=== PATIENT | female | born 1945 | race Caucasian/White ===

== ENCOUNTER 2016-09-10 13:33 | Inpatient (IN) ==
--- NOTE | 2016-09-10 15:18 | Diag Imaging Result Doc PS360 ---
EXAM: CHEST-PORTABLE HISTORY: pleural effusion, right TECHNIQUE: AP portable at 1504 COMMENT: There is complete opacification of the right hemithorax. The heart size and pulmonary vascularity are within normal limits in the left lung is apparently clear. IMPRESSION: Massive right pleural effusion and atelectasis. Possibility of pneumonia on the right cannot be excluded. Electronically signed by Master Carrion 09/10/2016 3:15 PM
--- NOTE | 2016-09-10 17:01 | HISTORY AND PHYSICAL ---
PRIMARY CARE PHYSICIAN: Dr. Elías Oh. GI DOCTOR: Dr. Gutiérrez. CHIEF COMPLAINT: "I wasn't breathing right and my feet were swelling for two days". HISTORY OF PRESENT ILLNESS: Ms. Hernández is a 71-year-old, female, who carries a past medical history of arthritis, COPD, hypertension, thyroid disease, on top of hereditary cramps. The patient stated that she began to get short of breath two days ago. She said she had some swelling THAT started in her feet that moved up to her knees, and then the shortness of breath began, but her reported that she has been short of breath with exertion for a month or longer, as well as ongoing swelling for several months since her last discharge back in November. He actually states that all this goes back further than that. It all stemmed from when she had a cholecystectomy and it was supposed to be done laparoscopic and had to be done open, and he stated that since then she has been ill and has not been her normal self. The patient went to [facility]. She was found to have a large right pleural effusion. Due to their lack of subspecialty with pulmonary, she was transferred to [facility]. She has undergone a chest x- ray that does show a massive right pleural effusion. The patient does not complain of any shortness of breath at this time in the bed; however, she states she is more short of breath with exertion. She does have bilateral lower extremity pitting edema that does go up to her knees; the right is greater than the left. She does complain of intermittent nausea that has been going on for several years. No vomiting. No chest pain. No fever, but she does get chills. She states she has IBS so she alternates between constipation and diarrhea. However, she denies any bloody or dark tarry stools. No dysuria. EKG at [facility] did show normal sinus rhythm. Laboratory data from [facility] showed a sodium of 139, potassium of 3.6. Blood glucose of 120. A BUN of 20 and a creatinine of 1.1. White count of 5, hemoglobin of 11, hematocrit of 37 and a platelet count of 66. I did speak with the patient will about having an ultrasound-guided thoracentesis today; however, she states that she is too tired and hungry, and she would just rather have it in the morning. Again she is resting comfortably in the bed on 3 L nasal cannula, not show any signs of any respiratory distress. PAST MEDICAL HISTORY: 1. Arthritis. 2. COPD on home O2 and nebulizers. 3. Hypertension. 4. Hypothyroidism. 5. Hereditary cramps. 6. Cirrhosis of the liver likely secondary to hepatic steatosis. However, per the this was ruled out by gastroenterologists. 7. Morbid obesity. 8. Thrombocytopenia secondary to liver disease. PAST SURGICAL HISTORY: 1. x2. 2. Right shoulder rotator cuff. 3. Cholecystectomy. 4. Gastric bypass. 5. Thyroidectomy. SOCIAL HISTORY: The patient lives with her . She quit smoking more than 3 years ago. Denies alcohol or illicit drug use. FAMILY HISTORY: Arthritis, asthma, breast cancer, diabetes, hypertension, respiratory conditions, body cramps in the mother and brother and son that they have not been able to diagnose in any other family members, including herself. HOME MEDICATIONS: Have not been reconciled. ALLERGIES: 1. Allergy to iodine causes rash, red face and itching. 2. Oral iodine contrast media. 3. Per the any type of anti anxiety medication causes respiratory distress; however, this is not listed as an allergy. MEDICATION LIST: I do have a medication list, however these have not been confirmed from her PCP office of: 1. Promethazine. 2. Tizanidine. 3. Spironolactone. 4. Levoxyl. 5. Lasix; however per the this has been stopped and the patient has been started on Bumetanide 1 mg two times daily. 6. Ipratropium bromide. 7. Albuterol sulfate. 8. Symbicort. 9. Simethicone. 10. Nucynta. 11. Lomotil. 12. Butrans 20 microgram patch weekly as prescribed by Dr. Murphy per patient report. 13. Nebulizers. REVIEW OF SYSTEMS: Ten point review of systems completely negative, except for those mentioned in HPI. PHYSICAL EXAMINATION: VITAL SIGNS: Temperature is 98.5 degrees, heart rate 97, respirations 18, blood pressure 135/75, O2 is 100% on 3 L nasal cannula. GENERAL: Ms. Hernández is a 71-year-old, morbidly obese, female, who is sitting up in bed in no acute distress. HEENT: Atraumatic, normocephalic. PERRL. NECK: Supple. Trachea midline. CV: No murmurs, gallops, rubs noted. RESPIRATORY: Lung sounds decreased in all lung rutledge. However, it is decreased in all the right lung field and bilaterally decreased in the bases. GI: Obese, soft, nontender, nondistended. Positive bowel sounds 4 quadrants. EXTREMITIES: Have 3+ to 4+ pitting edema. Unable to palpate pedal pulses due to the extremity of her edema. She does have some redness and tenderness to the touch. There is no oozing. She does have upper extremity bilateral bruising. NEURO: Patient is awake, alert, oriented x3. She follows commands. She moves all extremities. SKIN: Frail, dry and intact. Bruising noted to the upper extremities. DIAGNOSTIC DATA: Shows a massive right pleural effusion. LABORATORY DATA: As in HPI from [facility], we are awaiting our own laboratory data. ASSESSMENT AND PLAN: 1. Massive right pleural effusion. We will consult pulmonology. We will schedule an ultrasound- guided paracentesis in the morning. Will continue on her supplemental oxygen , elevate the head of the bed and place her on a healthy heart diet and make her on nothing by mouth after midnight. Continue with her home medications once they have been verified. 2. Chronic obstructive pulmonary disease without exacerbation. Continue home oxygen, as well as her breathing treatments. 3. Arthritis with chronic pain. Continue home medications once they are verified. The patient does have a pain patch on which they state is due to be changed. 4. Asthma. Continue breathing treatments. 5. Hypertension. Continue to monitor. 6. Hypothyroidism status post thyroidectomy. Continue with home Synthroid. 7. Question of cirrhosis of the liver likely due to hepatic steatosis. At one point in time, the patient was on lactulose as well as Xifaxan; however, per her primary care provider she is no longer on these medications. 8. We will go ahead and check an echocardiogram as well as a proBNP. 9. Further recommendation is to follow physician evaluation, laboratory and diagnostic data, as well as pulmonology consult. Dictated by MJ Ruth for Fahad Dickey MD cc: MD Elías Aguilar MD MTDD
[2016-09-10 17:16] LABS: MANUAL DIFF NEEDED? NO
[2016-09-10 17:23] LABS: BASO% 0.5 % (0.0-0.8); EOS# 0.19 X1000 (0.0-0.7); EOS% 3.2 % (0.0-10.0); HEMATOCRIT 39.6 % (37.0-47.0); HEMOGLOBIN 12.6 g/dL (12.0-16.0); LYMPH# 1.05 X1000 (1.2-3.4); LYMPH% 17.7 % (20.5-51.1); MCH 31.1 PG (27-31); MCHC 31.8 g/dL (33-37); MCV 97.8 FL (81-99); MONO# 0.63 X1000 (0.11-0.59); MONO% 10.6 % (1.7-9.3); PLT 73 X1000 (130-400); RBC 4.05 XMIL (4.2-5.4)
[2016-09-10 17:33] LABS: INR 1.13
[2016-09-10 17:40] LABS: ALBUMIN 3.5 g/dL (3.5-5.0); CALCIUM 8.9 mg/dL (8.8-10.2); MAGNESIUM 1.7 mg/dL (1.5-2.7); POTASSIUM 3.5 mmol/L (3.5-5.1); TOTAL BILIRUBIN 2.27 mg/dL (0.20-1.00); TOTAL PROTEIN 6.8 g/dL (6.3-8.3)
[2016-09-10 19:09] LABS: URINE MICRO REVIEW NEEDED? NO; URINE SOURCE CLEAN CATCH
[2016-09-10 19:18] LABS: BILIRUBIN URINE NEGATIVE (NEGATIVE); BLOOD URINE MODERATE (NEGATIVE); COLOR YELLOW; GLUCOSE URINE NEGATIVE (NEGATIVE); LEUKOCYTES URINE SMALL (NEGATIVE); NITRITE URINE NEGATIVE (NEGATIVE); PROTEIN URINE TRACE mg/dL (NEGATIVE); SP GRAVITY URINE 1.014; TURBIDITY URINE CLEAR (CLEAR); UR EPITHELIAL CELLS <10 /HPF (<10); URINE BACTERIA NEGATIVE /HPF; URINE CULTURE NEEDED? YES; URINE RBC TNTC /HPF (<10); UROBILINOGEN URINE 8 mg/dL (NORMAL)
[2016-09-10] MEDS ORDERED: BUPRENORPHINE 20 MCG TD SCH (22:30)
[2016-09-10] MEDS ORDERED: DUONEB (A & A) ONE (22:34)
[2016-09-10] MEDS: ZANAFLEX PO PRN (22:52)
[2016-09-10] MEDS: PHENERGAN PO SCH (22:52)
[2016-09-11 05:05] LABS: MANUAL DIFF NEEDED? NO
[2016-09-11] MEDS: PHENERGAN PO SCH ×2 (05:05→10:36)
[2016-09-11 05:35] LABS: AGAP 7; ALBUMIN 3.1 g/dL (3.5-5.0); ALKALINE PHOSPHATASE 97 U/L (32-104); BUN 16 mg/dL (8-22); CALCIUM 8.3 mg/dL (8.8-10.2); CHLORIDE 97 mmol/L (98-107); COSMO 283; GOT 28 U/L (10-30); GPT 19 U/L (10-36); POTASSIUM 3.7 mmol/L (3.5-5.1); SODIUM 140 mmol/L (136-145); TCO2 36 mmol/L (25-35); TOTAL BILIRUBIN 1.67 mg/dL (0.20-1.00); TOTAL PROTEIN 5.9 g/dL (6.3-8.3)
--- NOTE | 2016-09-11 05:35 | EKG Report ---
Test Performed on : 09/10/2016 4:09:46 PM Test Reason : eval Blood Pressure : / mmHG Vent. Rate : 098 BPM Atrial Rate : 098 BPM P-R Int : 154 ms QRS Dur : 080 ms QT Int : 372 ms P-R-T Axes : 062 029 038 degrees QTc Int : 474 ms Normal sinus rhythm. Normal ECG When compared with ECG of 11-DEC-2015 10:31, T wave inversion no longer evident in Lateral leads Confirmed by Jose D AJ, Elieser West ([id number]) on 09/13/2016 9:10:17 AM
[2016-09-11 05:51] LABS: BASO% 0.5 % (0.0-0.8); EOS# 0.21 X1000 (0.0-0.7); EOS% 3.7 % (0.0-10.0); HEMATOCRIT 36.4 % (37.0-47.0); HEMOGLOBIN 11.4 g/dL (12.0-16.0); LYMPH# 1.12 X1000 (1.2-3.4); LYMPH% 19.5 % (20.5-51.1); MCH 31.1 PG (27-31); MCHC 31.3 g/dL (33-37); MCV 99.2 FL (81-99); MONO# 0.61 X1000 (0.11-0.59); MONO% 10.6 % (1.7-9.3); MPV 12.4 FL (7.4-10.4); NEUT% 65.7 % (42.2-75.2); PLT 66 X1000 (130-400); RBC 3.67 XMIL (4.2-5.4)
[2016-09-11] MEDS: SYNTHROID PO SCH (06:34)
[2016-09-11] MEDS ORDERED: BUPRENORPHINE 20 MCG TD SCH (07:30)
[2016-09-11] MEDS: BUMEX PO SCH ×2 (08:03→21:14)
[2016-09-11] MEDS: NUCYNTA PO SCH ×2 (08:12→21:14)
[2016-09-11] MEDS ORDERED: ALDACTONE PO SCH (09:00)
--- NOTE | 2016-09-11 11:47 | Diag Imaging Result Doc PS360 ---
EXAM: CT THORAX W/O CONTRAST HISTORY: SOB TECHNIQUE: Dose reduction protocol COMPARISON: 12/12/2015 FINDINGS: There is a large right-sided pleural effusion with collapse of the right lung. No left-sided effusion. No cardiomegaly. No thoracic aortic aneurysm. There are small mediastinal lymph nodes. No infiltrates in the left lung. 2 mm nodule anteriorly in the left upper lobe is unchanged. IMPRESSION: Large right pleural effusion with collapse of the right lung. Electronically signed by Coleman Gonzalez 09/11/2016 11:45 AM
--- NOTE | 2016-09-11 14:18 | Diag Imaging Result Doc PS360 ---
EXAM: THORACENTESIS W/IMAGE GUIDANCE INDICATION: right massive pl effusion COMPARISON: 12/12/2015 FINDINGS: Risks, benefits, and alternatives were discussed with the patient and informed consent was obtained. The patient was prepped and draped in sterile fashion and local anesthesia was achieved with 1% lidocaine solution. A large bore catheter was then inserted into the right pleural space and 1.5 L of glory-colored serous fluid was aspirated. There were no known complications. A chest radiograph is to follow. IMPRESSION: Technically successful ultrasound-guided right thoracentesis. Electronically signed by Efrain Yousif 09/11/2016 2:15 PM
--- NOTE | 2016-09-11 14:21 | Diag Imaging Result Doc PS360 ---
EXAM: CHEST-2 VIEWS INDICATION: POST RIGHT THORACENTESIS TECHNIQUE: 2 views-inspiration/expiration COMPARISON: 09/10/2016 FINDINGS: There is no evidence of pneumothorax status post right thoracentesis. There is still at least a small to moderate amount of pleural fluid at the right lung base that remains despite aspirating 1.5 L during the thoracentesis. However, there has been marked improvement of the aeration of the right lung, which was totally opacified previous study. There is still atelectasis at the right lung base. There are no new consolidations. The left lung remains clear. Cardiac silhouette is stable. IMPRESSION: No evidence of pneumothorax status post right thoracentesis with marked improvement of aeration of the right lung since the procedure. Electronically signed by Efrain Yousif 09/11/2016 2:18 PM
--- NOTE | 2016-09-11 14:30 | ECHO REPORT ---
ORDER DATE: 09/10/2016 MEASUREMENTS: 1. Left ventricular end-diastolic diameter 4.7. 2. Systolic diameter 2.7. 3. Septal thickness 0.9. 4. Posterior wall thickness 0.8. 5. Left atrium 3.5. 6. Aortic root 3.3. SUMMARY: 1. Technically difficult study due to limited acoustic window quality. 2. Aortic valve is trileaflet and opens well on 2-dimensional images. Mild mitral annular calcification is demonstrated. There is mild mitral regurgitation. Tricuspid and pulmonic valves are without structural abnormality with mild tricuspid regurgitation. There is trace pulmonic insufficiency. The estimated systolic PA pressure by Doppler is 50 mmHg. Aortic root is normal size. 3. Normal left ventricular dimensions suggested on 2-dimensional images. Estimated left ejection fraction appears to be greater than 70%. No regional wall motion procedure evident. Doppler suggests Grade 1 left ventricular diastolic dysfunction. Left atrium, right atrium, and right ventricle are normal in size with normal right ventricular systolic function. 4. No pericardial effusion. 5. Appearance of inferior vena cava suggests normal central venous pressure. CONCLUSIONS: 1. Technically difficult study. 2. Mild mitral regurgitation. 3. Mild tricuspid regurgitation with moderate pulmonary hypertension by Doppler. 4. Estimated left ejection fraction greater than 70%. 5. Grade 1 left ventricular diastolic dysfunction. cc: MD Fahad Thomas MD
--- NOTE | 2016-09-11 14:48 | Diag Imaging Result Doc PS360 ---
EXAM: US ABDOMEN-COMPLETE INDICATION: R/O Cirrhosis COMPARISON: 12/12/2015 FINDINGS: There has been a previous cholecystectomy. The common bile duct is normal in diameter. The liver is diffusely heterogeneous and it exhibits a vaguely nodular contour suggesting cirrhosis. No well-defined hepatic mass is appreciated. There is a small amount of ascites tracking around the liver. Portal venous flow is hepatopedal. The pancreas is obscured by bowel gas. The mid and distal aorta are obscured by gas. The proximal aorta and IVC are grossly unremarkable. The spleen is unremarkable. The kidneys are grossly unremarkable. IMPRESSION: 1.Heterogeneous and nodular liver suggesting cirrhosis. 2.Small amount of ascites tracking around the liver. Electronically signed by Efrain Yousif 09/11/2016 2:46 PM
--- NOTE | 2016-09-11 15:22 | CONSULTATION ---
DATE OF CONSULTATION: 09/11/2016 REFERRING PHYSICIAN: Fahad Dickey MD PRIMARY CARE PHYSICIAN: Elías Oh MD CHIEF COMPLAINT: Evaluation for pleural effusion. HISTORY OF PRESENTING ILLNESS: A 71-year-old female with a history of COPD, hypertension, sleep apnea, and treated hypoxia home oxygen, cirrhosis who visit to the hospital with shortness of breath. She had thoracentesis in November 2015 that was transudative and at that time, sleep apnea treatment is declined in the past by patient, and we explained the importance again. Had thoracentesis today of 1-1/2 L. Results are pending. PAST MEDICAL HISTORY: Thrombocytopenia. Morbid obesity. Sleep apnea likely. Cirrhosis secondary to hepatic steatosis. Hypothyroidism. Hypertension. COPD. Hypoxia on home oxygen. Arthritis. PAST SURGICAL HISTORY: Thyroidectomy. Gastric bypass. Cholecystectomy. Right shoulder rotator cuff. SOCIAL HISTORY: , living with . Her was present during the evaluation. She is an ex-smoker. FAMILY HISTORY: Hypertension, COPD, diabetes and breast cancer, asthma. MEDICATIONS: Home medications reviewed. REVIEW OF SYSTEMS: Review of systems as detailed in history of presenting illness, otherwise noncontributory. ALLERGIES: Iodine contrast. MEDICATIONS: Medications in the hospital and at home were reviewed and they include in the hospital nebulized treatment, Symbicort, Bumex, Atrovent, lactulose, Synthroid, Zofran, Phenergan, Aldactone, and Nucynta. PHYSICAL EXAMINATION: General: She is in bed on nasal cannula oxygen. She is obese. at bedside. Vital Signs: Noted. Head and neck: Trachea midline. Oxygen saturation 99% on 2 L nasal cannula. Trachea midline. Chest: Reduced entry at the bases. Cardiac: S1, S2. Abdomen: Nontender, obese, postsurgical scars in the past. Lower limb examination: +1 pedal edema. Neurological: Awake and communicative. Slightly lethargic. DIAGNOSTICS: Chest x-ray: Right effusion. Chest CT scan reviewed, right effusion. Labs and investigations as above and ABGs ordered. CBC CMP reviewed. WBC 5.75, platelets 66,000, potassium 3.7, creatinine 0.9, hemoglobin 11.4. In the past she had pleural effusion sensitive. ASSESSMENT AND PLAN: She is a 71-year-old female with past medical history as above. Cirrhosis is an important noteworthy. Chronic obstructive pulmonary disease, hypoxia, home oxygen and sleep apnea, now untreated. Patient declined in the past and we raised this discussion again. 1. Pleural effusion is multifactorial secondary to #2. 2. Cirrhosis. 3. Transudative effusion in the past. Sleep apnea likely contributing to this. 4. Shortness of breath. 5. Sleep apnea. Needs treatment as outpatient and the discussion was held again. Thank you for the courtesy of this consultation. Discussed with Dr. Peterson and the patient and her . cc: MD Fahad Soriano MD
--- NOTE | 2016-09-11 15:32 | CONSULTATION ---
DATE OF CONSULTATION: 09/11/2016 REASON FOR CONSULTATION: For evaluation of this patient with mild cirrhosis of the liver. HISTORY OF PRESENT ILLNESS: This is a 71-year-old lady, known to me from previous admission and office visits. The patient was brought to the hospital having been transferred from [facility] after having been there for severe shortness of breath. The patient was found to have a large right-sided pleural effusion. In 11/2015, she was admitted with the same situation. At that time, I have seen her. The patient is being seen by a recordak operator and CT scan of the thorax is being done to assess the pleural effusion so that it can be aspirated and removed. This consultation is to evaluate the role of cirrhosis of the liver and this patient' s recurrent pleural effusion. During 11/2015, the patient was admitted to the hospital with similar problem. At that time, GI evaluation was done. The patient had a Child-Garcia Class cirrhosis of the liver based on the parameters. At that time, my assessment was that the patient had only mild cirrhosis of the liver with steatohepatitis and that might have contributed to some fluid collection but not entirely from cirrhosis of the liver. The patient had advanced to chronic obstructive pulmonary disease with possible cor pulmonale, pulmonary hypertension and right-sided what heart failure. Right- sided heart failure can contribute to liver congestion and that might result actually in ascites. On management of the right-sided congestion, the symptoms should improve. The patient had advanced chronic obstructive pulmonary disease, and it is unlikely that there will be significant improvement in her COPD. This time also, the same question arose, and a consultation was obtained. The patient was seen by me in the office after the last hospitalization in 01/2016. At that time, her pedal edema was much better. The pleural effusion had actually resolved and her breathing was much better. I just simply placed her on small dose of Aldactone which was 25 mg daily. She had a significant electrolyte imbalance when she took Lasix, so her primary care doctor had discontinued Lasix. I recommended that she be placed back on small dose of Lasix also to control her mild pedal edema and prevent her from getting significant ascites which might help prevent that pleural effusion reaccumulating. The patient became short of breath about 2 weeks ago, and she is in the hospital; admitted yesterday. PAST MEDICAL HISTORY: 1. Morbid obesity. 2. Chronic arthritis involving most of the joints. 3. Chronic obstructive pulmonary disease on home oxygen and nebulizers. 4. Hypertension. 5. Hypothyroidism. 6. Some hereditary cramps in the legs in a few family members. 7. Morbid obesity from the history and earlier bypass surgery. According to the patient, this happened more than 35-40 years ago. Apparently it was a jejunoileal bypass surgery and not gastric bypass surgery. The patient said that her brother also had the same surgery and he did quite well. 8 Obstructive sleep apnea PAST SURGICAL HISTORY: 1. sections x2. 2. Right shoulder rotator cuff surgery. 3. Recent cholecystectomy. 4. Remote jejunoileal bypass for weight loss. 5. Tubal ligation. 6. Thyroidectomy. SOCIAL HISTORY: The patient lives with her and quit smoking about 4 years ago. Denies any alcohol or illicit drug use. FAMILY HISTORY: There is history of arthritis, asthma, breast cancer, diabetes mellitus, hypertension, COPD in the family. Her mother had these leg cramps and her brother had these cramps and son also have the cramps. REVIEW OF SYSTEMS: Patient is lying down with no significant discomfort. She is slightly short of breath. There is some cough. No significant chest pain at this moment. There is no fever or chills. No significant abdominal pain. Abdomen seems to be slightly tense. She has chronic constipation but no diarrhea, blood in stool, or black stools. Extremities have significant pedal edema with some mild discoloration of the skin secondary to chronic venous stasis. No difficulty in swallowing. No loss of appetite. PHYSICAL EXAMINATION: General: The patient is alert, oriented x3. Vital Signs : The temperature is 98.6 degrees, pulse rate is 98 per minute, respiratory is 22. Blood pressure is 176 x 51. Skin: Warm and dry. Mucous membranes are moist. Neck: Supple. There is no thyromegaly. Cardiac: Both heart sounds are heard. Rhythm is slightly tachycardic. I could not hear any murmur. Lungs: Reveal some hyperresonance on percussion with bilateral basilar crackles, more on the left than on the right. I could not get any percussion done on the right side. Abdomen: Protuberant. Scars from previous surgery present. Some abnormal veins are present in the anterior abdominal wall. Irregularity of the anterior abdominal wall secondary to weakness in the muscle wall. The lower abdomen seems to be having no pain. Extremities: Pedal edema present but it is rhabdoid pain. Compression stockings at this point. LABORATORY DATA: Today's WBC count is 5.76, hemoglobin is 7.4, hematocrit 36.4 , the platelet count is a 66,000; it was 73,000 before; last year, the platelet count was 93, 000. This year the ProTime is 12.0/ INR is 1.13; last year, the ProTime was 12.5. INR is 1.18. Sodium 140, potassium 3.7, chloride 97, CO2 is 36. Last year also the CO2 was similar. Glucose is 133. Calcium is 8.3. Bilirubin was 1.67; last year, it was 1.62. ASTs were remaining normal this year; last year, slightly elevated to 39. Alkaline phosphatase 112. Ammonia level was 106 last year; currently it is 65. Total protein was 6.5, albumin was 3.6. At the time of entry, the total protein was 6.8, albumin was 3.5; today, the total protein is 5.9, albumin is 3.1. It dropped a little. Urine shows RBCs too numerous to count, WBC 10-20. CT scan of the thorax showed a large right-sided pleural effusion with collapse of the right lung. No left-sided effusion. No cardiomegaly. There are small mediastinal lymph nodes. No infiltrates in the left lung. 2 mm nodule anteriorly in the left lobe which was unchanged. IMPRESSION: 1. Large pleural effusion. 2. Mild cirrhosis of the liver. Child-Garcia Class A which is unchanged from the previous year. 3. Severe chronic obstructive pulmonary disease. 4. Cor pulmonale secondary to #3. DISCUSSION: This patient has recurrent episodes of pleural effusion, and it is quite possible that her cirrhosis might have contributed slightly to the pleural effusion. However, if she only had cirrhosis of the liver, Class A, I am sure there would not have been any pleural effusion. In the absence of significant ascites, the pleural effusion has to have another etiology also. Due to diminishing albumin level fron acute sickness and poor P.O. intake she may slip into Class B cirrhosis any time which will eventually show up with ascites I am not disputing the fact that the possibility of some venous congestion must help contribute to the pleural effusion on the right side which is common along with ascites in patients with cirrhosis of the liver. It is much more common to see patients with right-sided pleural effusion in cirrhosis of the liver than on the left side; however, based on the patient's clinical stage of cirrhosis of the liver, that is not the only cause of the pleural effusion. One has to look for other contributing factors such as a pulmonary etiology which has to be sought for. This patient's left lung has significant COPD. The right lung, itself, is already collapsed so , at any rate, management should be addressed to try to make the right lung expand as soon as possible. Otherwise, the pulmonary function will be very much compromised and the patient will have significant worsening of her cor pulmonale. Her morbid obesity also could contribute to her pulmonary hypertension. and also obstructive sleep apnea I have discussed this case at length with Dr. Peterson and encouraged the patient's and the patient regarding her problems. I believe she is getting a thoracentesis done as soon as possible. cc: MD Eílas Aguilar MD Ronnie Najjar MTDD
[2016-09-11] MEDS ORDERED: APRESOLINE IV PRN (16:12)
--- NOTE | 2016-09-11 16:37 | PROGRESS NOTE ---
DATE: 09/11/2016 SUBJECTIVE: This patient just came back from getting a thoracentesis done. 1.5 L of glory fluid has been removed. Gastroenterology Department and Pulmonary Department are following this patient. OBJECTIVE: Vital Signs: Temperature 98.6 degrees, pulse 99, respiratory rate 16, blood pressure 176/51. Oxygen saturation 96% on 2 L of nasal cannula. HEENT: Head normocephalic. No trauma. PERRLA. Neck supple. No JVD. No masses. Central trachea. Chest: Left side is clear to auscultation. No wheezing. No rales. The right side has decreased breath sounds at the bases with crackles at the level of the mid and upper lobe. Abdomen soft, distended. It looks like she has an anterior wall hernia and previous scars from surgery. Extremities: 3 to 4+ pitting edema. No clubbing. No cyanosis. Neurologic: The patient is alert and oriented x3. She follows commands. She moves all 4 extremities. LABORATORY: WBC 5.7, hemoglobin 11.4, hematocrit 36.4, platelets 66,000. Sodium 140, potassium 3.7, chloride 97, bicarbonate 36. BUN 16, creatinine 0.9. Glucose 133. Calcium 8.3. Albumin 3.1. ASSESSMENT AND PLAN: 1. Massive right pleural effusion. Pulmonary Department is following this patient. A thoracentesis has been done today, and they removed 1.5 L of glory fluid. Lab work has been ordered and pending. I will continue with her home medications. She is on Aldactone 25 mg p.o. daily. 2. Chronic obstructive pulmonary disease without exacerbation. Continue with oxygen as well as breathing treatment, pulmonary toilet. 3. Arthritis with chronic pain. Continue with home medication. 4. Asthma. Continue with breathing treatment. 5. Hypertension. I am going to start this patient on blood pressure medication today. 6. Hypothyroidism, status post thyroidectomy. Continue with home Synthroid. 7. 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 We will continue with lactulose p.r.n. Overall, this patient is feeling about the same. She just had a thoracentesis done today. I had a large conversation with the and with the patient about her situation. It looks like the reason of the massive right pleural effusion is secondary to liver injury and also probably right side heart failure secondary to liver injury, probably a component of cor pulmonale and obstructive sleep apnea. They seem to understand this. For now, we will continue managing this patient with the same management. CRITICAL CARE TIME: 40 minutes. cc: Fahad Dickey MD
[2016-09-11 16:58] LABS: SPECIMEN PLEURAL FLUID
[2016-09-11 17:22] LABS: DIFF NEEDED? YES; WBC BF 130 /cumm
[2016-09-11 17:27] LABS: MONOS 88 %; POLYS 12 %
[2016-09-11] MEDS: ATROVENT NEB INH PRN (17:49)
[2016-09-11] MEDS: ALBUTEROL NEB INH PRN ×2 (17:49→23:10)
[2016-09-11] MEDS: SYMBICORT 160/4.5 MICROGM INHALER INH SCH ×2 (17:51→19:15)
--- NOTE | 2016-09-11 17:59 | Diag Imaging Result Doc PS360 ---
EXAM: CHEST-PORTABLE HISTORY: Dyspnea TECHNIQUE: Portable upright COMPARISON: Films taken several hours earlier. FINDINGS: Interval development of infiltrates in the right lung. Small effusion and atelectasis remain. Left lung is clear. The heart is not enlarged. No pneumothorax identified. IMPRESSION: Interval worsening with development of infiltrates in the right lung. Electronically signed by Coleman Gonzalez 09/11/2016 5:57 PM
[2016-09-11] MEDS: ZANAFLEX PO PRN (21:13)
[2016-09-11] MEDS: PHENERGAN PO PRN (21:15)
[2016-09-11] MEDS: ZOSYN 3.375 GM/NS 3.375 GM/50 ML IVPB IV SCH (23:27)
[2016-09-12] MEDS: ZOSYN 3.375 GM/NS 3.375 GM/50 ML IVPB IV SCH ×4 (03:17→20:27)
[2016-09-12 05:05] LABS: ALLEN TEST YES; BLOOD TYPE ARTERIAL; DRAW SITE R RADIAL; METHB 1.3 % (0.0-1.5); MODALITY CANNULA; O2(CT) 15.7 mL/dL (15.0-23.0); PCO2(98.6) 69 mmHg (35-45); PO2(98.6) 88 mmHg (60-100); SAMPLE BLOOD; SAO2 97.6 % (95.0-100.0); THB 11.7 g/dL (11.5-17.4); pH(98.6) 7.38 (7.35-7.45)
[2016-09-12 05:14] LABS: MANUAL DIFF NEEDED? NO
[2016-09-12 05:23] LABS: BASO% 0.4 % (0.0-0.8); EOS# 0.21 X1000 (0.0-0.7); EOS% 2.6 % (0.0-10.0); HEMATOCRIT 36.5 % (37.0-47.0); HEMOGLOBIN 11.3 g/dL (12.0-16.0); IMM GRAN# 0.02 X1000 (0.0-0.04); IMM GRAN% 0.3 % (0.0-0.5); LYMPH# 1.24 X1000 (1.2-3.4); LYMPH% 15.6 % (20.5-51.1); MCV 100.3 FL (81-99); MONO# 0.72 X1000 (0.11-0.59); MONO% 9.1 % (1.7-9.3); MPV 12.6 FL (7.4-10.4); PLT 71 X1000 (130-400); RBC 3.64 XMIL (4.2-5.4)
[2016-09-12 05:42] LABS: AGAP 9; ALBUMIN 2.8 g/dL (3.5-5.0); ALKALINE PHOSPHATASE 96 U/L (32-104); BUN 17 mg/dL (8-22); CALCIUM 8.4 mg/dL (8.8-10.2); CHLORIDE 97 mmol/L (98-107); COSMO 289; GOT 31 U/L (10-30); GPT 21 U/L (10-36); SODIUM 144 mmol/L (136-145); TCO2 38 mmol/L (25-35); TOTAL BILIRUBIN 1.73 mg/dL (0.20-1.00); TOTAL PROTEIN 5.7 g/dL (6.3-8.3)
[2016-09-12] MEDS: SYNTHROID PO SCH (06:02)
--- NOTE | 2016-09-12 07:23 | Diag Imaging Result Doc PS360 ---
EXAM: CHEST-PORTABLE HISTORY: dyspnea TECHNIQUE: AP portable at 0500 COMMENT: There is a fairly large right pleural effusion which may be loculated. There is alveolar and interstitial density throughout the entire right lung. Some of this may be due to atelectasis. The left lung is stable in appearance compared to 09/11/2016. IMPRESSION: Right pleural effusion with right lung atelectasis and pulmonary edema. Possibility of pneumonia cannot be excluded. Electronically signed by Master Carrion 09/12/2016 7:21 AM
[2016-09-12] MEDS: SYMBICORT 160/4.5 MICROGM INHALER INH SCH ×2 (07:39→19:18)
[2016-09-12] MEDS: ALBUTEROL NEB INH PRN ×3 (07:39→19:18)
[2016-09-12] MEDS: ATROVENT NEB INH PRN ×2 (07:39→15:45)
[2016-09-12] MEDS: ALDACTONE PO SCH (08:44)
[2016-09-12] MEDS: NUCYNTA PO SCH ×2 (08:44→20:26)
[2016-09-12] MEDS: BUMEX PO SCH ×2 (08:44→20:27)
[2016-09-12] MEDS ORDERED: NON-FORMULARY MED TOP SCH (09:00)
[2016-09-12] MEDS: ZOFRAN IV PRN ×2 (09:20→13:23)
[2016-09-12] MEDS: PHENERGAN PO PRN (10:00)
--- NOTE | 2016-09-12 14:26 | PROGRESS NOTE ---
DATE: 09/12/2016 SUBJECTIVE: This patient states that she is feeling nauseated, and she has been trying to vomit during the day. Also she has been complaining of constipation. She is complaining of mild shortness of breath. Family members at the bedside. All her questions were answered. OBJECTIVE: Vital Signs: Temperature 97.5 degrees, pulse 98, respiratory rate 18, blood pressure 152/74, oxygen saturation 94 on 5 L of nasal cannula. HEENT: Head normocephalic. No trauma. PERRLA. Neck: Supple. No JVD. No masses. Central trachea. Chest: Left side clear to auscultation. No wheezing. Mild rales at the bases. The right side has decreased breath sounds at the bases and crackles at the level of the mid and upper lobe. Abdomen: Soft, obese. It looks like she has an anterior wall hernia and previous scars from surgery. Extremities: Three to 4+ pitting edema. No clubbing. No cyanosis. Neurological: The patient is alert and oriented x3. No focal neurological deficits. She moves all 4 extremities. LABORATORY: WBC 7.9, hemoglobin 11.3, hematocrit 36.5, platelets 71,000. Sodium 144, potassium 4, chloride 97, bicarbonate 38, BUN 17, creatinine 0.9, glucose 114, calcium 8.4. Albumin 2.8. ASSESSMENT AND PLAN: 1. Massive right pleural effusion. This is likely multifactorial. I do believe that this patient has liver cirrhosis. and probably some right heart failure. The patient was evaluated by the Pulmonary Department and they also recommended a sleep study for this patient. Probably she will need a CPAP machine. She is status post thoracentesis and 1.5 L of glory fluid was removed. Pending cytology report. 2. COPD without exacerbation. Continue with oxygen and we put this patient on breathing treatments as well and pulmonary toilet. 3. Arthritis and chronic pain. Continue with home medication. 4. Asthma. Continue with breathing treatment. 5. Hypertension. Continue to monitor. The blood pressure has been stable. 6. Hypothyroidism. Continue with Synthroid. 7. Liver cirrhosis. Probably Child's class A. We will continue with lactulose p.r.n. and Aldactone. CRITICAL CARE TIME: 35 minutes. cc: Fahad Dickey MD
--- NOTE | 2016-09-12 14:30 | PROGRESS NOTE ---
DATE: 09/12/2016 SUBJECTIVE: This patient was seen by me yesterday and I discussed the situation with Dr. Fahad Dickey and also with the patient's and the patient. 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 The patient does not seem to be in hepatic failure because hers cirrhosis of the liver is mildly in Class A. Her albumin when she came in was 3.5 although it dropped to 3.1 yesterday. She has current conditions such as large right-sided pleural effusion. When patients are sick with acute problems, there albumin level is known to come down, not just from underlying cirrhosis of the liver but from a of poor nutritional status and to the fact that the patient has an acute process going on. Lowering of the albumin is known to happen in such situations. The ultrasound of the abdomen has show Heterogeneous and nodular liver suggesting cirrhosis. The common bile duct was in normal diameter. There was a small amount of fluid tracking around the liver. The portal flow was hepatopetal. The spleen size was unremarkable. The patient had been complaining of right upper quadrant pain since her cholecystectomy on 03/04/[address] Jenkins. The has been complaining to me about that pain and also the patient; therefore, I reviewed the records and found out that it was an open cholecystectomy. There was a lot of adhesions in the right upper quadrant because of the previous bypass surgery and they had to do a lot of dissection to separate the transverse colon from the gallbladder area and the duodenum. A large stone was present in the gallbladder and eventually it was removed and the cholecystectomy was done. The postoperative cholangiogram was negative without any stones. There was an uneventful recovery at that time; however, the patient continued to have the same right upper quadrant pain which she had from before. That has been in issue. PHYSICAL EXAMINATION: Vital Signs: Her temperature is 97.5 degrees, the pulse rate is not known, respiratory rate 17, blood pressure is 152/74. General Appearance: She has a lying flat on the bed with no significant difficulty in breathing. Abdominal Examination: Reveals that abdomen is distended like before. There is slight tenderness in the right upper quadrant with a nodular feeling there, with some weakness on the muscles. I did not actually feel any masses in that area. Bowel sounds are heard. LAB DATA: Revealed that the WBC count is 7.94, hemoglobin 11.3, hematocrit 36.5. The platelet count is 71,000. The blood gases revealed that the pH is 7.38, CO2 is 69, which is quite high, on an FiO2 of 40%. The sodium is 144, potassium 4, chloride is 97, CO2 is 38. The bilirubin is 1.73. SGOT is 31, SGPT 21. Albumin has dropped to 2.8. I reviewed the ultrasound done on 12/12/2015, which was not different from what it was done yesterday. IMPRESSION: 1. Right upper quadrant pain, probably to secondary to adhesions. 2. Right-sided pleural effusion. Already abdominal paracentesis is done. 3. Cirrhosis of the liver Class A to B. 4. Possible underlying pneumonia of the right lung. 5. Severe chronic obstructive pulmonary disease. RECOMMENDATIONS: This patient cannot undergo any kind of deep sedation for any kind of procedure; therefore, I will refrain from doing any endoscopy procedures on her. Most likely the abdominal pain, which is chronic, is secondary to the adhesions in the right upper quadrant due to cholecystectomy and prior surgery. If laparoscopy is done, and additional lysis is done, it may perhaps improve the pain, but it can contribute to more adhesions and that is not encouraged. I am not sure whether she can undergo any kind of anesthesia at this point. I discussed the matter with the patient's at length and reassured him and also discussed the various other problems, which will put her life at risk. He seems to understand. cc: MD Elías Aguilar MD Mamoun I. Najjar, MD
[2016-09-12 14:47] LABS: TOTAL PROT BODY FLUID 2.8 g/dL
[2016-09-13] MEDS: LACTULOSE PO PRN (00:01)
[2016-09-13] MEDS: ZOSYN 3.375 GM/NS 3.375 GM/50 ML IVPB IV SCH ×4 (01:49→21:50)
[2016-09-13] MEDS ORDERED: LASIX IV ONE (02:31)
[2016-09-13] MEDS: ZOFRAN IV PRN ×2 (02:48→12:46)
[2016-09-13] MEDS: ALBUTEROL NEB INH PRN ×4 (03:05→19:44)
[2016-09-13 05:06] LABS: MANUAL DIFF NEEDED? NO
[2016-09-13 05:26] LABS: ALBUMIN 3.5 g/dL (3.5-5.0); POTASSIUM 3.8 mmol/L (3.5-5.1); TOTAL BILIRUBIN 1.68 mg/dL (0.20-1.00); TOTAL PROTEIN 6.9 g/dL (6.3-8.3)
[2016-09-13 05:52] LABS: BASO% 0.2 % (0.0-0.8); EOS# 0.01 X1000 (0.0-0.7); EOS% 0.1 % (0.0-10.0); HEMATOCRIT 38.5 % (37.0-47.0); HEMOGLOBIN 12.1 g/dL (12.0-16.0); IMM GRAN# 0.03 X1000 (0.0-0.04); IMM GRAN% 0.3 % (0.0-0.5); LYMPH# 0.88 X1000 (1.2-3.4); LYMPH% 8.2 % (20.5-51.1); MCH 31.2 PG (27-31); MCHC 31.4 g/dL (33-37); MCV 99.2 FL (81-99); MONO% 8.4 % (1.7-9.3); MPV 12.4 FL (7.4-10.4); NEUT% 82.8 % (42.2-75.2); PLT 86 X1000 (130-400); RBC 3.88 XMIL (4.2-5.4)
[2016-09-13] MEDS: SYNTHROID PO SCH (06:20)
--- NOTE | 2016-09-13 07:15 | Diag Imaging Result Doc PS360 ---
EXAM: CHEST-PORTABLE HISTORY: Plueral effusion TECHNIQUE: AP portable at 0500 COMMENT: There is a large right pleural effusion. This may be loculated. There is atelectasis throughout the right lung. The left lung is stable in appearance compared to 09/12/2016. The volume of fluid on the right may be slightly increased. IMPRESSION: Large right pleural effusion with generalized atelectasis of the right lung. The possibility of underlying pneumonia cannot be excluded. Electronically signed by Master Carrion 09/13/2016 7:12 AM
[2016-09-13] MEDS: BUMEX PO SCH ×2 (08:41→23:21)
[2016-09-13] MEDS: NUCYNTA PO SCH ×2 (08:42→23:21)
[2016-09-13] MEDS: ALDACTONE PO SCH (08:42)
[2016-09-13] MEDS: DULCOLAX PR SCH (08:43)
[2016-09-13] MEDS: SYMBICORT 160/4.5 MICROGM INHALER INH SCH ×2 (11:44→19:40)
[2016-09-13] MEDS: ATROVENT NEB INH PRN ×3 (11:45→19:44)
--- NOTE | 2016-09-13 17:20 | PROGRESS NOTE ---
DATE: 09/13/2016 SUBJECTIVE: This patient is still nauseated but apparently she is breathing better. Gastroenterology Department and Pulmonary Department is following this patient. When I evaluated this patient she was lying on the bed comfortably. OBJECTIVE: Vital Signs: Temperature 98 degrees, pulse 109, respiratory rate 16, blood pressure 143/77, oxygen saturation 94% on 3.5 L on nasal cannula. HEENT: Head normocephalic. No trauma. PERRLA. Neck: Supple. No JVD. No masses. Central trachea. Chest: Left side with mild rhonchi. Right side decreased breath sounds with rales. Abdomen: Soft, obese, and it looks like she has an anterior wall hernia and previous scars from surgery. Extremities: Three to 4+ pitting edema. No clubbing. No cyanosis. Neurological: The patient was sleepy but arousable. Oriented x3. LABORATORY: WBC 10.7, hemoglobin 12.1, hematocrit 38.5, platelets 86,000. Sodium 142, potassium 3.8, chloride 95, bicarbonate 36. BUN 17, creatinine 1.1, glucose 135, calcium 9. AST 31. Total bilirubin 1.6. ALT 23, alkaline phosphatase 103. ASSESSMENT AND PLAN: 1. Massive right pleural effusion. This is likely multifactorial. This patient has liver cirrhosis but also she can have right heart failure. Patient was evaluated by Pulmonary Department and they have recommended also a sleep study for this patient. I agree probably this patient needs a CPAP machine as well. She had a thoracentesis done and 1.5 L of glory fluid was removed. 2. COPD without exacerbation. Continue with oxygen and breathing treatment as well as pulmonary toilet. 3. Arthritis and chronic pain. Continue with home medication. 4. Asthma. Continue with breathing treatment. 5. Hypertension. Continue to monitor. The blood pressure has been stable. 6. Hypothyroidism. Continue with Synthroid. 7. Liver cirrhosis. Probably Child's class A, probably B. Continue wound with lactulose p.r.n. and Aldactone. Also I provided this patient with suppository rectally for constipation. cc: Fahad Dickey MD
[2016-09-13] MEDS: ZANAFLEX PO PRN (17:47)
[2016-09-14] MEDS: LACTULOSE PO PRN (00:08)
[2016-09-14] MEDS: ZOSYN 3.375 GM/NS 3.375 GM/50 ML IVPB IV SCH ×4 (03:15→20:45)
[2016-09-14] MEDS: ALBUTEROL NEB INH PRN ×4 (03:21→19:33)
[2016-09-14] MEDS: ATROVENT NEB INH PRN ×4 (03:21→19:33)
[2016-09-14] MEDS: ZANAFLEX PO PRN ×2 (03:32→20:52)
[2016-09-14 05:40] LABS: MANUAL DIFF NEEDED? NO
[2016-09-14 06:00] LABS: BASO% 0.3 % (0.0-0.8); EOS# 0.22 X1000 (0.0-0.7); EOS% 3.7 % (0.0-10.0); HEMATOCRIT 32.6 % (37.0-47.0); HEMOGLOBIN 9.7 g/dL (12.0-16.0); LYMPH# 0.98 X1000 (1.2-3.4); LYMPH% 16.5 % (20.5-51.1); MCH 30.5 PG (27-31); MCHC 29.8 g/dL (33-37); MCV 102.5 FL (81-99); MONO# 0.66 X1000 (0.11-0.59); MONO% 11.1 % (1.7-9.3); MPV 12.4 FL (7.4-10.4); NEUT% 68.4 % (42.2-75.2); PLT 71 X1000 (130-400); RBC 3.18 XMIL (4.2-5.4)
[2016-09-14 06:14] LABS: CALCIUM 8.1 mg/dL (8.8-10.2); POTASSIUM 3.5 mmol/L (3.5-5.1)
[2016-09-14] MEDS: SYNTHROID PO SCH (06:36)
[2016-09-14] MEDS: BUMEX PO SCH ×2 (08:13→20:45)
[2016-09-14] MEDS: ALDACTONE PO SCH (08:13)
[2016-09-14] MEDS: NUCYNTA PO SCH ×2 (08:13→20:45)
[2016-09-14] MEDS: DULCOLAX PR SCH (08:14)
[2016-09-14] MEDS: SYMBICORT 160/4.5 MICROGM INHALER INH SCH ×2 (09:28→19:29)
--- NOTE | 2016-09-14 14:40 | PROGRESS NOTE ---
DATE: 09/14/2016 SUBJECTIVE: This patient feels much better today. When I evaluated this patient, she was sleepy but arousable, oriented x3. She is not complaining of chest pain. She is still having mild shortness of breath. Her urine has been fine. BUN and creatinine have been stable. We will continue with the same treatment for now. She had a thoracentesis done a few days ago and 1.5 L were removed from the right side. She had a bowel movement yesterday OBJECTIVE: Vital Signs: Temperature 98.7 degrees, pulse 95, respiratory rate 19, blood pressure 106/56, oxygen saturation 97% on 3 L of nasal cannula. HEENT: Head normocephalic. No trauma. PERRLA. Neck: Supple. No JVD. No masses. Central trachea. Chest: Left side with mild rhonchi scattered. Right side: Decreased breath sounds at the bases mostly with rales. Abdomen soft, obese. It looks like she has an intact anterior wall hernia and previous scars from surgery. Extremities 3+ lower extremity edema. No clubbing. No cyanosis. Neurological: The patient is sleepy but arousable, oriented x3. She moves all 4 extremities. LABORATORY: WBC 5.9, hemoglobin 9.7, hematocrit 32.6, platelets 71,000. Sodium 144, potassium 3.5, chloride 96, bicarbonate 39. BUN 17, creatinine 1.1, glucose 111. Calcium 8.1. ASSESSMENT AND PLAN: 1. Massive right pleural effusion. This is likely multifactorial. This patient has liver cirrhosis but also she can have right heart failure. Pulmonary Department also has recommended a sleep study for this patient. Likely, she has sleep apnea, and she will need a CPAP machine. Thoracentesis done and 1.5 L of glory fluid was removed. 2. Chronic obstructive pulmonary disease without exacerbation. Continue with oxygen and breathing treatment as well as pulmonary toilet. 3. Arthritis and chronic pain. Continue with home medications. 4. Asthma. Continue with breathing treatment. 5. Hypertension. Continue to monitor. The blood pressure has been stable. 6. Hypothyroidism. Continue with Synthroid. 7. Liver cirrhosis. Probably Dom-Garcia Class A. Continue with lactulose p.r.n. and Aldactone and also continue with suppository as needed for constipation. cc: Fahad Dickey MD
[2016-09-14] MEDS: ZOFRAN IV PRN (20:44)
[2016-09-14] MEDS: PHENERGAN PO PRN (22:28)
[2016-09-15] MEDS: ZOSYN 3.375 GM/NS 3.375 GM/50 ML IVPB IV SCH ×4 (01:51→19:29)
[2016-09-15] MEDS: ATROVENT NEB INH PRN ×4 (03:20→22:04)
[2016-09-15] MEDS: ALBUTEROL NEB INH PRN ×4 (03:20→22:04)
[2016-09-15 05:24] LABS: MANUAL DIFF NEEDED? NO
[2016-09-15 05:43] LABS: BASO% 0.3 % (0.0-0.8); EOS# 0.24 X1000 (0.0-0.7); HEMATOCRIT 33.8 % (37.0-47.0); HEMOGLOBIN 10.4 g/dL (12.0-16.0); LYMPH# 0.87 X1000 (1.2-3.4); LYMPH% 14.7 % (20.5-51.1); MCH 31.2 PG (27-31); MCHC 30.8 g/dL (33-37); MCV 101.5 FL (81-99); MONO# 0.66 X1000 (0.11-0.59); MONO% 11.1 % (1.7-9.3); MPV 11.9 FL (7.4-10.4); NEUT% 69.9 % (42.2-75.2); PLT 66 X1000 (130-400); RBC 3.33 XMIL (4.2-5.4)
[2016-09-15] MEDS: SYNTHROID PO SCH (06:19)
[2016-09-15 06:22] LABS: AGAP 6; ALBUMIN 3.1 g/dL (3.5-5.0); ALKALINE PHOSPHATASE 94 U/L (32-104); BUN 14 mg/dL (8-22); CALCIUM 8.2 mg/dL (8.8-10.2); CHLORIDE 96 mmol/L (98-107); COSMO 289; GOT 26 U/L (10-30); GPT 26 U/L (10-36); POTASSIUM 3.4 mmol/L (3.5-5.1); SODIUM 144 mmol/L (136-145); TCO2 42 mmol/L (25-35); TOTAL BILIRUBIN 0.88 mg/dL (0.20-1.00); TOTAL PROTEIN 5.8 g/dL (6.3-8.3)
--- NOTE | 2016-09-15 07:54 | Diag Imaging Result Doc PS360 ---
EXAM: CHEST-PORTABLE INDICATION: dyspnea TECHNIQUE: One view COMPARISON: 09/13/2016 FINDINGS: The large right pleural effusion seen previously appears to have continued to increase in size. There is associated increasing atelectasis on the right. As stated previously, underlying pneumonia is possible. The left lung is stable. Cardiac silhouette is stable. IMPRESSION: Increase in the already large right pleural effusion. Electronically signed by Efrain Yousif 09/15/2016 7:51 AM
[2016-09-15] MEDS: NUCYNTA PO SCH ×3 (07:59→22:49)
[2016-09-15] MEDS: ALDACTONE PO SCH (07:59)
[2016-09-15] MEDS: BUMEX PO SCH ×3 (08:00→22:49)
[2016-09-15] MEDS: DULCOLAX PR SCH (08:00)
[2016-09-15] MEDS: SYMBICORT 160/4.5 MICROGM INHALER INH SCH ×2 (09:35→19:47)
--- NOTE | 2016-09-15 11:23 | PROGRESS NOTE ---
DATE: 09/15/2016 SUBJECTIVE: This patient feels better. Her is at the bedside. She has been having daily bowel movements and some of them are diarrhea. Apparently, she has been taking a lot of apple juice. No lactulose. She has been having suppositories. BUN and creatinine have been stable. We will continue with the same treatment for now. She still has a large place the right pleural effusion. Probably, this patient will need a new thoracentesis again. OBJECTIVE: Vital Signs: Temperature 98.7 degrees, pulse 100, respiratory rate 18, blood pressure 113/69, oxygen saturation 96 on 3 L of nasal cannula. HEENT: Head normocephalic. No trauma. PERRLA. Neck: Supple. No JVD. No masses. Central trachea. Chest: Left side with decreased breath sounds at the bases. Right side with decreased breath sounds at the level of the mid and lower lungs with rales. Abdomen: Soft, obese. It looks like she has an anterior wall hernia and previous scars from surgery. Extremities: There is 3 to 4+ lower extremity edema. No clubbing. No cyanosis. Neurological Examination: The patient is alert and oriented x3. No focal deficits. Laboratory: WBC 5.9, hemoglobin 10.4, hematocrit 33.8, platelets 66,000. Sodium 144, potassium 3.4, chloride 96, bicarbonate 42, BUN 14, creatinine 0.9, glucose 126, calcium 8.2, albumin 3.1. ASSESSMENT AND PLAN: 1. Massive right pleural effusion, status post thoracentesis with 1.5 L of glory fluid removed. This patient still has pleural effusion. Probably tomorrow, she will have a new thoracentesis done. 2. Chronic obstructive pulmonary disease without exacerbation. Continue with oxygen and breathing treatment. 3. Arthritis and chronic pain. Continue with home medication. 4. Asthma. Continue with breathing treatments. 5. Hypertension. Monitor. The blood pressure has been stable. 6. Hypothyroidism. Continue with Synthroid. 7. Liver cirrhosis, probably Child-Garcia class A. 8. For now, we will continue with the same treatment. I will try to talk to the pulmonary department to see if we can offer other options or increase the amount of diuretics. Probably, also nephrology should be on board to adjust all her medications. cc: Fahad Dickey MD
[2016-09-15] MEDS: ZANAFLEX PO PRN (19:31)
[2016-09-15] MEDS ORDERED: CALMOSEPTINE OINTMENT TOP PRN (19:40)
[2016-09-15] MEDS ORDERED: MYLICON PO PRN (19:51)
[2016-09-15] MEDS: PHENERGAN PO PRN (20:28)
[2016-09-16] MEDS: ZOSYN 3.375 GM/NS 3.375 GM/50 ML IVPB IV SCH ×4 (01:58→21:01)
[2016-09-16] MEDS: ZANAFLEX PO PRN ×2 (03:46→21:01)
[2016-09-16 05:24] LABS: MANUAL DIFF NEEDED? NO
[2016-09-16] MEDS: SYNTHROID PO SCH ×2 (05:33→06:36)
[2016-09-16 05:46] LABS: BASO% 0.2 % (0.0-0.8); EOS# 0.36 X1000 (0.0-0.7); EOS% 5.5 % (0.0-10.0); HEMATOCRIT 34.5 % (37.0-47.0); HEMOGLOBIN 10.4 g/dL (12.0-16.0); LYMPH# 1.12 X1000 (1.2-3.4); LYMPH% 17.2 % (20.5-51.1); MCH 30.9 PG (27-31); MCHC 30.1 g/dL (33-37); MCV 102.4 FL (81-99); MONO% 9.2 % (1.7-9.3); MPV 11.9 FL (7.4-10.4); NEUT% 67.9 % (42.2-75.2); PLT 74 X1000 (130-400); RBC 3.37 XMIL (4.2-5.4)
[2016-09-16 07:13] LABS: AGAP 6; BUN 10 mg/dL (8-22); CHLORIDE 95 mmol/L (98-107); COSMO 284; POTASSIUM 3.3 mmol/L (3.5-5.1); SODIUM 143 mmol/L (136-145); TCO2 42 mmol/L (25-35)
[2016-09-16] MEDS ORDERED: KLOR-CON PO ONE (08:02)
[2016-09-16] MEDS: BUMEX PO SCH ×2 (08:25→21:00)
[2016-09-16] MEDS: NUCYNTA PO SCH ×2 (08:25→21:01)
[2016-09-16] MEDS: ALDACTONE PO SCH (08:25)
[2016-09-16] MEDS: DULCOLAX PR SCH (08:32)
[2016-09-16 09:16] LABS: INR 1.2; PROTIME 12.7 Seconds (9.2-11.7)
[2016-09-16] MEDS: SYMBICORT 160/4.5 MICROGM INHALER INH SCH ×2 (10:05→19:14)
[2016-09-16] MEDS: ALBUTEROL NEB INH PRN ×3 (10:05→22:10)
[2016-09-16] MEDS: ATROVENT NEB INH PRN ×3 (10:05→22:10)
[2016-09-16] MEDS ORDERED: ATIVAN IV ONE (10:38)
--- NOTE | 2016-09-16 10:51 | PROGRESS NOTE ---
DATE: 09/16/2016 SUBJECTIVE: This patient feels about the same compared with yesterday. Her is at the bedside, I have ordered a thoracentesis for today. She will receive a low dose of morphine before the procedure, I will increase also the dose of Aldactone, and I will start this patient on a low dose of furosemide. OBJECTIVE: Vital Signs: Temperature 98.2 degrees, pulse 95, respiratory rate 16, blood pressure 103/61, oxygen saturation 94% on 3 L of nasal cannula. HEENT: Normocephalic. No trauma. PERRLA. Neck: Supple. No JVD. No masses. Central trachea. Chest: Left side with decreased breath sounds at the bases. Mild rales at the base as well. At right side with decreased breath sounds globally. Abdomen: Soft, obese, she has an anterior wall hernia and previous scars from surgery. Extremities: 3 to 4+ lower extremity edema. No clubbing. No cyanosis. Neurological: The patient is alert and oriented x3. No focal deficits. LABORATORY: WBC 6.5, hemoglobin 10.4, hematocrit 34.5, platelets 74,000, sodium 143, potassium 3.3. Chloride 95, bicarbonate 42, BUN 10, creatinine 0.8, glucose 96, calcium 8. ASSESSMENT AND PLAN: 1. Massive right pleural effusion status post thoracentesis with 1.5 L of glory fluid removed; this patient still has pleural effusion. I will ask for a new thoracentesis for today. Also, I will increase the dose of Aldactone and I will put this patient on a low dose of furosemide, I will monitor the kidney function. 2. Chronic obstructive pulmonary disease without exacerbation. Continue with oxygen and breathing treatment. 3. Arthritis and chronic pain. Continue with home medication. 4. Asthma continue with breathing treatment. 5. Hypertension. Monitor. The blood pressure has been stable. 6. Liver cirrhosis. 7. Like I mentioned before, I will put this patient on a low dose of furosemide and I will increase the dose of spironolactone. cc: Fahad Dickey MD [facility]
--- NOTE | 2016-09-16 11:39 | Diag Imaging Result Doc PS360 ---
CHEST-2 VIEWS - 09/16/2016 INDICATION: POST RIGHT THORACENTESIS TECHNIQUE: COMPARISON: 09/15/2016 FINDINGS: There is significant reduction in the right pleural effusion. No pneumothorax. The left lung is well expanded and clear. Heart size is normal. IMPRESSION: No complication from the right thoracentesis. Electronically signed by Dale Guardado 09/16/2016 11:37 AM
--- NOTE | 2016-09-16 11:43 | Diag Imaging Result Doc PS360 ---
THORACENTESIS W/IMAGE GUIDANCE - 09/16/2016 INDICATION: Right pleural effusion TECHNIQUE: The risks and benefits of the procedure were discussed with the patient. All questions were answered. Written and verbal informed consent was obtained. Overlying skin was prepped and draped in sterile fashion. Anesthesia was achieved with injection of 10 cc of 1% lidocaine. COMPARISON: Chest x-ray from 09/15/2016 FINDINGS: Ultrasound scanning demonstrated a significant right pleural effusion. 2 L was drained with evacuated bottles. The catheter was withdrawn intact. The patient reported no symptoms from the procedure. IMPRESSION: Successful and uncomplicated right-sided thoracentesis. Electronically signed by Dale Guardado 09/16/2016 11:40 AM
[2016-09-16] MEDS: PHENERGAN PO PRN (21:01)
[2016-09-17] MEDS: ZOSYN 3.375 GM/NS 3.375 GM/50 ML IVPB IV SCH ×4 (01:10→21:38)
[2016-09-17] MEDS: ATROVENT NEB INH PRN (03:19)
[2016-09-17] MEDS: ALBUTEROL NEB INH PRN (03:19)
[2016-09-17] MEDS: SYNTHROID PO SCH (06:20)
[2016-09-17 06:42] LABS: AGAP 6; BUN 11 mg/dL (8-22); CALCIUM 7.8 mg/dL (8.8-10.2); CHLORIDE 93 mmol/L (98-107); COSMO 281; POTASSIUM 3.7 mmol/L (3.5-5.1); SODIUM 141 mmol/L (136-145); TCO2 42 mmol/L (25-35)
[2016-09-17] MEDS: SYMBICORT 160/4.5 MICROGM INHALER INH SCH ×2 (08:09→19:39)
[2016-09-17] MEDS ORDERED: LASIX IV SCH (09:00)
[2016-09-17] MEDS: ALDACTONE PO SCH (09:15)
[2016-09-17] MEDS: NUCYNTA PO SCH ×2 (09:15→21:38)
[2016-09-17] MEDS: BUMEX PO SCH ×2 (09:16→21:38)
[2016-09-17] MEDS: DULCOLAX PR SCH ×2 (09:16→09:19)
[2016-09-17] MEDS: ZANAFLEX PO PRN (21:38)
[2016-09-18] MEDS: ZOSYN 3.375 GM/NS 3.375 GM/50 ML IVPB IV SCH ×2 (01:25→10:39)
[2016-09-18 05:36] LABS: AGAP 7; BUN 13 mg/dL (8-22); CALCIUM 8.3 mg/dL (8.8-10.2); CHLORIDE 92 mmol/L (98-107); COSMO 285; POTASSIUM 3.3 mmol/L (3.5-5.1); SODIUM 142 mmol/L (136-145); TCO2 43 mmol/L (25-35)
[2016-09-18] MEDS: SYNTHROID PO SCH (06:17)
--- NOTE | 2016-09-18 07:09 | DISCHARGE SUMMARY ---
ADMISSION DATE: 09/10/2016 DISCHARGE DATE: 09/17/2016 CONSULTATIONS: 1. Dr. Gutiérrez with Gastroenterology. 2. Dr. Galvan with Pulmonology. PERTINENT PROCEDURES: 1. Chest x-ray showed a massive right pleural effusion and atelectasis, possibly pneumonia on the right cannot be excluded. 2. Echocardiogram showed mild mitral regurgitation, mild tricuspid regurgitation with moderate pulmonary hypertension with estimated EF greater than 70%. Grade 1 left intraventricular diastolic dysfunction. 3. Ultrasound-guided thoracentesis. I have pulled off 1.5 L of glory colored serous fluid. 4. Abdominal ultrasound showed heterogeneous and nodular liver suggesting cirrhosis. Small amount of ascites tracking around the liver. 5. Chest CT showed a large right pleural effusion with collapse of the right lung. 6. Ultrasound-guided thoracentesis 2 L was drained. 7. Final chest x-ray showed a significant reduction in the right pleural effusion. No pneumothorax. The left lung was well expanded and clear. Heart size was normal. DISCHARGE DIAGNOSES: 1. Massive right pleural effusion status post thoracentesis of 1.5 L of glory fluid removed. The patient still has pleural effusion. She underwent a 2nd pleural effusion where 2 L was removed. They did increase her Aldactone and Lasix and improved. 2. Chronic obstructive pulmonary disease without exacerbation. Continue home management. 3. Arthritis and chronic pain. Continue home medicines. 4. Asthma. Continue with current home regimen. 5. Hypertension, stable. 6. Liver cirrhosis Child-Garcia Class A. Continue with lactulose p.r.n. HOSPITAL COURSE: Briefly, Ms. Hernández is a 71-year-old female who carries a past medical history of arthritis, chronic pain, COPD on home O2 and nebulizers, hypertension , hypothyroidism, cirrhosis, morbid obesity, and thrombocytopenia secondary to liver disease. The patient reported to [facility] for increased swelling in her bilateral lower extremities that moved up to her knees into her abdomen and then the shortness of breath began. Per the report at the bedside, this has been ongoing for several months. He felt it had been going on since her last discharge back in November. She was noted to have a large right pleural effusion while at [facility] due to their lack of subspecialty with pulmonary. She was transferred to [facility]. She underwent a chest x-ray here that again showed a massive right pleural effusion. The patient was in no acute distress at the time of her admission. She deferred her thoracentesis to the morning. They were able to pull off 1.5 L of glory colored serous fluid. She had an abdominal ultrasound that showed a heterogeneous and nodular liver suggesting cirrhosis and a small amount of ascites tracking around the liver. Dr. Gutiérrez examined the patient with Gastroenterology. Dr. Davila stated she did have mild cirrhosis of the liver. Child-Garcia Class A that was unchanged from the previous year. He felt that the level of her liver cirrhosis was not the only thing causing her pleural effusions. We did bring Dr. Galvan on board who also felt that her pleural effusions are secondary to her cirrhosis as well as her sleep apnea. They discussed that she will need treatment for this as an outpatient. The patient underwent a second ultrasound-guided thoracentesis on 09/16/2016 where they were able to remove 2 L from her right side. The dosage of her Aldactone was increased along with adjustments to her Lasix. Dr. Peterson agreed that the patient is appropriate for discharge home today with these medication adjustments. VITAL SIGNS: Temperature 99 degrees, heart rate 99, respirations 20, blood pressure 127/64, and O2 98% on 3 L nasal cannula. DISCHARGE MEDICATIONS: 1. Albuterol nebulizer 2.5 mg q.6 hours p.r.n. 2. Dulcolax 10 mg p.o. p.r.n. daily. 3. Symbicort 160/4.5 mcg inhaler 1 puff inhaled b.i.d. 4. Bumetanide 1 mg p.o. b.i.d. 5. Butrans 20 mcg . 6. Lasix 20 mg p.o. daily. 7. Atrovent nebulizer 0.5 mg nebulizer q.6 hours p.r.n. 8. Lactulose 30 mL p.o. q.8 hours p.r.n. 9. Synthroid 150 mcg p.o. daily. 10. Phenergan 25 mg p.o. q.6 hours p.r.n. 11. Aldactone 50 mg p.o. daily. 12. Nucynta 50 mg p.o. b.i.d. 13. Tizanidine 4 mg p.o. q.8 hours p.r.n. DISCHARGE DIET: Regular. FOLLOW UP: The patient is being discharged home with home health and her . She will follow up with Dr. Galvan on 09/26/2016 at 10:30 in the morning and with Dr. Gutiérrez on 10/02/2016 at 9:30 in the morning. She will need to follow up with her primary care physician in 2 weeks. Patient will need to take home medications as prescribed. She can return to the ED for any worsening of symptoms. DISCHARGE TIME: 30 minutes. Dictated by MJ Ruth for Fahad Dickey MD cc: Fahad Dickey MD MTDD
[2016-09-18] MEDS: SYMBICORT 160/4.5 MICROGM INHALER INH SCH (07:28)
[2016-09-18] MEDS ORDERED: KLOR-CON PO ONE (08:18)
[2016-09-18] MEDS ORDERED: LASIX PO SCH (09:00)
[2016-09-18] MEDS: NUCYNTA PO SCH (10:38)
[2016-09-18] MEDS: BUMEX PO SCH (10:39)
[2016-09-18] MEDS: ALDACTONE PO SCH (10:39)
[2016-09-18] MEDS: DULCOLAX PR SCH (10:40)
[2016-09-18 11:54] VITALS: BP 149/71
--- NOTE | 2016-09-19 10:15 | DISCHARGE SUMMARY ---
ADMISSION DATE: 09/10/2016 DISCHARGE DATE: 09/17/2016 SUBJECTIVE: Ms. Traci Hernández a 71-year-old female with no new complaints for today. Please see Sherie Hurt's discharge dictation that was performed yesterday for full discharge summary. OBJECTIVE: Vital Signs: On discharge, temperature 98.1 degrees, heart rate 106, respiratory rate 20, blood pressure 149/71, O2 saturation 97% on 3 L nasal cannula. General: No new complaints. No acute distress. HEENT: Atraumatic, normocephalic. Pupils equal, round, reactive to light. Pulmonary: Decreased breath sounds in the bases. Mild rales at the base, decreased in the right. Cardiovascular: Regular rate and rhythm. No rubs, gallops, or murmurs. Abdomen: Soft, nontender. Anterior wall hernia with scars. No change from that. Extremities: There is 3 to 4+ lower extremity edema. Neurologic A and O x3. Laboratory Data: BMP: Sodium 142, potassium 3.3, BUN 13, creatinine 0.9, glucose 139, calcium 8.3. No new imaging. ASSESSMENT AND PLAN: 1. Massive right pleural effusion, status post thoracentesis. Had most recently 2 L drained on the . 2. Chronic obstructive pulmonary disease, no exacerbation. Continue nasal cannula respiratory treatments. 3. Arthritis and chronic pain. Continue home medications. 4. Asthma. Continue respiratory treatments. 5. Hypertension, stable. 6. Liver cirrhosis. 7. Discharge disposition. The patient has been discharged today with [facility]. No new changes from Sherie Hurt's dictation. Dictated by MJ Hdez for Fahad Dickey MD cc: MJ Hdez MD
== END 2016-09-18 15:20 ==
LOC: SUATTDRO 13:33 → DIRADM 13:33 → 3S 14:41
PROVIDERS: ADMIT Internal Medicine; ATTEND Internal Medicine

== ENCOUNTER 2016-09-26 14:49 | Inpatient (IN) ==
[2016-09-26] MEDS ORDERED: SOLU-MEDROL IV ONE (14:55)
[2016-09-26] MEDS ORDERED: DUONEB (A & A) INH ONE (14:55)
[2016-09-26 15:24] LABS: MANUAL DIFF NEEDED? NO
[2016-09-26 15:26] LABS: BASO% 0.2 % (0.0-0.8); EOS# 0.29 X1000 (0.0-0.7); EOS% 2.8 % (0.0-10.0); HEMATOCRIT 38.7 % (37.0-47.0); HEMOGLOBIN 12.1 g/dL (12.0-16.0); IMM GRAN# 0.02 X1000 (0.0-0.04); IMM GRAN% 0.2 % (0.0-0.5); LYMPH# 1.03 X1000 (1.2-3.4); LYMPH% 9.8 % (20.5-51.1); MCH 31.4 PG (27-31); MCHC 31.3 g/dL (33-37); MCV 100.5 FL (81-99); MONO% 8.6 % (1.7-9.3); MPV 11.6 FL (7.4-10.4); NEUT% 78.4 % (42.2-75.2); PLT 128 X1000 (130-400); RBC 3.85 XMIL (4.2-5.4)
[2016-09-26 15:42] LABS: INR 1.14 (0.86-1.15); PROTIME 14.9 Seconds (12.1-15.5)
[2016-09-26 15:43] LABS: PTT PL 25.8 Seconds (22.6-43.9)
[2016-09-26 15:44] LABS: AMYLASE 51 U/L (20-200); LIPASE 62 U/L (13-60)
[2016-09-26 15:47] LABS: AGAP 7; ALBUMIN 3.4 g/dL (3.5-5.0); ALKALINE PHOSPHATASE 144 U/L (32-104); BUN 22 mg/dL (8-22); CALCIUM 9.2 mg/dL (8.8-10.2); CHLORIDE 91 mmol/L (98-107); CK PROFILE 61 U/L (24-173); COSMO 281; GOT 36 U/L (10-30); GPT 32 U/L (10-36); MAGNESIUM 2.1 mg/dL (1.5-2.7); POTASSIUM 3.5 mmol/L (3.5-5.1); SODIUM 137 mmol/L (136-145); TCO2 40 mmol/L (25-35); TOTAL PROTEIN 7.1 g/dL (6.3-8.3)
[2016-09-26 15:50] LABS: BE 22.3 mmoll (-3.0-3.0); BLOOD TYPE ARTERIAL; DRAW SITE R RADIAL; METHB 0.7 % (0.0-1.5); O2(CT) 14.9 mL/dL (15.0-23.0); PO2(98.6) 93 mmHg (60-100); SAMPLE BLOOD; SAO2 98.8 % (95.0-100.0); pH(98.6) 7.47 (7.35-7.45)
[2016-09-26 15:53] LABS: ALLEN TEST YES; MODALITY CANNULA; PCO2(98.6) 68 mmHg (35-45)
--- NOTE | 2016-09-26 16:42 | PROVIDER DOCUMENTATION ---
This chart was entered by Robin Leo Scribe, acting as scribe for Wale Mayo MD. HPI-Respiratory General - General Chief Complaint: Shortness of Breath Stated Complaint: SOB Time Seen by Provider: 09/26/16 14:55 Source: patient, EMS, correction records Unable to obtain history due to:: altered Allergies/Adverse Reactions: Patient Allergies Allergy/AdvReac Type Severity Reaction Status Date / Time iodine Allergy Severe rash, red Verified 03/03/13 09:36 face,itching Iodinated Contrast Media - Allergy Unknown Verified 12/14/15 09:52 Oral and Home Medications: Home Medication List Medication Instructions Recorded Confirmed Last Taken Type Levothyroxine [Synthroid] 150 microgm PO DAILY 03/03/13 09/26/16 09/09/16 09:00 History Tizanidine HCl 4 mg PO Q8H PRN 03/03/13 09/26/16 09/09/16 19:00 History Budesonide/Formoterol Fumarate 1 puff INH BID 12/11/15 09/26/16 09/09/16 09:00 History [Symbicort 160-4.5 Mcg Inhaler] Ipratropium [place] Neb [Atrovent 0.5 mg NEB Q6H PRN PRN 12/11/15 09/26/1609/09 09:00 History Neb] Tapentadol HCl [Nucynta] 50 mg PO BID 12/11/15 09/26/16 09/09/16 21:00 History Albuterol [Albuterol Neb] 2.5 mg NEB Q6H PRN PRN 09/10/16 09/26/16 09/09/16 21: 00 History Bumetanide 1 mg PO BID 09/10/16 09/26/16 09/09/16 21:00 History Bisacodyl [Dulcolax] 10 mg VT DAILY #60 supp 09/17/16 09/26/16 Unknown Rx Buprenorphine [Butrans] 20 mcg TD WE #2 patch.tdwk 09/17/16 09/26/16 Unknown Rx Furosemide [Lasix] 20 mg PO DAILY #90 tablet 09/17/16 09/26/16 Unknown Rx Spironolactone [Aldactone] 50 mg PO DAILY #60 tablet 09/17/16 09/26/16 Unknown Rx Lactulose 30 ml PO Q12H #1 09/18/16 09/26/16 09/03/16 21:00 Rx Simethicone Chew [Mylicon] 80 mg PO 4XDAY PRN PRN #60 tablet 09/18/16 09/26/16 Unknown Rx - History of Present Illness-Resp Nature of Presenting Problem: patient is a 71 yo F that presents to the ER via EMS after having confusion and increased shortness of breath. She had an abnormal chest xray. patient is sent her for evaluation. No fever/chills or n/v/d. Severity in ED: reports: moderate, severe Onset/Duration: reports: unsure Timing: reports: still present, constant Context: denies: recent chemotherapy, out of meds, sports/exercise, aspiration/ choking Cough Quality/Degree: reports: moderate, dry cough Current Respiratory Medication Therapy: Initiated see nurses note Modifying Factors: worse with: exertion, coughing Associated Symptoms: reports: cough, shortness of breath, short of breath. denies: fever/chills, nasal congestion, nasal drainage Similar Symptoms Previously?: Yes Recently seen or treated by another doctor?: Yes Review of Systems - Adult - REVIEW OF SYSTEMS - ADULT ROS:: limited per condition Constitutional: denies: chills, fever Eyes: reports: no symptoms reported Ears, Nose, Mouth & Throat: reports: no symptoms reported Cardiovascular: denies: chest pain, orthopnea, palpitations, syncope Respiratory: reports: cough, shortness of breath. denies: wheezing Gastrointestinal: denies: abdominal pain, nausea, vomiting Genitourinary: reports: no symptoms reported Musculoskeletal: denies: back pain, joint pain, neck pain Integumentary: reports: no symptoms reported Neurological: reports: other (confusion). denies: dizziness/vertigo, headache/ migraines Psychiatric: reports: no symptoms reported Endocrine: reports: no symptoms reported Hematologic/Lymphatic: reports: no symptoms reported Allergic/Immunologic: reports: no symptoms reported All Other Systems: Reviewed and Negative Past History - Adult - PAST MEDICAL HISTORY-ADULT Review of Records: reports: Old Records Reviewed, Nursing Assessment Review, Medications Reviewed Cardiovascular: reports: HTN Respiratory: reports: asthma, COPD Gastrointestinal: reports: liver disease (cirrhosis) - PRIOR SURGERIES/PROCEDURES Surgical/Procedure History: reports: cholecystectomy - IMMUNIZATION STATUS Childhood Immunizations: See Nurse Assessment Flu Vaccine: See Nurse Assessment - FAMILY HISTORY Family History: reviewed, not pertinent - SOCIAL HISTORY Smoking: quit greater than 1 year, cigarettes Living Situation: care facility Physical Exam-General - PHYSICAL EXAM-ADULT Initial Vital Signs Reviewed: Yes - CONSTITUTIONAL General Appearance: alert, mild distress, moderate distress, obese - EYES Eyes: PERRL/EOMI, pink conjunctivae - HEAD, EARS, NOSE, MOUTH & THROAT HENMT: normocephalic/atraumatic, moist mucous membranes, normal ENT inspection - NECK Neck: full range of motion, normal inspection - RESPIRATORY Respiratory: no respiratory distress, no accessory muscle use, decreased breath sounds (on right side). negative: respiratory distress - CARDIOVASCULAR Cardiovascular: regular rate, rhythm, no edema - GASTROINTESTINAL (ABDOMEN) Abdominal Exam: normal bowel sounds, non tender, soft, hernia (noted) - MUSCULOSKELETAL Extremity: no calf tenderness, normal capillary refill, pedal edema (trace) - SKIN Integumentary: normal color, warm/dry Progress - PLAN OF CARE/RESULTS Progress/Plan/Lab Results: Vital Signs - 8 hr 09/26/16 14:54 Pulse Rate 108 H Respiratory Rate 22 Blood Pressure 151/100 O2 Sat by Pulse Oximetry 98 Laboratory Results - last 24 hr 09/26/16 09/26/16 09/26/16 15:10 15:10 15:10 WBC 10.48 RBC 3.85 L Hgb 12.1 Hct 38.7 MCV 100.5 H MCH 31.4 H MCHC 31.3 L RDW Std Deviation 16.1 H Plt Count 128 L MPV 11.6 H Immature Gran % (Auto) 0.2 Neut % (Auto) 78.4 H Lymph % (Auto) 9.8 L [place] % (Auto) 8.6 Eos % (Auto) 2.8 Baso % (Auto) 0.2 Immature Gran # (Auto) 0.02 Neut # (Auto) 8.22 H Lymph # (Auto) 1.03 L [place] # (Auto) 0.90 H Eos # (Auto) 0.29 Baso # (Auto) 0.02 PT INR APTT (Factor Assay) D-Dimer Specimen Type Sample Site pH pCO2 pO2 HCO3 Base Excess Oxyhemoglobin ABG O2 Sat (Calculated) ABG O2 Saturation ABG Carboxyhemoglobin ABG Methemoglobin Gaurav Test A-a O2 Difference Total Hemoglobin Lactate Liter Flow Blood Gas Modality FiO2 % Sodium 137 Potassium 3.5 Chloride 91 L Carbon Dioxide 40 H Anion Gap 7 BUN 22 Creatinine 0.9 Estimated GFR/1.73 m2 > 60 BUN/Creatinine Ratio 24 Glucose 174 H Calculated Osmolality 281 Calcium 9.2 Magnesium 2.1 Total Bilirubin 4.50 H AST 36 H ALT 32 Alkaline Phosphatase 144 H Creatine Kinase 61 Troponin T [id number]-K-Skxafxfihxy Pept Total Protein 7.1 Albumin 3.4 L Globulin 4.0 Albumin/Globulin Ratio 1.0 Amylase 51 Lipase 62 H 09/26/16 09/26/16 09/26/16 15:10 15:10 15:10 WBC RBC Hgb Hct MCV MCH MCHC RDW Std Deviation Plt Count MPV Immature Gran % (Auto) Neut % (Auto) Lymph % (Auto) [place] % (Auto) Eos % (Auto) Baso % (Auto) Immature Gran # (Auto) Neut # (Auto) Lymph # (Auto) [place] # (Auto) Eos # (Auto) Baso # (Auto) PT 14.9 INR 1.14 APTT (Factor Assay) 25.8 D-Dimer 7.41 H Specimen Type Sample Site pH pCO2 pO2 HCO3 Base Excess Oxyhemoglobin ABG O2 Sat (Calculated) ABG O2 Saturation ABG Carboxyhemoglobin ABG Methemoglobin Gaurav Test A-a O2 Difference Total Hemoglobin Lactate Liter Flow Blood Gas Modality FiO2 % Sodium Potassium Chloride Carbon Dioxide Anion Gap BUN Creatinine Estimated GFR/1.73 m2 BUN/Creatinine Ratio Glucose Calculated Osmolality Calcium Magnesium Total Bilirubin AST ALT Alkaline Phosphatase Creatine Kinase Troponin T < 0.010 Izg-J-Snehtiixlhy Pept 375 H Total Protein Albumin Globulin Albumin/Globulin Ratio Amylase Lipase 09/26/16 15:30 WBC RBC Hgb Hct MCV MCH MCHC RDW Std Deviation Plt Count MPV Immature Gran % (Auto) Neut % (Auto) Lymph % (Auto) [place] % (Auto) Eos % (Auto) Baso % (Auto) Immature Gran # (Auto) Neut # (Auto) Lymph # (Auto) [place] # (Auto) Eos # (Auto) Baso # (Auto) PT INR APTT (Factor Assay) D-Dimer Specimen Type ARTERIAL Sample Site R RADIAL pH 7.47 H pCO2 68 H* pO2 93 HCO3 42.3 H Base Excess 22.3 H Oxyhemoglobin 95.8 ABG O2 Sat (Calculated) 14.9 L ABG O2 Saturation 98.8 ABG Carboxyhemoglobin 2.30 ABG Methemoglobin 0.7 Gaurav Test YES A-a O2 Difference 107.0 Total Hemoglobin 11.0 L Lactate 1.60 Liter Flow 5.0 Blood Gas Modality CAN[place]ULA FiO2 % 40.0 Sodium Potassium Chloride Carbon Dioxide Anion Gap BUN Creatinine Estimated GFR/1.73 m2 BUN/Creatinine Ratio Glucose Calculated Osmolality Calcium Magnesium Total Bilirubin AST ALT Alkaline Phosphatase Creatine Kinase Troponin T Trg-R-Tbuifexdjmt Pept Total Protein Albumin Globulin Albumin/Globulin Ratio Amylase Lipase Orders Category Date Time Status Cardiac Monitoring DIRECTED Care 09/26/16 14:55 Active Oxygen Therapy- ED Nursing DIRECTED Care 09/26/16 14:55 Active Saline Loc NOW Care 09/26/16 14:55 Active FLAT/UPRIGHT ABD/1 VIEW CHEST [RAD] Stat Exams 09/26/16 14:55 Taken ABG [RESP] Routine Lab 09/26/16 15:30 Completed AMMONIA [CHEM] Stat Lab 09/26/16 16:30 Received AMYLASE [CHEM] Stat Lab 09/26/16 15:10 Completed BLOOD CULTURE [BLDCUL] Stat Lab 09/26/16 14:55 Ordered CBC WITH ELECTRONIC DIFF [HEME] Stat Lab 09/26/16 15:10 Completed CK PROFILE [SP CHEM] Stat Lab 09/26/16 15:10 Completed COMPREHENSIVE METABOLIC PANEL [CHEM] Stat Lab 09/26/16 15:10 Completed D-DIMER PL [COAG] Routine Lab 09/26/16 15:10 Completed LIPASE [CHEM] Stat Lab 09/26/16 15:10 Completed MAGNESIUM [CHEM] Stat Lab 09/26/16 15:10 Completed PRO B-NATRIURETIC PEPTIDE Stat Lab 09/26/16 15:10 Completed [address]IME WITH INR PL [COAG] Routine Lab 09/26/16 15:[address] [COAG] Routine Lab 09/26/16 15:10 Completed TROPONIN T Stat Lab 09/26/16 15:[address] W/POSS RFLX CULT [URINALYSIS] Stat Lab 09/26/16 16:20 Received Albuterol 2.5MG/Ipratrop 0.5MG [Duoneb (A & A)] Med 09/26/16 14:55 Discontinued 3 ml INH NOW ONE Methylprednisolone Sod Succ [Solu-Medrol] Med 09/26/16 14:55 Discontinued 125 mg IV NOW ONE Aerosol Treatments Routine Oth 09/26/16 14:57 Active Aerosol Treatments Stat Oth 09/26/16 14:57 Active EKG [EKG] Stat Ther 09/26/16 14:55 Ordered Result Diagrams: 09/26/16 15:10 09/26/16 15:10 - EKG 1 Time of EKG reading by physician:: 15:33 EKG Read and Signed by:: Wale Mayo EKG Interpretation (*Must complete 3 of following elements*): Abnormal Rate: 106 Rhythm: Sinus Tachycardia [place]: normal QRS: normal VT Interval: normal ST Wave: normal - CONSULTS/PCP/HOSPITALIST Notification #1 *Consult/PCP/Hospitalist*: Dr. Moreno Time Discussed: 16:23 Reason/Comments: Will possible arrange to admit to [facility] Consult Disposition: Admit Departure - Departure Date of Disposition Decision: 09/26/16 Time of Disposition Decision: 16:24 DIAGNOSIS: Pleural effusion, right, SOB (shortness of breath) Disposition: ADMITTED INPATIENT 09 Certified Medical Emergency: Emergent Condition: Stable Referrals and Follow-Ups: None,PCP [Primary Care Provider] - - Critical Care Note This patient required my direct & personal management of CC.: No This chart was documented by the indicated scribe, (Robin Leo, Scribe) and accurately reflects the services I performed and decisions made by me, Wale Mayo MD, as attested by the provider's signature.
[2016-09-26 16:48] LABS: BILIRUBIN URINE 1+ (NEGATIVE); BLOOD URINE 3+ (NEGATIVE); CLARITY VERY CLOUDY (CLEAR); COLOR AMBER; GLUCOSE URINE NEGATIVE (NEGATIVE); LEUKOCYTES URINE 2+ (NEGATIVE); NITRITE URINE POSITIVE (NEGATIVE); PH URINE 6.5; PROTEIN URINE 1+(30 mg/dL) mg/dL (NEGATIVE); SP GRAVITY URINE 1.015
[2016-09-26 17:15] LABS: URINE RBC 20-40 /HPF (<10); URINE WBC 20-40 /HPF (<10)
[2016-09-26 17:16] LABS: URINE CAST NONE SEEN /LPF; URINE CRYSTAL URIC ACID PRESENT /HPF; URINE CULTURE PL NEEDED? YES; URINE EPITHELIAL CELLS <10 /HPF (<10); URINE SOURCE CATH
[2016-09-26 17:22] LABS: UROBILINOGEN URINE 4+(12 mg/dL)
--- NOTE | 2016-09-26 17:22 | EKG Report ---
Test Performed on : 09/26/2016 3:33:49 PM Test Reason : Chest Pain Blood Pressure : / mmHG Vent. Rate : 106 BPM Atrial Rate : 106 BPM P-R Int : 136 ms QRS Dur : 074 ms QT Int : 360 ms P-R-T Axes : 072 040 056 degrees QTc Int : 478 ms Sinus tachycardia. Otherwise normal ECG When compared with ECG of 10-SEP-2016 16:09, No significant change was found Unconfirmed Result
--- NOTE | 2016-09-26 17:39 | Diag Imaging Result Doc PS360 ---
EXAM: FLAT/UPRIGHT ABD/1 VIEW CHEST HISTORY: SOB adb Abd pain TECHNIQUE: Flat and upright with chest, five views COMPARISON: 09/16/2016 FINDINGS: There is opacification of the right hemithorax. No free air beneath the diaphragm. There are multiple surgical clips in the abdomen. No bowel obstruction. Very little other information is obtained due to the patient's body habitus. IMPRESSION: Development of opacification of the right hemithorax which may be due to a combination of a pleural effusion, atelectasis, and infiltrates. Electronically signed by Coleman Gonzalez 09/26/2016 5:37 PM
--- NOTE | 2016-09-26 19:09 | HISTORY AND PHYSICAL ---
PRIMARY CARE PHYSICIAN: Elías Oh MD.; computer instructor is Evi Gutiérrez MD; medical lab specialist is Sarita Galvan MD. CHIEF COMPLAINT: Shortness of breath. HISTORY OF PRESENT ILLNESS: This is a 71-year-old, obese female with a history of morbid obesity, COPD on home O2, hypertension, remote jejunal ileal bypass for weight loss and Child-Garcia Class cirrhosis of the liver. She presented to the emergency room from a rehab facility with increasing shortness of breath. Lower extremity edema and confusion over the last 48 hours. She has chronic lower extremity edema, although over the last 4-6 weeks, the states that despite treatment, nothing has helped. In the emergency room, the patient underwent a chest x-ray that showed a massive right pleural effusion. Of note, she is status post thoracentesis on September 16, having greater than 2 L drained at that time. The patient does not complain of any shortness of breath although she is confused and she is in mild respiratory distress. The states that "she has been breathing this way for the last 4 days." She is noted to have O2 saturations of 96- 98% on 5 L nasal cannula. The patient is an established patient of Dr. Galvan, and in fact, plans were for her to have a sleep study for COPD, as well as sleep apnea. In fact, she was to have a sleep study after discharge from rehab in the future. At the time of the interview, the patient is lethargic, in mild respiratory distress and she does not answer any questions. At intervals, she will smile or laugh out. The states she has been this way. It has been increasing over the last 24 hours. Due to lack of pulmonary care, she will be admitted to [facility] ICU with Pulmonary and Gastroenterology consult. PAST MEDICAL HISTORY: Morbid obesity, COPD on home O2, sleep apnea, hypertension, hypothyroid. Child-Garcia Class cirrhosis of the liver. PAST SURGICAL HISTORY: x2. Right rotator cuff surgery, cholecystectomy. Remote jejunoileal bypass for weight loss. Thyroidectomy. SOCIAL HISTORY: She lives with her who is at the bedside. She quit smoking greater than 3 years ago. She denies alcohol or illicit drug use. HOME MEDICATIONS: A list will be obtained. REVIEW OF SYSTEMS: Unable to obtain from the patient at present. PHYSICAL EXAMINATION: GENERAL: This is a morbidly obese, ill-appearing, 71-year-old female who is lying in the bed in mild distress. VITAL SIGNS: Blood pressure is 151/100, with a heart rate of 101. Respirations are 22, O2 saturations are 97-98% on 5 L nasal cannula. CARDIOVASCULAR: Regular rate and rhythm. S1 and S2 are appreciated. No murmurs, gallops or rubs noted. PULMONARY: She has decreased breath sounds on the right throughout the entire right lung and to the left lower lung. She does have a slight increased work of breathing. Chest does rise and fall symmetrically. GASTROINTESTINAL: Abdomen is large. She does not seem to be tender to palpation. It is soft with bowel sounds noted. MUSCULOSKELETAL: Good range of motion of joints. EXTREMITIES: She has 4+ pitting edema noted on bilateral lower extremities from just above the mid thigh down, as well as pitting edema to her bilateral arms. NEUROLOGIC: She does withdraw from pain. She does smile to verbal conversation. DIAGNOSTICS: WBC is 10.4 with a hemoglobin of 12.1, hematocrit 38.7, and platelets of 128. D- dimer is 7.4. Sodium is 137, potassium 3.5, chloride 91, CO2 of 40, with a BUN of 22, creatinine 0.9, and glucose of 174. Her total bilirubin is 4.5 with AST of 36, ALT of 32, alkaline phosphatase of 144, ammonia of 145 with a lipase of 62. Chest x-ray reveals opacification of the right hemithorax per radiology read. ASSESSMENT AND PLAN: 1. Massive right pleural effusion, recurring. We will transfer the patient to [facility] ICU. Consult Dr. Galvan. Continue her home O2. We will keep the head of the bed elevated no lower than 30 degrees. 2. Chronic obstructive pulmonary disease. We will continue her home O2. Will continue DuoNeb q.4 to q.2 p.r.n. 3. Asthma. We will continue with her breathing treatments. 4. Hypertension. We will monitor blood pressure. 5. Hypothyroid. We will check her TSH and continue Synthroid. 6. Liver cirrhosis, Child's Class A. 7. Elevated ammonia. We will continue with lactulose. We will have the patient n.p.o. at present. Further treatments pending hospital course. Dictated by MJ Arias for Hansel Moreno MD cc: MJ Arias MD
[2016-09-26] MEDS ORDERED: DUONEB (A & A) INH PRN (19:52)
[2016-09-26] MEDS ORDERED: MISC. PHARMACY COMMUNICATION SCH (19:52)
[2016-09-26] MEDS: LACTULOSE MISC ONE ×2 (21:38→21:55)
[2016-09-26] MEDS: DUONEB (A & A) INH SCH ×2 (23:10→23:13)
[2016-09-27] MEDS: DUONEB (A & A) INH SCH ×6 (03:40→23:10)
[2016-09-27 07:46] LABS: HEMATOCRIT 37.4 % (37.0-47.0); HEMOGLOBIN 11.6 g/dL (12.0-16.0); MCH 31.2 PG (27-31); MCV 100.5 FL (81-99); MPV 11.5 FL (7.4-10.4); RBC 3.72 XMIL (4.2-5.4)
[2016-09-27 08:22] LABS: AGAP 10; ALBUMIN 3.5 g/dL (3.5-5.0); ALKALINE PHOSPHATASE 134 U/L (32-104); BUN 22 mg/dL (8-22); CALCIUM 9.2 mg/dL (8.8-10.2); CHLORIDE 89 mmol/L (98-107); COSMO 285; GOT 29 U/L (10-30); GPT 31 U/L (10-36); POTASSIUM 4.1 mmol/L (3.5-5.1); SODIUM 140 mmol/L (136-145); TCO2 41 mmol/L (25-35); TOTAL BILIRUBIN 3.63 mg/dL (0.20-1.00); TOTAL PROTEIN 7.2 g/dL (6.3-8.3)
--- NOTE | 2016-09-27 09:47 | Diag Imaging Result Doc PS360 ---
EXAM: CHEST-1 VIEW HISTORY: SOB TECHNIQUE: Portable upright AP COMPARISON: 09/26/2016 FINDINGS: There continues to be complete opacification of the right hemithorax. The left lung is well expanded. There are no infiltrates in the left lung. No left pleural effusion identified. IMPRESSION: Persistent opacification of the right hemithorax.. Electronically signed by Coleman Gonzalez 09/27/2016 9:44 AM
--- NOTE | 2016-09-27 12:14 | CONSULTATION ---
DATE OF CONSULTATION: 09/27/2016 REFERRING PHYSICIAN: Hansel Moreno MD CHIEF COMPLAINT: Shortness of breath. 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 Diagnostics reveal a large right pleural effusion that is recurring. She recently was in the hospital and had 2 L drained with thoracentesis. Family states that she has been regressing over the last couple of days. Patient is currently confused and unable to answer any questions. REVIEW OF SYSTEMS: Unable to obtain. PAST MEDICAL HISTORY: As mentioned in HPI, otherwise noncontributory. PAST SURGICAL HISTORY: x2, right rotator cuff surgery cholecystectomy , remotely jejunal bypass for weight loss and thyroidectomy. SOCIAL HISTORY: The patient lives with her . She stopped smoking 3 years ago. Denies use of alcohol or illicit drugs. FAMILY HISTORY: Noncontributory. ACTIVE MEDICATIONS: DuoNeb. PHYSICAL EXAMINATION: Vital Signs: Temperature 97.5 degrees, heart rate 109, respiratory rate 18, blood pressure 128/73, oxygen saturation 95%. General: Awake, confused. Mild respiratory distress noted. HEENT: Normocephalic and atraumatic. Cardiovascular: Regular rate and rhythm. S1-S2 present. Chest: Reduced entry. Diminished bilaterally. Abdomen: Obese. Bowel sounds present. Extremities: Plus 4 pedal edema in bilateral lower extremities. Neuro: Does makes eye contact and smile without answering questions and does withdraw from pain. LABS AND INVESTIGATIONS: WBC 10.48, RBC 3.85, hemoglobin 12.1, hematocrit 38.7 , platelet count 128,000. Sodium 137, potassium 3.5, chloride 91, CO2 40, anion gap 7, BUN 22, creatinine 0.9, glucose 174. Blood gas reveals a pH of 7.47, pCO2 of 68, PO2 of 93, HCO3 of 42.3, base excess 22.3, saturated oxygen 99. ASSESSMENT AND PLAN: This is a 71-year-old, obese female with a past medical history as mentioned in the History of Present Illness, who presented to the hospital with shortness of breath and confusion. She was admitted with a massive right pleural effusion that is recurring, also chronic obstructive pulmonary disease. On multiple thoracentesis, the fluid is transudative and multifactorial, according to Dr. Gutiérrez from GI, he doubts cirrhosis as an etiology given it is an early stage per him. Give the recurrence and inconvenience, will consider surgical options/pleurodesis. Will consult surgery. She is receiving inhaled bronchodilators, home medications for asthma, hypertension and hypothyroidism. Lactulose for elevated ammonia level. She is being held NPO and further recommendations pending diagnostic studies. Thank for the courtesy of this consult. Dictated by MJ Koehler for Sarita Galvan MD cc: MJ Koehler MD [facility]
[2016-09-27] MEDS ORDERED: CALMOSEPTINE OINTMENT TOP ONE (12:54)
--- NOTE | 2016-09-27 16:22 | CONSULTATION ---
DATE OF CONSULTATION: 09/27/2016 REASON FOR EVALUATION: Severe shortness of breath and history of right-sided pleural effusion. HISTORY OF PRESENT ILLNESS: This is a patient who is known to me from previous hospitalization. She was hospitalized in this hospital in the middle of August with similar problems with shortness of breath. At that time, I had extensive evaluation done on her. She was treated and was sent to rehab. She had this pleural effusion removed twice by thoracentesis, total about 3.5 L were removed by the radiologist. According to her , she has been becoming drowsy and short of breath since Friday and it gradually worsened. Eventually the patient was transferred to the emergency room where she was found to be having a large right-sided 2 repletion as before. In November 1915 the patient was admitted with similar problems. At that time , a GI consultation was applied. The patient had a Child class A cirrhosis of the liver. It is probably cryptogenic cirrhosis or probably secondary to fatty metamorphosis eventually becoming cirrhosis. But cirrhosis was not a major issue at that time. During last hospitalization also it was not a major issue, although her admitting ammonia level was elevated, with lactulose the ammonia level came back. This patient is in chronic respiratory alkalosis. When she becomes worse with pleural effusion her carbon dioxide is going quite high and every time she came to the hospital her CO2 level on blood gases was around 68-70. She has chronic respiratory alkalosis with compensated acidosis that results in poor the circulation and possibly worsening of her general condition with ammonia accumulation in the blood. PAST MEDICAL HISTORY: 1. Morbid obesity. 2. Chronic arthritis involving most of the joints. 3. Severe advanced chronic pulmonary disease with cor pulmonale and right heart failure. She is on home oxygen and inhalers 4. Hypertension. 5. Hypothyroidism. 6. 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 7. Obstructive sleep apnea. 8. Child class A cirrhosis of the liver secondary to possibly fatty metamorphosis of the liver due to #1 obesity, #2 jejunoileal bypass surgery in the remote past. PAST SURGICAL HISTORY: 1. C-sections x2. 2. Right shoulder surgery for rotator cuff. 3. Recent cholecystectomy. 4. Remote jejunoileal bypass for weight control. 5. Tubal ligation. 6. Partial thyroidectomy. SOCIAL HISTORY: The patient lives with her . Currently she is in the rehab facility. She used to smoke and 4 years ago quit smoking. She denied any alcohol or illicit drug use. FAMILY HISTORY: There is history of arthritis, asthma, breast cancer, diabetes mellitus, hypertension, and COPD in the family. Her mother also had these leg cramps as well as her brother. REVIEW OF SYSTEMS: Patient said that she has not been eating anything for a couple of days and she is quite hungry but unfortunately she is n.p.o. for Dr. Napoles's evaluation to put a chest tube in. She has no significant abdominal pain but there is more swelling of the abdomen than before. She has chronic constipation but there is no blood in stool, no nausea or vomiting. At the extremities edema has gone up. She has chronic venous stasis of both lower extremities. PHYSICAL EXAMINATION: General: The patient is quite drowsy. Vital signs: The pulse is 109 per minute, temperature is 98.2 degrees, respiratory rate is 21, blood pressure is 129/75. She looks more edematous than before with more pedal edema and some anterior abdominal wall edema with protuberance of the abdomen. There might be ascites present, probably to a smaller extent. She has enlarged veins in both sides of the abdomen. Neck: Supple. There is no thyromegaly. She is quite short of breath, on oxygen. Lungs: Revealed a dullness on the right side and hyper- resonance on the left side with crackles in both bases, much more on the right side. Abdomen: Very protuberant. I could not feel liver or spleen. Extremities: As before. Some edema present with chronic venous stasis, with pigmentation. LAB DATA: The hemoglobin is 12.1. At the time of discharge 04/05/2018 the hemoglobin was 10.4, hematocrit 34.5. Currently the hemoglobin 12.1 and hematocrit 38.7, the WBC count is 10.48. The platelet count is better this time at 128,000, and today it is 138,000. The ProTime is 14.9, INR is 1.14. The pH on blood gas is 7.47, with a CO2 of 68. Sodium 137, potassium 3.5, chloride 91. His bicarb is 40, at the time of previous hospitalization it remained around 40. The BUN is 22, creatinine is 0.9. Glucose is 174, calcium is 9.2, magnesium 2.1. Total bilirubin is 4.50. AST is 36, ALT is 32, alkaline phosphatase 144. Ammonia level is 145. ProBNP is 375. Total protein is 7.1 with albumin of 3.4. Amylase is 51, lipase is 62. TSH is 0.46. Urine is very cloudy with urine protein of 1+, and urine blood of 3+, nitrite 1+, 4+ . Urine microscopic 20-40, the RBCs and WBCs 20-40. Urine also shows uric acid crystals and 3+ bacteria. PROBLEM LIST: 1. Acute problem with large right-sided pleural effusion. 2. Chronic obstructive pulmonary disease with cor pulmonale with right heart failure. 3. Hepatic venous congestion secondary to #1 and #2. 4. Mostly unconjugated hyperbilirubinemia secondary to hepatic venous congestion. 5. Child class A cirrhosis of the liver, probably becoming worse now to Child class B. RECOMMENDATIONS: Her basic problem is her COPD and cor pulmonale. Her liver failure and increased ammonia level is secondary to two factors, one is cor pulmonale, the other one is cirrhosis of the liver. Her cirrhosis of the liver will become worse with increasing worsening of her right-sided failure and hepatic congestion. The reversal of the process could start with removal of the fluid and increasing better lung function. My involvement of management of cirrhosis of the liver is very little at this point. She is already on lactulose, she should be continued on that. GI will stand by. Call me if needed. I discussed the patient's situation with the patient's and also with the patient. cc: MD Fahad Soriano MD [facility]
--- NOTE | 2016-09-27 18:12 | PROGRESS NOTE ---
DATE: 09/27/2016 SUBJECTIVE: This patient is not complaining of respiratory distress at this moment. She is hungry and she has been held n.p.o. I do not think they are going to be any kind of procedure done today, so I will start this patient on a diet and I will put this patient n.p.o. after midnight just in case tomorrow morning she will have a thoracentesis done or thoracic tube placement. Her is at the bedside. All their questions were answered. I evaluated this patient and she is answering all my questions but as per the , she is a little bit confused. OBJECTIVE: Vital Signs: Temperature 97.4, pulse 113. Respiratory rate 16, blood pressure 148/88, oxygen saturation 96 on 4 L of nasal cannula. HEENT: Head normocephalic. No trauma. PERRLA. Neck: Supple. No JVD. No masses. Central trachea. Chest: Decreased breath sounds at the level of the right lung, left lower lung with mild rales at the base. Abdomen: Soft, obese. She has a ventral hernia. Positive bowel sounds. Extremities: 3 to 4+ pitting edema at the level of the lower extremities. Neurological: The patient is alert and oriented x3, but she is on and off confused. She moved all 4 extremities. LABORATORY: WBC 11.1, hemoglobin 11.6, hematocrit 37.4, platelets 138. Sodium 140, potassium 4.1, chloride 89, bicarbonate 41, BUN 22, creatinine 0.9, glucose 140, calcium 9.2. Total bilirubin 3.6, AST 29, ALT 31, alkaline phosphatase 134. Albumin 3.5. TSH 0.4. Ammonia level from yesterday 145. ASSESSMENT AND PLAN: 1. Recurrent massive right pleural effusion. Pulmonary Department has been consulted. I will continue with oxygen supplementation, the surgery department has been consulted. Probably they will place a thoracic tube to drain these, pending recommendations. Right now, she is not in respiratory distress. 2. History of asthma. Continue with breathing treatment. 3. Hypertension. We will monitor her blood pressure, stable. 4. Liver cirrhosis, I will continue with furosemide 20 and spironolactone 50, probably in the near future, we need to increase this dose. 5. Hypothyroidism, continue with Synthroid. TSH is normal. 6. Elevated ammonia likely secondary to liver cirrhosis. Continue with lactulose. cc: Fahad Dickey MD
--- NOTE | 2016-09-27 19:15 | CONSULTATION ---
DATE OF CONSULTATION: 09/27/2016 CHIEF COMPLAINT: Large right pleural effusion. HISTORY: This 71-year-old white female who has obesity, COPD, sleep apnea, class A cirrhosis of the liver, hypertension and hyperthyroidism. I have been asked to see her because of her recurrent right pleural effusion. It apparently is transudative by history and has been tapped a couple of times recently but keeps recurring. Her history is as noted above with COPD, sleep apnea, hypertension, hypothyroidism, obesity and cirrhosis of the liver. PAST SURGICAL HISTORY: x2, right rotator cuff surgery, cholecystectomy, remote jejunal bypass, and thyroidectomy. SOCIAL HISTORY: She lives with her . Stopped smoking. She denies alcohol use. FAMILY HISTORY: Unknown. REVIEW OF SYSTEMS: As noted above. PHYSICAL EXAMINATION: Vital Signs: Afebrile. Heart rate 113, respiratory rate 16, blood pressure 148/88. Lungs: She denies any significant shortness of breath currently. She has no breath sounds on the right, adequate breath sounds on the left. Heart: Regular rate and rhythm. Abdomen: Soft and nontender. Extremities: She does have swelling peripherally with some pitting edema. Neurologic: She is awake and alert. DIAGNOSTICS/LABS: White count 11,200, hemoglobin 11.6, hematocrit 37.4. Gases on admission 7.47, 68 and PO2 is 93. BUN 22, creatinine 0.9, total bilirubin 3.6, alkaline phosphatase 134, ammonia level was 145 yesterday. Urine was nitrite positive. ASSESSMENT: Massive right pleural effusion is transudative and seems to be recurring. I think she would be a good candidate for a Pleurx catheter to keep the right pleural space empty. I will discuss this with her family. I will recheck her clotting studies before proceeding. cc: Carlitos Napoles MD
[2016-09-27] MEDS ORDERED: MACROBID PO SCH (21:00)
[2016-09-28] MEDS: DUONEB (A & A) INH SCH ×6 (04:22→22:54)
[2016-09-28 05:03] LABS: ALLEN TEST YES; BE 20.1 mmoll (-3.0-3.0); BLOOD TYPE ARTERIAL; DRAW SITE R RADIAL; METHB 0.8 % (0.0-1.5); O2(CT) 15.3 mL/dL (15.0-23.0); PO2(98.6) 72 mmHg (60-100); SAMPLE BLOOD; SAO2 95.8 % (95.0-100.0); THB 11.6 g/dL (11.5-17.4); pH(98.6) 7.39 (7.35-7.45)
[2016-09-28 05:08] LABS: MODALITY CANNULA; PCO2(98.6) 81 mmHg (35-45)
[2016-09-28 06:41] LABS: MANUAL DIFF NEEDED? NO
[2016-09-28 06:44] LABS: BASO% 0.1 % (0.0-0.8); EOS# 0.29 X1000 (0.0-0.7); EOS% 2.8 % (0.0-10.0); HEMATOCRIT 35.2 % (37.0-47.0); HEMOGLOBIN 10.8 g/dL (12.0-16.0); IMM GRAN# 0.03 X1000 (0.0-0.04); IMM GRAN% 0.3 % (0.0-0.5); LYMPH# 1.06 X1000 (1.2-3.4); LYMPH% 10.3 % (20.5-51.1); MCH 30.9 PG (27-31); MCHC 30.7 g/dL (33-37); MCV 100.9 FL (81-99); MONO# 0.85 X1000 (0.11-0.59); MONO% 8.3 % (1.7-9.3); MPV 11.3 FL (7.4-10.4); NEUT% 78.2 % (42.2-75.2); PLT 101 X1000 (130-400); RBC 3.49 XMIL (4.2-5.4)
[2016-09-28 06:48] LABS: INR 1.2; PROTIME 12.8 Seconds (9.2-11.7)
[2016-09-28 07:37] LABS: AGAP 9; ALBUMIN 3.3 g/dL (3.5-5.0); ALKALINE PHOSPHATASE 121 U/L (32-104); BUN 24 mg/dL (8-22); CHLORIDE 89 mmol/L (98-107); COSMO 282; GOT 34 U/L (10-30); GPT 32 U/L (10-36); POTASSIUM 4.4 mmol/L (3.5-5.1); SODIUM 138 mmol/L (136-145); TCO2 40 mmol/L (25-35); TOTAL BILIRUBIN 3.22 mg/dL (0.20-1.00); TOTAL PROTEIN 6.4 g/dL (6.3-8.3)
[2016-09-28] MEDS ORDERED: ROCEPHIN 1 GM/NS 1 GM/50 ML IVPB IV SCH (08:00)
--- NOTE | 2016-09-28 08:15 | Diag Imaging Result Doc PS360 ---
EXAM: CT THORAX W/O CONTRAST HISTORY: effusion TECHNIQUE: CT of the chest without contrast with dose reduction (clarity.) COMMENT: The current study is compared without of 09/11/2016. There is still massive pleural effusion on the right with complete atelectasis of the right lung. This has not changed since the previous study. There is subcutaneous edema in the flanks which is somewhat worse than on the previous exam. The appearance of the mediastinum has not changed significantly. There is ascites particularly in the right subphrenic space which may be slightly worse than on the previous study. The liver is lobulated consistent with cirrhosis. The spleen is at the upper limits of normal in size. There is a small amount of fluid in the major fissure on the left which has increased since the previous study. Otherwise the left hemithorax is unchanged in appearance. The regional skeleton is stable in appearance. IMPRESSION: Minimal pleural fluid in the left major fissure. Increased ascites. Otherwise stable since 09/11/2016. Electronically signed by Master Carrion 09/28/2016 8:13 AM
[2016-09-28] MEDS: LACTULOSE PO SCH ×2 (08:59→20:36)
[2016-09-28] MEDS ORDERED: XYLOCAINE-MPF 2% ONE (10:00)
[2016-09-28] MEDS ORDERED: DIPRIVAN 1% ONE (10:00)
[2016-09-28] MEDS ORDERED: KEFZOL 1 GM/D5W 1 GM/50 ML IVPB ONE (11:05)
--- NOTE | 2016-09-28 11:45 | PROGRESS NOTE ---
DATE: 09/28/2016 SUBJECTIVE: This patient is lying comfortably in bed. She is wearing a CPAP machine at this moment. Apparently during the morning she was confused, but now she is answering all my questions and following commands. Her CO2 was elevated. Ammonia level is better. Today, she will have a Pleurx catheter on the right side. OBJECTIVE: Vital Signs: Temperature 97.7 degrees, pulse 99, respiratory rate 18, blood pressure 147/83, oxygen saturation 98 on BiPAP machine. HEENT: Head normocephalic. No trauma. PERRLA. Neck: Supple. No JVD. No masses. Central trachea. Chest: Decreased breath sounds on the right side. Left side base with rales at the base. Abdomen: Soft, obese, mildly distended. Positive bowel sounds. Extremities: Three to four plus lower extremity edema. No clubbing. No cyanosis. Neurological examination: At this moment, this patient is alert and oriented x3. No focal neurological deficits. She moves all 4 extremities. LABORATORY: WBC 10.2, hemoglobin 10.8, hematocrit 35.2, platelets 101. Sodium 138, potassium 4.4, chloride 89, bicarbonate 40, BUN 24, creatinine 0.9, glucose 134, calcium 9, albumin 3.3, glucose 134. ASSESSMENT AND PLAN: 1. Recurrent massive right pleural effusion. Pulmonary Department has been consulted and following this patient, Surgery Department will place a Pleurx catheter today. We will continue to monitor. This patient is on BiPAP machine at this moment. 2. History of asthma. Continue with the breathing treatment. 3. Hypertension. The blood pressure is stable. Continue to monitor. 4. Liver cirrhosis. We will continue with furosemide and spironolactone probably in the near future. We need to increase this dose if the kidney function is stable. 5. Hypothyroidism. Continue with Synthroid. TSH is normal. 6. Elevated ammonia likely secondary to liver cirrhosis. Today, the ammonia level is better. Continue with lactulose. cc: Fahad Dickey MD
--- NOTE | 2016-09-28 11:52 | Diag Imaging Result Doc PS360 ---
EXAM: CHEST-PORTABLE HISTORY: effusion TECHNIQUE: AP portable at 1135 COMMENT: Compared to 09/27/2016 the right pleural effusion has apparently been drained by chest tube, the tip of which is located in the medial right upper chest, and there is marked improvement with pneumatization of the right lung and only six subsegmental atelectasis in the lower lobe and middle lobe. The inspiration is less optimal than on the previous study but otherwise has been no significant change. IMPRESSION: Resolution of right pleural effusion with minimal residual atelectasis. Electronically signed by Master Carrion 09/28/2016 11:50 AM
[2016-09-28] MEDS: ALDACTONE PO SCH ×2 (13:15→15:06)
[2016-09-28] MEDS: SYNTHROID PO SCH ×2 (13:15→15:06)
[2016-09-28] MEDS: DULCOLAX PR SCH (13:16)
[2016-09-28] MEDS: NUCYNTA PO SCH ×2 (15:06→20:35)
[2016-09-28] MEDS: LASIX PO SCH (15:06)
--- NOTE | 2016-09-28 16:09 | OPERATIVE NOTE ---
PROCEDURE DATE: 09/28/2016 PROCEDURE PERFORMED: Placement of right Pleurx catheter. SURGEON: Carlitos Napoles MD. [employer]: Nga PREOPERATIVE DIAGNOSIS: Massive right pleural effusion. POSTOPERATIVE DIAGNOSIS: Massive right pleural effusion. INDICATIONS: This 71-year-old with cirrhosis, recurrent transudative effusion right pleural space. DESCRIPTION OF PROCEDURE: Satisfactory monitoring anesthesia care was established. IV sedation accomplished. The right anterolateral chest was prepped and draped in a sterile fashion. We anesthetized the skin with local anesthesia and down to the rib and into the pleural. We then incised the skin and used a needle to access the pleural space and passed the guidewire. We then anesthetized the tissue anterior and inferior, made a small stab incision, and then tunneled the Pleurx catheter from the anteromedial incision to the posterior lateral incision. We then introduced the dilator and introducer sheath into the pleural space. We removed the dilator and guidewire and introduced the Pleurx catheter into the pleural space. We secured at the exit site with a 2-0 silk stitch. We closed the skin of the posterolateral incision with a 4-0 Polysorb simple subcutaneous stitch. The catheter was attached to suction and we aspirated 3000 mL of serosanguineous fluid. We then, after suctioning 3000 mL, we attached it to the Pleur-evac in order to allow further drainage over the next 24 hours and then we can cap it off. She tolerated it well. Was breathing much improved after the placement the catheter with an improvement in her oxygen saturation. cc: MD Sarita Das MD
[2016-09-28] MEDS: MACROBID PO SCH (20:34)
[2016-09-29 03:43] LABS: ALLEN TEST YES; BE 20.4 mmoll (-3.0-3.0); BLOOD TYPE ARTERIAL; DRAW SITE R RADIAL; METHB 1.3 % (0.0-1.5); O2(CT) 12.8 mL/dL (15.0-23.0); SAMPLE BLOOD; SAO2 84.6 % (95.0-100.0); THB 11.2 g/dL (11.5-17.4); pH(98.6) 7.47 (7.35-7.45)
[2016-09-29 03:44] LABS: MODALITY ROOM AIR
[2016-09-29 03:46] LABS: PCO2(98.6) 65 mmHg (35-45)
[2016-09-29 03:47] LABS: PO2(98.6) 44 mmHg (60-100)
[2016-09-29] MEDS: DUONEB (A & A) INH SCH ×6 (05:52→23:10)
[2016-09-29 06:20] LABS: MANUAL DIFF NEEDED? NO
[2016-09-29 06:43] LABS: BASO% 0.1 % (0.0-0.8); EOS# 0.28 X1000 (0.0-0.7); EOS% 2.7 % (0.0-10.0); HEMATOCRIT 36.4 % (37.0-47.0); HEMOGLOBIN 11.3 g/dL (12.0-16.0); IMM GRAN# 0.02 X1000 (0.0-0.04); IMM GRAN% 0.2 % (0.0-0.5); LYMPH# 0.95 X1000 (1.2-3.4); LYMPH% 9.3 % (20.5-51.1); MCV 99.7 FL (81-99); MONO# 0.79 X1000 (0.11-0.59); MONO% 7.7 % (1.7-9.3); MPV 11.5 FL (7.4-10.4); PLT 89 X1000 (130-400); RBC 3.65 XMIL (4.2-5.4)
[2016-09-29 07:03] LABS: AGAP 4; ALBUMIN 2.7 g/dL (3.5-5.0); ALKALINE PHOSPHATASE 112 U/L (32-104); BUN 21 mg/dL (8-22); CALCIUM 8.3 mg/dL (8.8-10.2); CHLORIDE 89 mmol/L (98-107); COSMO 274; GOT 31 U/L (10-30); GPT 27 U/L (10-36); POTASSIUM 3.5 mmol/L (3.5-5.1); SODIUM 135 mmol/L (136-145); TCO2 42 mmol/L (25-35); TOTAL PROTEIN 5.6 g/dL (6.3-8.3)
[2016-09-29] MEDS: NUCYNTA PO SCH ×2 (08:15→20:38)
[2016-09-29] MEDS: ALDACTONE PO SCH (08:16)
[2016-09-29] MEDS: LASIX PO SCH (08:16)
[2016-09-29] MEDS: SYNTHROID PO SCH (08:16)
[2016-09-29] MEDS: MYLICON PO PRN ×2 (08:16→17:12)
[2016-09-29] MEDS: MACROBID PO SCH ×2 (08:16→20:38)
[2016-09-29] MEDS: LACTULOSE PO SCH ×2 (08:16→20:42)
[2016-09-29] MEDS: SYMBICORT 160/4.5 MICROGM INHALER INH SCH ×3 (08:20→19:38)
[2016-09-29] MEDS: DULCOLAX PR SCH (08:23)
--- NOTE | 2016-09-29 14:43 | PROGRESS NOTE ---
DATE: 09/29/2016 SUBJECTIVE: This patient is lying comfortably in bed. She is not complaining of chest pain or belly pain, she is breathing comfortably. As per the , she is no longer confused. She is getting better. We will continue to monitor. OBJECTIVE: Vital Signs: Temperature 97.7 degrees, pulse, 92 respiratory rate 20, blood pressure 124/83, O2 saturation 98% on 3 L of nasal cannula. HEENT: Head normocephalic. No trauma. PERRLA. Neck: Supple. No JVD. No masses. Central trachea. Chest: Decreased breath sounds at the level of the right lower base with rales, also rales at the level of the right lower lung. Abdomen: Abdomen is soft, nontender, nondistended. No hepatosplenomegaly. Extremities: 3 to 4+ lower extremity edema. No clubbing. No cyanosis. Neurological: The patient is sleepy, but arousable. Oriented x3. She moves all 4 extremities. LABORATORY: WBC 10.2, hemoglobin 11.3, hematocrit 36.4, platelets 89,000. Sodium 135, potassium 3.5, chloride 89, bicarbonate 42, BUN 21, creatinine 0.8, glucose 121, calcium 8.3, total bilirubin 2.5, albumin 2.7. ASSESSMENT AND PLAN: 1. Recurrent massive right pleural effusion. Surgery Department placed a Pleurx catheter yesterday. This patient feels much better. She is breathing comfortably. We will continue to monitor. 2. History of asthma, continue with breathing treatment. 3. Hypertension. Blood pressure is stable. Continue to monitor. 4. Liver cirrhosis. We will continue with furosemide and spironolactone. Probably in the near future we will increase the dose of these medications if the kidney function is stable. 5. Hypothyroidism. Continue with Synthroid. TSH is normal. 6. Elevated ammonia likely secondary to liver cirrhosis. Resolved. cc: Fahad Dickey MD
[2016-09-30] MEDS: DUONEB (A & A) INH SCH ×6 (03:05→22:21)
[2016-09-30 03:48] LABS: ALLEN TEST YES; BE 18.8 mmoll (-3.0-3.0); BLOOD TYPE ARTERIAL; DRAW SITE R RADIAL; O2(CT) 15.6 mL/dL (15.0-23.0); PO2(98.6) 69 mmHg (60-100); SAMPLE BLOOD; SAO2 96.2 % (95.0-100.0); THB 11.9 g/dL (11.5-17.4); pH(98.6) 7.38 (7.35-7.45)
[2016-09-30 03:50] LABS: MODALITY CANNULA; PCO2(98.6) 81 mmHg (35-45)
[2016-09-30 06:37] LABS: MANUAL DIFF NEEDED? NO
[2016-09-30 07:07] LABS: BASO% 0.1 % (0.0-0.8); EOS# 0.55 X1000 (0.0-0.7); EOS% 4.9 % (0.0-10.0); HEMATOCRIT 39.7 % (37.0-47.0); HEMOGLOBIN 12.3 g/dL (12.0-16.0); IMM GRAN# 0.02 X1000 (0.0-0.04); IMM GRAN% 0.2 % (0.0-0.5); LYMPH# 1.11 X1000 (1.2-3.4); LYMPH% 9.9 % (20.5-51.1); MCH 31.1 PG (27-31); MCV 100.5 FL (81-99); MONO# 0.92 X1000 (0.11-0.59); MONO% 8.2 % (1.7-9.3); MPV 11.6 FL (7.4-10.4); NEUT% 76.7 % (42.2-75.2); PLT 95 X1000 (130-400); RBC 3.95 XMIL (4.2-5.4)
[2016-09-30 07:15] LABS: AGAP 8; BUN 15 mg/dL (8-22); CALCIUM 8.2 mg/dL (8.8-10.2); CHLORIDE 83 mmol/L (98-107); COSMO 267; POTASSIUM 3.5 mmol/L (3.5-5.1); SODIUM 132 mmol/L (136-145); TCO2 41 mmol/L (25-35)
[2016-09-30] MEDS: SYMBICORT 160/4.5 MICROGM INHALER INH SCH ×2 (07:54→19:40)
[2016-09-30] MEDS: MYLICON PO PRN (08:19)
[2016-09-30] MEDS: MACROBID PO SCH ×2 (08:47→20:44)
[2016-09-30] MEDS: SYNTHROID PO SCH (08:47)
[2016-09-30] MEDS: LACTULOSE PO SCH ×2 (08:48→20:44)
[2016-09-30] MEDS: DULCOLAX PR SCH (08:48)
[2016-09-30] MEDS: NUCYNTA PO SCH ×2 (08:53→20:44)
[2016-09-30] MEDS: LASIX PO SCH (08:54)
[2016-09-30] MEDS: ALDACTONE PO SCH (08:54)
--- NOTE | 2016-09-30 16:24 | PROGRESS NOTE ---
DATE: 09/30/2016 SUBJECTIVE: This patient is lying comfortably in bed. She is not complaining of chest pain or shortness of breath. She feels much better. No family members at the bedside. She is completely alert and she is answering all my questions. OBJECTIVE: Vital Signs: Temperature 97.9 degrees, pulse 95, respiratory rate 18, blood pressure 123/63, O2 saturation 99 on 2 L of nasal cannula. HEENT: Head normocephalic. No trauma. PERRLA. Neck: Supple. No JVD. No masses. Central trachea. Chest: Decreased breath sounds at the right base with rales and also this patient has a thoracic tube. Abdomen: Soft, obese, nontender, nondistended. No hepatosplenomegaly. Extremity: 3 to 4+ lower extremity edema. No clubbing. No cyanosis. Neurological: The patient is alert, oriented x3. No focal deficits. She moves all 4 extremities. LABORATORY: WBC 11.1, hemoglobin 12.3, hematocrit 39.7, platelets 95,000. Sodium 132, potassium 3.5, chloride 83, bicarbonate 41, BUN 15, creatinine 0.8, glucose 120, calcium 8.2. ASSESSMENT AND PLAN: 1. Recurrent massive right pleural effusion. Surgery Department placed a Pleurx catheter 2 days ago. The patient feels much better. She is breathing comfortably. We will continue to monitor. 2. Liver cirrhosis. I increased today the dose of furosemide and spironolactone, furosemide will be 40 mg p.o. daily and spironolactone 100 mg p.o. daily, we will monitor the kidney function closely. She has been on this dose for more than 2 weeks and the kidney function has been stable but she still continued to have a lot of fluid, will monitor. In case of kidney injury/increased BUN and creatinine we will cut it down again. 3. History of asthma. Continue with breathing treatment. 4. Hypertension stable. Continue to monitor. 5. Hypothyroidism. Continue with Synthroid. TSH is normal. 6. Elevated ammonia likely secondary to liver cirrhosis, resolved. I increased the dose of Lasix and spironolactone today, we will monitor the kidney function. This patient came from a rehab facility. Hopefully I do believe that she can go back to that place in a couple days, we need to make sure that surgery and Pulmonary Department agree with this and also we need to make sure that the kidney function is stable. cc: Fahad Dickey MD
[2016-10-01] MEDS: DUONEB (A & A) INH SCH ×6 (03:58→23:17)
[2016-10-01 06:43] LABS: MANUAL DIFF NEEDED? NO
[2016-10-01 06:52] LABS: BASO% 0.2 % (0.0-0.8); EOS# 0.87 X1000 (0.0-0.7); EOS% 6.7 % (0.0-10.0); HEMATOCRIT 40.8 % (37.0-47.0); HEMOGLOBIN 12.9 g/dL (12.0-16.0); IMM GRAN# 0.04 X1000 (0.0-0.04); IMM GRAN% 0.3 % (0.0-0.5); LYMPH# 1.36 X1000 (1.2-3.4); LYMPH% 10.5 % (20.5-51.1); MCH 30.8 PG (27-31); MCHC 31.6 g/dL (33-37); MCV 97.4 FL (81-99); MONO# 1.01 X1000 (0.11-0.59); MONO% 7.8 % (1.7-9.3); MPV 12.3 FL (7.4-10.4); NEUT% 74.5 % (42.2-75.2); PLT 100 X1000 (130-400); RBC 4.19 XMIL (4.2-5.4)
[2016-10-01] MEDS: SYMBICORT 160/4.5 MICROGM INHALER INH SCH ×2 (07:26→19:33)
[2016-10-01] MEDS: ALDACTONE PO SCH (08:26)
[2016-10-01] MEDS: NUCYNTA PO SCH ×2 (08:26→20:29)
[2016-10-01] MEDS: SYNTHROID PO SCH (08:26)
[2016-10-01] MEDS: LACTULOSE PO SCH ×2 (08:26→20:29)
[2016-10-01] MEDS: MACROBID PO SCH ×2 (08:26→20:29)
[2016-10-01] MEDS: LASIX PO SCH (08:27)
[2016-10-01] MEDS: DULCOLAX PR SCH (08:27)
[2016-10-01 08:38] LABS: AGAP 8; BUN 14 mg/dL (8-22); CALCIUM 8.3 mg/dL (8.8-10.2); CHLORIDE 83 mmol/L (98-107); COSMO 260; POTASSIUM 4.7 mmol/L (3.5-5.1); SODIUM 129 mmol/L (136-145); TCO2 38 mmol/L (25-35)
--- NOTE | 2016-10-01 12:30 | PROGRESS NOTE ---
DATE: 10/01/2016 Ms. Hernández was admitted on 09/26/2016. Presented with shortness of breath. DOCTOR: Dr. Elías Oh. MEAT CARRIER: Dr. Evi Gutiérrez. MANAGER PRODUCE: Dr. Galvan. SUBJECTIVE: A 71-year-old presented with shortness of breath, morbid obesity, COPD, home O2. Remote jejunal ileal bypass for weight loss. Child Garcia class cirrhosis of the liver, (I am not sure what class she is in), presented to the emergency room and shortness of breath. She reports she is doing better. She had a massive right pleural effusion and she has been using BiPAP. OBJECTIVE: Vital signs: Temperature 97.9 degrees, pulse 100, respirations 20, blood pressure 120/68. HEENT: Pupils were equal, round. Lungs: Are clear in all lung rutledge. Cardiovascular: Regular rhythm and rate without murmur or S3. Abdomen: Soft. Skin is warm and dry. LABORATORY: Urine output 6700 mL, white count 96765, hematocrit is 40, platelet count 100,000, sodium 129, potassium 4.7, chloride 87, BUN is 14. Creatinine 0.7. ASSESSMENT AND PLAN: 1. Recurrent massive right pleural effusion and they placed a Pleurx catheter in 2 days ago. Continue to drain. 2. Liver cirrhosis. I have increased her furosemide, and spironolactone, so Lasix at 40 mg p.o. daily, spironolactone 100 mg p.o. daily. He had been on this dose for a while. 3. History of asthma. 4. Hypoventilation. 5. Obstructive apnea. 6. Underlying chronic obstructive pulmonary disease. 7. Hypertension. 8. Hypothyroidism. 9. Elevated ammonia secondary to liver cirrhosis. 10. Mental status I think this is stable. REVIEW OF LABS: I do not see any change in hematocrit at 40. Sodium 129, potassium 4.4, chloride 83, BUN 14, creatinine 0.7. cc: Gaurav Dorsey MD
--- NOTE | 2016-10-01 12:33 | Diag Imaging Result Doc PS360 ---
EXAM: CHEST-1 VIEW HISTORY: SOB TECHNIQUE: Portable upright AP COMPARISON: 6:30 09/17/2016 FINDINGS: The right hemithorax is no longer opacified. The lungs are well expanded. The heart is not enlarged. Atelectasis versus a small infiltrate in the medial left base. No pleural effusions identified. There are surgical clips in the lower neck. IMPRESSION: 1.The right hemithorax is no longer opacified 2.Small infiltrate or atelectasis in the left base.. Electronically signed by Coleman Gonzalez 10/01/2016 12:31 PM
[2016-10-02] MEDS: MYLICON PO PRN (02:36)
[2016-10-02] MEDS: DUONEB (A & A) INH SCH ×6 (03:50→23:32)
[2016-10-02 04:21] LABS: ALLEN TEST YES; BE 17.4 mmoll (-3.0-3.0); BLOOD TYPE ARTERIAL; DRAW SITE R RADIAL; O2(CT) 17.8 mL/dL (15.0-23.0); PO2(98.6) 71 mmHg (60-100); SAMPLE BLOOD; SAO2 96.4 % (95.0-100.0); THB 13.5 g/dL (11.5-17.4); pH(98.6) 7.47 (7.35-7.45)
[2016-10-02 04:22] LABS: MODALITY CANNULA
[2016-10-02 04:26] LABS: PCO2(98.6) 61 mmHg (35-45)
[2016-10-02] MEDS: SYMBICORT 160/4.5 MICROGM INHALER INH SCH ×2 (08:03→19:27)
[2016-10-02] MEDS: LASIX PO SCH (09:01)
[2016-10-02] MEDS: SYNTHROID PO SCH (09:01)
[2016-10-02] MEDS: MACROBID PO SCH ×2 (09:01→21:54)
[2016-10-02] MEDS: DULCOLAX PR SCH (09:01)
[2016-10-02] MEDS: NUCYNTA PO SCH ×2 (09:01→21:54)
[2016-10-02] MEDS: LACTULOSE PO SCH ×2 (09:02→21:54)
[2016-10-02] MEDS: ALDACTONE PO SCH (09:02)
--- NOTE | 2016-10-02 09:24 | PROGRESS NOTE ---
DATE: 10/02/2016 SUBJECTIVE: Ms. Hernández is feeling better. She would like to start some physical therapy. She feels like her breathing is doing better. Remains afebrile. OBJECTIVE: Temperature 97.3 degrees, pulse 98, respirations 20, blood pressure 108/70. Eyes: Pupils are equal and round. Lungs are clear in all lung rutledge. Cardiovascular: Regular rhythm and rate without murmur or S3. Urine output 4400 mL. I reviewed lab from 10/01/2016. Note that sodium was down to 129. Creatinine 0.7. Hematocrit stable. ASSESSMENT AND PLAN: 1. Recurrent massive right pleural effusion. Has a Pleurx catheter draining chest. 2. Liver cirrhosis. I have increased her furosemide and spironolactone. 3. History of asthma. 4. Hypoventilation. 5. Obstructive apnea. 6. Morbid obesity. 7. Underlying chronic obstructive pulmonary disease. 8. Hypertension. 9. Hypothyroidism. 10. Elevated ammonia secondary to cirrhosis. We will see if we can initiate some physical therapy and work on her strength. I think physical therapy has already consulted. I reviewed the orders. Patient taking Nucynta tapentadol 50 mg b.i.d., Aldactone 100 mg daily, Simethicone 80 mg p.o. 4 times a day, nitrofurantoin 100 mg p.o. q.12 hours, Synthroid 150 mg p.o. daily, lactulose 30 mL p.o. q.12 hours, Lasix 40 mg a day. cc: Gaurav Dorsey MD
[2016-10-03] MEDS: DUONEB (A & A) INH SCH ×6 (03:18→22:50)
[2016-10-03 04:11] LABS: BLOOD TYPE ARTERIAL; SAMPLE BLOOD
[2016-10-03 04:12] LABS: ALLEN TEST YES; BE 16.9 mmoll (-3.0-3.0); DRAW SITE L RADIAL; METHB 0.9 % (0.0-1.5); O2(CT) 17.7 mL/dL (15.0-23.0); PO2(98.6) 76 mmHg (60-100); SAO2 97.3 % (95.0-100.0); THB 13.3 g/dL (11.5-17.4); pH(98.6) 7.47 (7.35-7.45)
[2016-10-03 04:14] LABS: MODALITY CANNULA; PCO2(98.6) 60 mmHg (35-45)
[2016-10-03] MEDS: SYMBICORT 160/4.5 MICROGM INHALER INH SCH ×2 (07:36→19:10)
[2016-10-03] MEDS: DULCOLAX PR SCH (08:38)
[2016-10-03] MEDS: SYNTHROID PO SCH (08:38)
[2016-10-03] MEDS: LACTULOSE PO SCH ×2 (08:38→20:48)
[2016-10-03] MEDS: LASIX PO SCH (08:38)
[2016-10-03] MEDS: MACROBID PO SCH ×2 (08:38→20:48)
[2016-10-03] MEDS: ALDACTONE PO SCH (08:39)
[2016-10-03] MEDS: NUCYNTA PO SCH ×2 (08:39→20:48)
--- NOTE | 2016-10-03 09:56 | PROGRESS NOTE ---
DATE: 10/03/2016 SUBJECTIVE: A 71-year-old. She states that she would like to get up. She is uncomfortable and would like to start walking. She has her chest tube in place. Sher catheter. PHYSICAL EXAMINATION: Vital Signs: Temperature 97.6 degrees, pulse 108, respirations 16, blood pressure 103/47. Lungs: Clear on the left. The right had some scattered rhonchi. Cardiovascular Examination: Regular rhythm and rate without murmur or S3. Abdomen: Soft. Skin: Is warm and dry. Is and Os: Urine output was about 4.5 L. LABORATORY DATA: Reviewed lab from the 4th. Hematocrit stable at 40. Electrolytes unremarkable. ASSESSMENT AND PLAN: 1. Recurrent massive right pleural effusion. She has a Pleurx catheter. It continues to drain. 2. Liver cirrhosis and chronic liver hepatic congestion. Still on furosemide and spironolactone. 3. History of asthma. 4. Hypoventilation. 5. Obstructive apnea. 6. Morbid obesity. 7. Underlying chronic obstructive pulmonary disease. 8. Hypertension. 9. Hypothyroidism. 10. Elevated ammonia level secondary to cirrhosis. 11. Review of her orders. She has physical therapy already started. See if we can increase her activity. I need to discuss with the team the long-term plan. Right now, Dr. Napoles has evaluated. Dr. Gutiérrez is following and Dr. Galvan. We will discuss long-term goals. cc: Gaurav Dorsey MD
[2016-10-03] MEDS: MYLICON PO PRN (15:16)
[2016-10-04] MEDS: DUONEB (A & A) INH SCH ×6 (03:46→23:15)
[2016-10-04] MEDS: NUCYNTA PO SCH (08:37)
[2016-10-04] MEDS: LACTULOSE PO SCH (08:37)
[2016-10-04] MEDS: MACROBID PO SCH (08:38)
[2016-10-04] MEDS: ALDACTONE PO SCH (08:38)
[2016-10-04] MEDS: LASIX PO SCH (08:38)
[2016-10-04] MEDS: DULCOLAX PR SCH (08:38)
[2016-10-04] MEDS: SYNTHROID PO SCH (08:38)
[2016-10-04] MEDS: SYMBICORT 160/4.5 MICROGM INHALER INH SCH ×3 (08:39→19:20)
--- NOTE | 2016-10-04 09:21 | Diag Imaging Result Doc PS360 ---
EXAM: CHEST-1 VIEW HISTORY: SOB TECHNIQUE: AP portable at 0855 COMMENT: The inspiration is suboptimal and less optimal than on 10/01/2016. There is a small apical pneumothorax on the right and soft tissue emphysema in the right chest wall inferiorly. The appearance of the left lung has not changed significantly. The heart and pulmonary vascularity are stable in appearance. IMPRESSION: Right pneumothorax. The findings were called to the office of Sarita Galvan MD at 10/04/2016 9:17 AM. Electronically signed by Master Carrion 10/04/2016 9:19 AM
--- NOTE | 2016-10-04 15:13 | Diag Imaging Result Doc PS360 ---
EXAM: CHEST-1 VIEW HISTORY: SOB TECHNIQUE: Portable upright AP COMPARISON: Compared to study performed at 9:02 AM FINDINGS: There continues to the a small right apical pneumothorax. This has not increased in size compared to the study performed earlier. Subcutaneous area in the axilla remains. The left lung is clear. No cardiomegaly. IMPRESSION: No interval increase in the size of the right-sided pneumothorax.. Electronically signed by Coleman Gonzalze 10/04/2016 3:11 PM
--- NOTE | 2016-10-04 16:25 | PROGRESS NOTE ---
DATE: 10/04/2016 SUBJECTIVE: This time is feeling a little better, feeling a little stronger, breathing more comfortable. OBJECTIVE: Vital signs: Remains afebrile, temperature 97.5 degrees, pulse 95, respirations 18, blood pressure 114/74. HEENT: Pupils are equal, round. CVP less than 6 cm. Lungs: Right lung with scattered rhonchi. Chest tube in place. Left lung is clear. Abdomen: Soft. Skin: Warm and dry. Urine output over 1000 mL. DATA: Chest x-ray from this morning no interval increase in the size the right-sided pneumothorax about the same. Continues to be small right apical pneumothorax though has not increased in size compared to study earlier. Subcutaneous area in the axillary remains, left lung is clear. ASSESSMENT AND PLAN: 1. Recurrent mass and right pleural effusion. Has a Pleurx catheter in and plan I guess is be discharged either home or shelter and continued to drain the catheter on a regular basis. 2. Liver cirrhosis, chronic liver hepatic congestion, still using furosemide and spironolactone. 3. History of asthma. 4. Hypoventilation. 5. Obstructive apnea. 6. Morbid obesity. 7. Underlying chronic obstructive pulmonary disease. 8. Hypertension. 9. Hypothyroidism. Nutrition, p.o. intake seems to have improved. I discussed with Dr. Galvan, Dr. Gutiérrez, Dr. Napoles, I guess the plan is to try and see if we can discharge her 1st next week. Continue physical therapy and see if we can get someone to maintain the Pleurx catheter and chronic pleural effusion. Her orders I do not see any change at this point, she is on Nucynta 50 mg b.i.d., Aldactone 100 mg daily, simethicone 80 mg p.o. 4 times a day for 2 tablet, nitrofurantoin 100 mg p.o. b.i.d., levothyroxine 150 mcg daily, lactulose 30 mg q.12, Lasix 40 mg a day, budesonide inhaler 1 puff b.i.d., I think we will stop the nitrofurantoin. She did have urine culture that grew out Serratia and it was sensitive to nitrofurantoin so we will do another 24-48 hours of Macrodantin. cc: Gaurav Dorsey MD
[2016-10-05] MEDS: NUCYNTA PO SCH ×3 (01:09→20:45)
[2016-10-05] MEDS: MACROBID PO SCH ×3 (01:10→20:45)
[2016-10-05] MEDS: LACTULOSE PO SCH ×3 (01:10→20:45)
[2016-10-05] MEDS: DUONEB (A & A) INH SCH ×6 (03:30→23:17)
--- NOTE | 2016-10-05 06:14 | Diag Imaging Result Doc PS360 ---
EXAM: CHEST-1 VIEW HISTORY: SOB TECHNIQUE: Semiupright portal AP COMPARISON: 10/04/2016 FINDINGS: Mild increase in the size of the right apical pneumothorax. Mild worsening in the right lung atelectasis. Left lung remains well expanded and clear. Heart is not enlarged. Right axillary subcutaneous emphysema. Surgical clips in the lower neck. IMPRESSION: Interval increase in size of the right-sided pneumothorax.. Electronically signed by Coleman Gonzalez 10/05/2016 6:12 AM
[2016-10-05] MEDS: SYMBICORT 160/4.5 MICROGM INHALER INH SCH ×2 (07:25→19:30)
[2016-10-05] MEDS: SYNTHROID PO SCH (09:07)
[2016-10-05] MEDS: DULCOLAX PR SCH (09:07)
[2016-10-05] MEDS: ALDACTONE PO SCH (09:07)
[2016-10-05] MEDS: LASIX PO SCH (09:07)
[2016-10-06] MEDS: DUONEB (A & A) INH SCH ×6 (04:07→23:25)
[2016-10-06 06:22] LABS: BASO% 0.1 % (0.0-0.8); EOS% 3.8 % (0.0-10.0); HEMATOCRIT 41.6 % (37.0-47.0); HEMOGLOBIN 14.2 g/dL (12.0-16.0); IMM GRAN# 0.09 X1000 (0.0-0.04); IMM GRAN% 0.7 % (0.0-0.5); LYMPH# 1.51 X1000 (1.2-3.4); LYMPH% 11.6 % (20.5-51.1); MANUAL DIFF NEEDED? NO; MCH 30.6 PG (27-31); MCHC 34.1 g/dL (33-37); MCV 89.7 FL (81-99); MONO# 1.84 X1000 (0.11-0.59); MONO% 14.1 % (1.7-9.3); MPV 11.4 FL (7.4-10.4); NEUT% 69.7 % (42.2-75.2); PLT 176 X1000 (130-400); RBC 4.64 XMIL (4.2-5.4)
[2016-10-06 06:35] LABS: CALCIUM 8.8 mg/dL (8.8-10.2); MAGNESIUM 2.1 mg/dL (1.5-2.7); POTASSIUM 5.2 mmol/L (3.5-5.1)
[2016-10-06] MEDS ORDERED: NS 1,000 ML IV SCH (07:21)
[2016-10-06] MEDS: SYMBICORT 160/4.5 MICROGM INHALER INH SCH ×2 (07:42→19:35)
--- NOTE | 2016-10-06 08:01 | Diag Imaging Result Doc PS360 ---
EXAM: CHEST-1 VIEW - 10/06/2016 HISTORY: SOB TECHNIQUE: Portable chest 0540 COMPARISON: 10/05/2016 FINDINGS: Heart size is normal. Inspiration is mildly shallow. Right chest catheter remains in place. There is a small pneumothorax at the right apex which has decreased. There is persistent subcutaneous emphysema on the right. There is persistent mild prominence of interstitial markings at the lung bases. There is no dense consolidation or substantial pleural effusion identified. IMPRESSION: Small right apical pneumothorax which has decreased compared to the prior exam. Persistent subcutaneous emphysema on the right. Persistent mild prominence of basilar interstitial markings. Electronically signed by Elías Atkins 10/06/2016 7:59 AM
[2016-10-06 08:32] LABS: ALLEN TEST NO; BE 12.6 mmoll (-3.0-3.0); BLOOD TYPE ARTERIAL; DRAW SITE R BRACHIAL; O2(CT) 18.9 mL/dL (15.0-23.0); PCO2(98.6) 47 mmHg (35-45); PO2(98.6) 71 mmHg (60-100); SAMPLE BLOOD; SAO2 96.5 % (95.0-100.0); THB 14.4 g/dL (11.5-17.4); pH(98.6) 7.51 (7.35-7.45)
[2016-10-06 08:34] LABS: MODALITY CANNULA
[2016-10-06] MEDS: MACROBID PO SCH ×2 (08:39→20:20)
[2016-10-06] MEDS: ALDACTONE PO SCH (08:40)
[2016-10-06] MEDS: LACTULOSE PO SCH ×2 (08:40→20:19)
[2016-10-06] MEDS: LASIX PO SCH (08:40)
[2016-10-06] MEDS: SYNTHROID PO SCH (08:40)
[2016-10-06] MEDS: NUCYNTA PO SCH ×2 (08:42→20:19)
[2016-10-06] MEDS: DULCOLAX PR SCH (08:44)
--- NOTE | 2016-10-06 10:24 | PROGRESS NOTE ---
DATE: 10/06/2016 SUBJECTIVE: She is a little more confused today. Her is at the bedside. I have not met him yet and have not seen at the hospital, yet. OBJECTIVE: Vital Signs: Temperature 97.2 degrees, pulse 104, respirations 20, blood pressure 120/67. HEENT: Pupils are equal, round. Lungs: Clear in all lung rutledge. Diminished breath sounds in the right base. Cardiovascular: Regular rhythm and rate without murmur or S3. Abdomen: Soft. Skin is warm and dry. Urine output 2 L. LABORATORY DATA: White count 86492, hematocrit 41, platelet count 176,000. Sodium down to 119. Potassium 5.2, chloride 74, BUN 27, creatinine 1.2. Calcium 8.8. Albumin was 2.7. Chest x-ray from today, small right apical pneumothorax which is decreased compared to prior exam. Persistent subcutaneous emphysema on the right. Persistent mild prominence of basilar interstitial marking. Cast remains in place. ASSESSMENT AND PLAN: 1. Recurrent right pleural effusion. She has a Pleurx catheter in and continues to drain catheter. Daily drainage yesterday it appeared to be that I guess about 900 mL and the day before about 860 mL. 2. Profound hyponatremia. I think we are going to have to put her on a regular diet where she is not salt restricted. I am going to continue Lasix just at 40 mg p.o. daily, spironolactone is at 100 mg a day. I am giving her back some normal saline at 85 mL an hour. I will advance her to regular diet. 3. We discussed detention plans. I think he would like to get her to rehab again. is a nurse and he would be capable of taking care of the fluid maintenance and the chest tube. I did have a discussion explaining her pathophysiology and I doubt that she will be able to get the chest tube out. At the present time, we are going to work on her sodium and we are going to see if we can get her protein and albumin up. We will put her on a regular diet and try and get her up out of the bed. cc: Gaurav Dorsey MD
--- NOTE | 2016-10-06 10:52 | PROGRESS NOTE ---
DATE: 10/06/2016 Ms. Hernández's Pleurx catheter is draining yellow thin fluid. It is off suction. It is just to gravity drain. An x-ray yesterday showed a slightly larger apical pneumothorax. The exit site of this catheter looks good. A stitch is still in place and there has been no displacement of the catheter. We will continue the same. cc: Janine Araujo MD
[2016-10-06 15:44] LABS: CALCIUM 8.5 mg/dL (8.8-10.2)
[2016-10-07] MEDS: NS 1,000 ML IV SCH ×3 (00:54→12:12)
[2016-10-07] MEDS: DUONEB (A & A) INH SCH ×6 (03:40→23:55)
--- NOTE | 2016-10-07 03:49 | PROGRESS NOTE ---
DATE: 10/05/2016 The patient is sleeping, resting comfortably. A chest tube in the right chest. Breathing comfortably. OBJECTIVE: Temperature 97.5 degrees, pulse 99, respirations 18, blood pressure 110/72. Pupils are equal. CVP less than 6 cm. Lungs are clear in all lung rutledge. Cardiovascular: Regular rhythm and rate without murmur or S3. Abdomen is soft. Skin is warm and dry. Urine output 2100 mL. LABORATORY DATA: Chemistries and CBC reviewed from 10/01/2016. We will check some more in the morning. Chest x-ray from today: Interval increase in size. Right-sided pneumothorax. Mild worsening on the right lung atelectasis. Left lung remains well expanded and clear. ASSESSMENT AND PLAN: 1. Recurrent right pleural effusion, multifactorial. She has a Pleurx catheter. Right heart failure, diastolic dysfunction, liver cirrhosis, chronic hepatic congestion are her main factors. She will need to continue to drain off the pleural fluid and see what we can do to set her up to either go home or longterm and possibly teach her added to this. 2. Liver cirrhosis, aware. 3. Asthma. 4. Hypoventilation. 5. Obstructive apnea. 6. Obesity. 7. Hypertension. 8. Hypothyroidism. 9. General weakness and deconditioning. I encouraged her to get some exercise and continue physical therapy. This is going to be a difficult task to try and keep this pleural effusion controlled. I reviewed orders. I do not see any change at this point. cc: Gaurav Dorsey MD
[2016-10-07 04:47] LABS: ALLEN TEST YES; BE 9.5 mmoll (-3.0-3.0); BLOOD TYPE ARTERIAL; DRAW SITE R RADIAL; METHB 1.1 % (0.0-1.5); O2(CT) 18.6 mL/dL (15.0-23.0); PCO2(98.6) 42 mmHg (35-45); PO2(98.6) 89 mmHg (60-100); SAMPLE BLOOD; SAO2 98.5 % (95.0-100.0); THB 13.8 g/dL (11.5-17.4); pH(98.6) 7.51 (7.35-7.45)
[2016-10-07 04:49] LABS: MODALITY CANNULA
[2016-10-07 06:28] LABS: ALBUMIN 2.9 g/dL (3.5-5.0); CALCIUM 8.5 mg/dL (8.8-10.2); MAGNESIUM 2.1 mg/dL (1.5-2.7); POTASSIUM 4.9 mmol/L (3.5-5.1); TOTAL BILIRUBIN 3.19 mg/dL (0.20-1.00); TOTAL PROTEIN 5.5 g/dL (6.3-8.3)
--- NOTE | 2016-10-07 07:24 | Diag Imaging Result Doc PS360 ---
EXAM: CHEST-1 VIEW HISTORY: SOB TECHNIQUE: Erect AP portable at 0535 COMMENT: There is considerable soft tissue emphysema throughout the right hemithorax. This extends into the supraclavicular region on the right. There is minimal if any residual pneumothorax on the right. The Pleurx catheter is again noted. There is some atelectasis in both lung bases. IMPRESSION: Minimal atelectasis and residual left pneumothorax. Continued right thoracic soft tissue emphysema. Electronically signed by Master Carrion 10/07/2016 7:22 AM
[2016-10-07] MEDS: SYMBICORT 160/4.5 MICROGM INHALER INH SCH ×2 (07:55→19:55)
[2016-10-07] MEDS: NUCYNTA PO SCH ×2 (09:19→20:37)
[2016-10-07] MEDS: DULCOLAX PR SCH (09:20)
[2016-10-07] MEDS: ALDACTONE PO SCH (09:20)
[2016-10-07] MEDS: LACTULOSE PO SCH ×2 (09:21→20:37)
[2016-10-07] MEDS: LASIX PO SCH (09:21)
[2016-10-07] MEDS: MACROBID PO SCH (09:21)
[2016-10-07] MEDS: SYNTHROID PO SCH (09:21)
--- NOTE | 2016-10-07 17:59 | PROGRESS NOTE ---
DATE: 10/07/2016 SUBJECTIVE: Ms. Hernández is more awake and alert. She is still having some episodes of confusion and forgetfulness. She remains afebrile. OBJECTIVE: Vital Signs: Temperature 97.6 degrees, pulse 99, respirations 16, blood pressure 115/69. Lungs: Clear in all lung rutledge. Cardiovascular: Regular rhythm and rate without murmur or S3. Abdomen: Soft. Skin: Warm and dry. Urine Output: 620 mL. DIAGNOSTIC DATA: Lab reviewed from yesterday. Hematocrit stable at 41. Sodium this morning 120, potassium 4.9, chloride 76, BUN 30, creatinine 1.1. Liver enzymes, AST of 52, ALT 62, alkaline phosphatase 218. Chest x-ray today, minimal atelectasis and residual left pneumothorax. Continued right thorax soft tissue emphysema. ASSESSMENT AND PLAN: 1. PleurX catheter draining yellow fluid. It is off suction, just to gravity drain. Chest x-ray showed a slightly large apical pneumothorax, but this appears to be stable today. Clinically, she appears to be breathing better. 2. Hyponatremia, which I suspect is hypovolemic hyponatremia, but also probably an element of syndrome of inappropriate antidiuretic hormone secretion. I am going to stop the Lasix, continue spironolactone at 100 mg a day, and continue intravenous fluids in hopes to get her sodium back up. We may have to give her some hypertonic fluid. 3. Chronic pain. Her has complained about her pain and would like her to increase the pain medication. I did explain this may also increase confusion. 4. Liver cirrhosis. 5. Recurrent pleural effusion because of diastolic dysfunction, right ventricular high pressures, and cirrhosis with chronic pleural fluid with PleurX catheter in. We need to also try and get her out of bed and get her ambulating, which I think would help as much as anything. cc: Gaurav Dorsey MD
[2016-10-08] MEDS: NS 1,000 ML IV SCH ×2 (00:17→12:24)
[2016-10-08] MEDS: DUONEB (A & A) INH SCH ×6 (03:17→23:19)
[2016-10-08] MEDS: SYMBICORT 160/4.5 MICROGM INHALER INH SCH ×2 (07:27→19:47)
[2016-10-08 08:02] LABS: CALCIUM 8.5 mg/dL (8.8-10.2); POTASSIUM 4.6 mmol/L (3.5-5.1)
[2016-10-08] MEDS: NUCYNTA PO SCH ×2 (08:02→21:40)
--- NOTE | 2016-10-08 08:02 | Diag Imaging Result Doc PS360 ---
EXAM: CHEST-1 VIEW INDICATION: SOB TECHNIQUE: One view COMPARISON: 10/07/2016 FINDINGS: There is very little if any residual pneumothorax on the right. There is still significant subcutaneous emphysema overlying the right chest wall. However, it appears to improved somewhat. No new consolidations appreciated. Cardiac silhouette is stable. IMPRESSION: Little if any residual pneumothorax on the right and decreased subcutaneous emphysema overlying the right chest wall. Electronically signed by Efrain Yousif 10/08/2016 8:00 AM
[2016-10-08] MEDS: DULCOLAX PR SCH (08:03)
[2016-10-08] MEDS: ALDACTONE PO SCH (08:03)
[2016-10-08] MEDS: SYNTHROID PO SCH (08:03)
[2016-10-08] MEDS: LACTULOSE PO SCH ×2 (08:03→21:40)
--- NOTE | 2016-10-08 14:32 | PROGRESS NOTE ---
DATE: 10/08/2016 SUBJECTIVE: Ms. Hernández is actually feeling a little better today, a little stronger. Sodium has come up a couple of points. Still having her back pain. Less confused. She was able to get up and get out of bed some yesterday. OBJECTIVE: Temperature 97.3 degrees, pulse 94, respirations 16, blood pressure 125/81. HEENT: Pupils are equal, round. Lungs are clear in all lung rutledge. Cardiovascular: Regular rate without murmur or S3. Abdomen is soft. Skin warm and dry. Urine output 2500 mL. LABORATORY DATA: Chemistry: Sodium 121, potassium 4.6, chloride 78. BUN 29, creatinine 1.2, bicarb 31, albumin 2.9. Chest x-ray from this morning: Little, if any, residual pneumothorax on the right. Decreased subcutaneous emphysema overlying the right chest wall. ASSESSMENT AND PLAN: 1. Recurrent right pleural effusion secondary to diastolic dysfunction. Right-sided pressures and cirrhosis. She has a Pleurx catheter. It seems to be draining a little less. Clinically, she seems to be improving. 2. Hyponatremia. Continue her present fluids. I stopped her Lasix. Continue spironolactone but seemed to be making some improvement slowly. Continue present fluids. 3. Chronic pain. She is back on her usual medications for lower back pain. 4. Liver cirrhosis, aware. 5. Nutrition. She seems to be eating a little better. 6. General weakness and deconditioning. Continue physical therapy, continue to try and get her out of bed. MEDICATIONS: 1. Nucynta 50 mg p.o. b.i.d. 2. Spironolactone 100 mg a day. 3. Simethicone 80 mg p.o. 4 times a day. 4. She is getting normal saline 85 mL an hour. 5. Synthroid 150 mcg daily. 6. Lactulose 30 mL twice a day. Hope to get her to rehab, but we need to get her sodium up closer to 130 and, hopefully, getting her up. There is still a question of whether she is going to go to rehab or her go home. We will continue the Pleurx catheter. cc: Gaurav Dorsey MD
[2016-10-09] MEDS: MYLICON PO PRN (00:04)
[2016-10-09] MEDS: NS 1,000 ML IV SCH ×2 (00:06→12:40)
[2016-10-09] MEDS: DUONEB (A & A) INH SCH ×6 (03:40→22:47)
[2016-10-09 04:58] LABS: ALLEN TEST YES; BE 2.3 mmoll (-3.0-3.0); BLOOD TYPE ARTERIAL; DRAW SITE R RADIAL; O2(CT) 22.7 mL/dL (15.0-23.0); PCO2(98.6) 39 mmHg (35-45); PO2(98.6) 79 mmHg (60-100); SAMPLE BLOOD; SAO2 96.4 % (95.0-100.0); THB 17.2 g/dL (11.5-17.4); pH(98.6) 7.44 (7.35-7.45)
[2016-10-09 04:59] LABS: MODALITY CANNULA
--- NOTE | 2016-10-09 07:22 | Diag Imaging Result Doc PS360 ---
CHEST-1 VIEW - 10/09/2016 INDICATION: SOB TECHNIQUE: COMPARISON: 10/08/2016 FINDINGS: Stable right chest tube in good position. No significant pneumothorax. Stable subcutaneous emphysema at the right chest wall. This includes both the chest tube insertion site and also in the supraclavicular fossa. There is slight worsening in patchy infiltrate/atelectasis at the right lung base. The left lung remains clear. IMPRESSION: Slight worsening patchy infiltrate or atelectasis in the right lung base. Electronically signed by Dale Guardado 10/09/2016 7:20 AM
[2016-10-09] MEDS: SYMBICORT 160/4.5 MICROGM INHALER INH SCH ×2 (07:42→19:16)
[2016-10-09 07:47] LABS: CALCIUM 8.5 mg/dL (8.8-10.2); POTASSIUM 4.9 mmol/L (3.5-5.1)
[2016-10-09 08:19] LABS: MANUAL DIFF NEEDED? NO
[2016-10-09 08:23] LABS: BASO% 0.1 % (0.0-0.8); EOS# 0.31 X1000 (0.0-0.7); EOS% 1.6 % (0.0-10.0); HEMATOCRIT 38.6 % (37.0-47.0); HEMOGLOBIN 13.4 g/dL (12.0-16.0); IMM GRAN# 0.13 X1000 (0.0-0.04); IMM GRAN% 0.7 % (0.0-0.5); LYMPH# 1.38 X1000 (1.2-3.4); LYMPH% 7.3 % (20.5-51.1); MCH 30.8 PG (27-31); MCHC 34.7 g/dL (33-37); MCV 88.7 FL (81-99); MONO# 1.53 X1000 (0.11-0.59); MONO% 8.1 % (1.7-9.3); MPV 11.1 FL (7.4-10.4); NEUT% 82.2 % (42.2-75.2); PLT 181 X1000 (130-400); RBC 4.35 XMIL (4.2-5.4)
[2016-10-09] MEDS ORDERED: NON-FORMULARY MED TOP SCH (09:00)
[2016-10-09] MEDS: DULCOLAX PR SCH (10:09)
[2016-10-09] MEDS: NUCYNTA PO SCH ×3 (10:16→21:12)
[2016-10-09] MEDS: LACTULOSE PO SCH ×2 (10:16→20:18)
[2016-10-09] MEDS: SYNTHROID PO SCH (10:20)
[2016-10-09] MEDS: ZOSYN 3.375 GM/NS 3.375 GM/50 ML IVPB IV SCH ×3 (10:23→20:19)
[2016-10-09 15:20] LABS: URINE SOURCE CATH
[2016-10-09 15:25] LABS: BILIRUBIN URINE NEGATIVE (NEGATIVE); BLOOD URINE MODERATE (NEGATIVE); COLOR YELLOW; GLUCOSE URINE NEGATIVE (NEGATIVE); LEUKOCYTES URINE LARGE (NEGATIVE); NITRITE URINE NEGATIVE (NEGATIVE); PH URINE 5.5; PROTEIN URINE 30 mg/dL (NEGATIVE); SP GRAVITY URINE 1.022; TURBIDITY URINE HAZY (CLEAR); UROBILINOGEN URINE 3 mg/dL (NORMAL)
[2016-10-09 15:32] LABS: UR EPITHELIAL CELLS <10 /HPF (<10); URINE BACTERIA 4+ /HPF; URINE MICRO REVIEW NEEDED? YES; URINE RBC TNTC /HPF (<10); URINE WBC TNTC /HPF (<10)
[2016-10-09 15:44] LABS: UR CREAT RANDOM 92.3 mg/dL (11-20); UR PROT RANDOM 61.8 mg/dL; UR SODIUM < 10 mmoll; UR UREA NITROGEN RANDOM 850 mg/dL
[2016-10-09] MEDS ORDERED: BUPRENORPHINE 20 MCG TD SCH (17:13)
--- NOTE | 2016-10-09 17:58 | PROGRESS NOTE ---
DATE: 10/09/2016 SUBJECTIVE: The patient is sitting up in the chair. She complains of persistent back pain. According to the patient's family the patient has not been eating well and she does have a lot of swelling in the lower extremities. OBJECTIVE: Vital Signs: Temperature 97.9 degrees, blood pressure 142/98, heart rate 95, respirations 15, O2 saturation is 98% on 3 L nasal cannula. Intake 1.5 L. Output 877 mL. General: This is a morbidly obese female, sitting in a chair in no acute distress. Head: Normocephalic, atraumatic. Heart: S1, S2. Normal. Regular rate and rhythm. Lungs: Equal air entry bilaterally. Diminished breath sounds in the right lung field. No crackles. No rales. Abdomen: Positive bowel sounds. Soft, obese, nontender, nondistended. Extremities: There is 3+ edema. No cyanosis. No calf tenderness. Neurologic: The patient is alert and oriented x3. LABS: Sodium 120, potassium 4.9, chloride 81, CO2 24, BUN 33, creatinine 1.1, glucose 114, calcium 8.5. White blood cell count 18.8, hemoglobin 13, hematocrit 38, platelets 181,000. Chest x-ray shows right lung base infiltrate. Urinalysis: Large leukocytes, 4+ bacteria. ASSESSMENT AND PLAN: 1. Status post a right Pleurx catheter placement secondary to recurrent right pleural effusion. Stable. 2. Right lung infiltrate. The patient's white blood cell count has increased over the last several days. We will check blood cultures, sputum Gram stain and culture, and start the patient on IV antibiotic therapy. Continue with bronchodilator therapy. 3. Hyponatremia. Will check urine sodium and urine osmolality. The patient has been on normal saline since 10/06. Will d/c the NS. We will also consult the director of web marketing. 4. Hypothyroidism. Continue on Synthroid. 5. Morbid obesity. Aware. 6. Liver cirrhosis. Aware. 7. Bilateral lower extremity edema. Will check bilateral venous Dopplers to rule out DVT. 8. Chronic back pain. Continue on the Nucynta. 9. Deep vein thrombosis prophylaxis. We will start the patient on Lovenox. cc: Josi Dial MD MTDImani
[2016-10-09] MEDS ORDERED: LASIX IV ONE (18:00)
[2016-10-09] MEDS ORDERED: VANCOMYCIN IV PER PHARMACY MISC SCH (18:15)
--- NOTE | 2016-10-09 18:23 | CONSULTATION ---
DATE OF CONSULTATION: 10/09/2016 REASON FOR ADMISSION: Increased work of breathing and lethargy associated with severe shortness of breath. REASON FOR CONSULT: Hyponatremia. CONSULTING PHYSICIAN: Dr. Josi Dial. PRIMARY CARE PHYSICIAN: As noted, Dr. Elías Oh, tax accountant, Dr. Gutiérrez, the programmer operator numerical control Dr. Galvan. HISTORY OF PRESENT ILLNESS: Ms. Hernández has been hospitalized for the last 13 days secondary to increased work of breathing. Patient is a resident at a rehab facility who 13 days ago developed increased work of breathing with shortness of breath, lower extremity edema and confusion for the previous 48 hours. Her had brought her in noting that she had increased confusion. She had recently prior to that admission had a status post thoracentesis on September 16 and a chest x- ray in the emergency department indicated a right pleural effusion. She remains on O2. Her saturation has been anywhere from 93-96%. She continues to be followed by Dr. Galvan. Dr. Carlitos Napoles placed a PleurX catheter to intermittent suction. This is now to gravity draining serous drainage to the container. Chest x-ray previously done indicates minimal atelectasis with a left pneumothorax. Patient has had a drop in her sodium level over the last 5 days and they have been unable to get it up with normal saline. Subsequently this a.m. they have stopped her Aldactone. She complains of back pain. She has poor appetite. Patient has been on Megace in the rehab. She continues with a recurrent right pleural effusion secondary to diastolic dysfunction. She has right-sided pressures associated with cirrhosis. She remains on normal saline at 85 mL an hour. She is not on any diuretics at this time. She is awake. She is alert. She currently denies any chest pain. She has chronic lower back pain. No nausea or vomiting. She does admit to loss of appetite. No fever or chills. PAST MEDICAL HISTORY: Morbid obesity, COPD with possible sleep apnea which study had been set up with Dr. Galvan in the past. 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 PAST SURGICAL HISTORY: She has had a section x2, right rotator cuff surgery, cholecystectomy, remote jejunoileal bypass for weight loss and thyroidectomy. SOCIAL HISTORY: She has currently been in rehab. Otherwise she has lived with her spouse. She is . She has family who are attentive to her care. She quit smoking greater than 3 years ago. Denies any alcohol or illicit drug use. PAST FAMILY HISTORY: Noncontributory. ALLERGIES: Listed as iodine, iodinated contrast media and oral contrast. HOME MEDICATIONS: Are tizanidine hydrochloride, Synthroid, Symbicort inhaler, Nucynta, Atrovent nebulizers, bumetanide, albuterol nebs, Aldactone, Dulcolax, Lasix, Butrans, Mylicon and lactulose. REVIEW OF SYSTEMS: Unable to obtain per patient except for pertinent positives listed above in the HPI. Most personal information obtained from chart. Patient's most recent vital signs, temperature 97.4 degrees, blood pressure 123/87, heart rate 99, respirations are 15. LABS: Sodium 120, potassium 4.9, chloride is 81, CO2 24, BUN 33, creatinine 1.1, glucose 114. Anion gap 15. Calcium 8.5. White count 18.88, hemoglobin 13.4, hematocrit 38.6, with a platelet count of 181,000. Her TSH is 0.46. ABGs, pH 7.44, CO2 39, PO2 79, bicarb 26.6. IVs: She currently has normal saline infusing at 85 mL an hour. She has had 1500 in, 877 out per Sher catheter and PleurX catheter. PHYSICAL EXAMINATION: General: This is a 71-year-old white female. She is resting in bed. She appears chronically ill. She is in no acute distress. Skin: Warm and dry. HEENT: Normocephalic, atraumatic. Conjunctiva is pale. She has JONI. Mucous membranes are dry. Neck: Supple. Trachea midline. No JVD. Cardiovascular: She is regular rate and rhythm. No appreciable murmur or gallop. Lungs: Diminished breath sounds right greater than left especially posterior. No increased work of breathing noted, equal rise. Remains on O2. Abdomen: Large, round, soft, nontender. Positive bowel sounds. Patient has a PleurX catheter coming out from under the right chest wall below the right breast. This is dry and intact, attached to gravity container. Genitourinary: Sher catheter is in place. She has adequate urine out. Extremities: Has 3 to 4+ lower extremity edema bilateral. Chronic venous stasis is noted. Neurological: Patient is awake to person. ASSESSMENT AND PLAN: Hyponatremia. Patient continues with normal saline infusing at 85 mL an hour. Her Aldactone has been stopped this morning. 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 She continues on her Megace. We will currently stop that. This is known as an adrenal suppressor. We will re- evaluate her sodiums that are ordered every 4 hours. We will give her 1 dose of Lasix 40 mg this evening secondary to chest x-ray showing recurrent pleural effusions. We will check labs in the a.m. She remains on 1.5 L fluid restriction. She is making adequate urine. I would like to thank you for allowing us to follow with this patient. Dictated by MJ Deleon for Shayan Roman MD cc: MJ Deleon MD
[2016-10-09] MEDS: LOVENOX SUBQ SCH (18:37)
--- NOTE | 2016-10-09 18:50 | CONSULTATION ---
DATE OF CONSULTATION: 10/09/2016 CONCLUSION: The patient has increasing right lower lobe pneumonia. He also has subcutaneous emphysema but this most likely is coming from the fact that he has a pleural catheter inserted. The patient also has multiple drug resistant Serratia urinary tract infection. I think this is asymptomatic and, therefore, does not require treatment. RECOMMENDATIONS: I agree with treating the patient with Zosyn. I have added vancomycin to provide coverage for a possible Methicillin-resistant Staph aureus component to the patient's pneumonia. PRESENT ILLNESS: I could not get any history from the patient. According to the chart, she was admitted to the hospital with shortness of breath. Her IgG and IgA are normal. Her blood gases show a pH of 7.44, PO2 of 79, pCO2 of 39. Creatinine is 1.1. GFR is 49. Chest x-ray shows subcutaneous emphysema and worsening right lower lobe infiltrate. Patient has had insertion of a right PleurX catheter because of a mass of right pleural effusion. The patient's CBC shows a white count of 18,880, hemoglobin 13.4, and platelet count 181,000. MEDICAL HISTORY: Positive for morbid obesity, COPD, sleep apnea, hypertension, hypothyroidism and cirrhosis of the liver. PAST SURGICAL HISTORY: Positive for 2 C-sections, rotator cuff repair, cholecystectomy, jejunal bypass for weight loss and thyroidectomy. SOCIAL HISTORY: The patient lives with her . She stopped smoking cigarettes over 3 years ago. She denies alcohol or illicit drug abuse. I am unable to obtain a history from the patient or a review of systems. She is somewhat delirious. PHYSICAL EXAMINATION: Vital Signs: Temperature is 97.9 degrees, pulse 95, respirations 15, blood pressure is 142/98. Patient's weight is listed as 257 pounds. General: This is an obese, elderly female who is somewhat delirious. She did not follow a request to move her extremities. She did talk but I could not understand what she was saying. Head. Ears, Nose, and Throat: No drainage noted from the nose or ears. The patient had fetor hepaticus. She also was edentulous. Neck: No meningismus. Lungs: Clear on the left side. There were diminished breath sounds on the right side. Thorax: Patient has a PleurX catheter present in the right chest. Abdomen: Soft and nontender. Neurologic: The patient was awake as mentioned above. She did not follow a request to move her extremities. There was no tremor. Thank you for the consultation. cc: Dereck Young MD
[2016-10-09] MEDS: VANCOMYCIN 1,800 MG in NS 250 ML IV SCH (22:01)
[2016-10-10] MEDS: ZOSYN 3.375 GM/NS 3.375 GM/50 ML IVPB IV SCH ×4 (02:41→20:40)
[2016-10-10 03:22] LABS: MANUAL DIFF NEEDED? NO
[2016-10-10 03:32] LABS: BASO% 0.1 % (0.0-0.8); EOS# 0.29 X1000 (0.0-0.7); EOS% 1.5 % (0.0-10.0); HEMATOCRIT 37.4 % (37.0-47.0); IMM GRAN# 0.13 X1000 (0.0-0.04); IMM GRAN% 0.7 % (0.0-0.5); LYMPH% 7.7 % (20.5-51.1); MCH 31.1 PG (27-31); MCHC 34.8 g/dL (33-37); MCV 89.5 FL (81-99); MONO# 1.53 X1000 (0.11-0.59); MONO% 7.8 % (1.7-9.3); NEUT% 82.2 % (42.2-75.2); PLT 178 X1000 (130-400); RBC 4.18 XMIL (4.2-5.4)
[2016-10-10 03:38] LABS: INR 1.2; PROTIME 12.8 Seconds (9.2-11.7)
[2016-10-10] MEDS: DUONEB (A & A) INH SCH ×6 (03:46→22:35)
[2016-10-10 03:59] LABS: ALBUMIN 2.6 g/dL (3.5-5.0); CALCIUM 8.5 mg/dL (8.8-10.2); DIRECT BILIRUBIN 0.9 mg/dL (0.00-0.20); POTASSIUM 4.8 mmol/L (3.5-5.1); TOTAL BILIRUBIN 3.32 mg/dL (0.20-1.00); TOTAL PROTEIN 5.6 g/dL (6.3-8.3)
[2016-10-10] MEDS: LACTULOSE PO SCH ×2 (06:40→16:39)
--- NOTE | 2016-10-10 07:34 | Diag Imaging Result Doc PS360 ---
EXAM: CHEST-PORTABLE HISTORY: dyspnea TECHNIQUE: Erect AP portable at 0550 COMMENT: There has been some improvement in the atelectasis or pneumonia over the lung bases since the previous study of 10/09/2016. There is still considerable soft tissue emphysema on the right but this is also diminished. No appreciable pneumothorax is present. IMPRESSION: Improving soft tissue emphysema and atelectasis. Electronically signed by Master Carrion 10/10/2016 7:32 AM
[2016-10-10] MEDS: SYMBICORT 160/4.5 MICROGM INHALER INH SCH ×2 (07:36→19:01)
[2016-10-10] MEDS: NUCYNTA PO SCH ×2 (08:04→21:27)
[2016-10-10] MEDS: VITAMIN D PO SCH (08:05)
[2016-10-10] MEDS: XIFAXAN PO SCH (08:05)
[2016-10-10] MEDS: DULCOLAX PR SCH (08:05)
[2016-10-10] MEDS: SYNTHROID PO SCH (08:05)
[2016-10-10] MEDS ORDERED: MEGACE LIQUID PO SCH (09:00)
[2016-10-10] MEDS ORDERED: D5W 250 ML IV ONE (09:00)
--- NOTE | 2016-10-10 09:01 | Diag Imaging Result Doc PS360 ---
EXAM: US ABDOMEN-COMPLETE HISTORY: elevated liver function test/ascites TECHNIQUE: Abdominal ultrasound COMMENT: There is ascites both in the subphrenic and subhepatic spaces. The liver contour is markedly nodular. Liver is hyperechoic in appearance. The aorta and inferior vena cava are not well demonstrated. The pancreas is obscured. The gallbladder is surgically absent. There is antegrade flow in the portal vein. There is no evidence of biliary dilatation, the common bile duct measuring 6 mm. The kidneys are without evidence of hydronephrosis or mass. The detail in the kidneys is markedly suboptimal. The spleen is not enlarged. Compared to 09/11/2016 there has been no appreciable change. IMPRESSION: Limited study. Ascites. cirrhosis. Electronically signed by Master Carrion 10/10/2016 8:59 AM
[2016-10-10] MEDS: NON-FORMULARY MED TOP SCH (12:18)
--- NOTE | 2016-10-10 13:48 | PROGRESS NOTE ---
DATE: 10/10/2016 SUBJECTIVE: Traci Hernández is a 71-year-old white female. She is resting in bed. She is in no acute distress. She denies chest pain. She does continue with positive lower back pain. VITAL SIGNS: Her most recent vital signs: Temperature 97.4 degrees, blood pressure 104/64, heart rate 101, respirations 20. She is on 3 L nasal cannula. Last recorded saturation 98%. She has had 2653 in; she has had 900 out per Sher catheter. LABS: Her last labs: Sodium 125, potassium 4.8, chloride is 83, CO2 26, BUN 37, creatinine 1.1, glucose 114, anion gap 12, calcium 8.5, albumin 2.6. Her ammonia level is 144. White count 19.56, hemoglobin 13, hematocrit 37.4 with a platelet count of 1780. Patient remains on normal saline at 85 mL an hour. She is due for another sodium level drawn at 10:30. OBJECTIVE: General: On physical exam, this is a 71-year-old white female. She appears chronically ill. She is in no acute distress. Skin: Warm and dry. HEENT: Normocephalic, atraumatic. Conjunctiva is pale. She has JONI. Mucous membranes are dry. Neck: Supple. Trachea midline. No JVD. Cardiovascular: Regular rate and rhythm. No appreciable murmur or gallop. Lungs: Diminished breath sounds posterior bases. Otherwise, clear to auscultation anterior. Equal excursion. Patient has PleurX tube coming out of the right chest wall from under her right breast. Dressing is dry and intact. Serous drainage to the container. Abdomen: Round, soft, nontender. Positive bowel sounds. Genitourinary: Sher catheter is in place. Adequate urine out. Extremities: Have 3+ to 4+ lower extremity edema bilateral. No clubbing or cyanosis. Chronic venous stasis. Neurological: She is alert to person and to place. ASSESSMENT AND PLAN: Hyponatremia. This has stabilized. We did have slight improvement after being given Lasix yesterday evening. Her normal saline continues to infuse at 85 mL an hour. Her Aldactone and her Megace have been stopped. We will continue to monitor her sodium levels every 4 hours. She remains on a 1.5 L fluid restriction, adequate urine out. No indications for intervention. I would to thank you for allowing us to follow with this patient. TIME SEEN: 0850 hours. Dictated by MJ Deleon for Shayan Roman MD cc: MJ Deleon MD
[2016-10-10] MEDS ORDERED: ALBUMIN 25% IV ONE (16:04)
[2016-10-10] MEDS ORDERED: LASIX IV ONE (16:04)
[2016-10-10] MEDS: LOVENOX SUBQ SCH (17:28)
[2016-10-10] MEDS: VANCOMYCIN 1,800 MG in NS 250 ML IV SCH (20:44)
[2016-10-11] MEDS: XIFAXAN PO SCH ×3 (01:28→21:39)
[2016-10-11] MEDS: LACTULOSE PO SCH ×4 (01:29→21:41)
[2016-10-11] MEDS: ZOSYN 3.375 GM/NS 3.375 GM/50 ML IVPB IV SCH ×4 (03:15→21:39)
[2016-10-11] MEDS: DUONEB (A & A) INH SCH ×6 (03:20→22:34)
--- NOTE | 2016-10-11 03:57 | PROGRESS NOTE ---
DATE: 10/10/2016 SUBJECTIVE: The patient is sitting up in a chair. She states that her back hurts and she wants to get back in bed. The patient does appear to be a little lethargic today. OBJECTIVE: Vital Signs: Temperature 97 degrees, blood pressure 130/84, heart rate 100, respirations 14, O2 saturation 93% on 3 L nasal cannula. General: This is a morbidly obese female, lying in a chair, in no acute distress. Head: Normocephalic, atraumatic. Heart: S1, S2. Normal. Lungs: Equal air entry bilaterally. No crackles, no rales. Abdomen: Positive bowel sounds. Soft, obese, nontender, nondistended. Extremities: 3+ edema in the lower extremities. LABORATORY STUDIES: White blood cell count 19, hemoglobin 13, hematocrit 37, platelets 178,000. INR 1.2. Sodium 122, potassium 4.8, chloride 83, CO2 26, BUN 37, creatinine 1.1 glucose 114, AST 39, ALT 49, alkaline phosphatase 203. Ammonia 144. ASSESSMENT AND PLAN: 1. Status post right PleurX catheter placement secondary to a massive right pleural effusion. Continue to monitor this closely. 2. Right lobe pneumonia. Continue on the current IV antibiotic regimen, as directed by Dr. Young. 3. Hyponatremia. Slowly improving. Nephrology is following. 4. Morbid obesity. Aware. 5. Cor pulmonale. Aware. 6. Hypothyroidism. Continue on Synthroid. 7. Hepatic encephalopathy. Will increase the frequency of the patient's lactulose and add rifaximin. 8. Bilateral lower extremity edema. Unchanged. Bilateral venous Dopplers have been ordered. 9. Liver cirrhosis. Aware. 10. Deep vein thrombosis prophylaxis. Continue on Lovenox. cc: Josi Dial MD
[2016-10-11 04:07] LABS: MANUAL DIFF NEEDED? NO
[2016-10-11 04:16] LABS: BASO% 0.1 % (0.0-0.8); EOS# 0.31 X1000 (0.0-0.7); EOS% 2.7 % (0.0-10.0); HEMATOCRIT 33.9 % (37.0-47.0); HEMOGLOBIN 11.6 g/dL (12.0-16.0); IMM GRAN# 0.07 X1000 (0.0-0.04); IMM GRAN% 0.6 % (0.0-0.5); LYMPH# 1.19 X1000 (1.2-3.4); LYMPH% 10.3 % (20.5-51.1); MCHC 34.2 g/dL (33-37); MCV 90.6 FL (81-99); MONO# 1.03 X1000 (0.11-0.59); MONO% 8.9 % (1.7-9.3); MPV 10.2 FL (7.4-10.4); NEUT% 77.4 % (42.2-75.2); PLT 102 X1000 (130-400); RBC 3.74 XMIL (4.2-5.4)
[2016-10-11 04:19] LABS: INR 1.21; PROTIME 12.9 Seconds (9.2-11.7)
[2016-10-11 04:36] LABS: ALBUMIN 3.3 g/dL (3.5-5.0); CALCIUM 8.2 mg/dL (8.8-10.2); POTASSIUM 4.3 mmol/L (3.5-5.1); TOTAL BILIRUBIN 3.67 mg/dL (0.20-1.00); TOTAL PROTEIN 5.7 g/dL (6.3-8.3)
[2016-10-11 04:45] LABS: FREE T4 1.54 ng/dL (0.93-1.70)
[2016-10-11] MEDS: SYMBICORT 160/4.5 MICROGM INHALER INH SCH ×2 (07:16→19:01)
--- NOTE | 2016-10-11 09:03 | PROGRESS NOTE ---
DATE: 10/10/2016 PRESENT ILLNESS: The patient has a bibasilar pneumonia. She also has a multiple-drug resistant Serratia urinary tract infection. I think this is asymptomatic and does not merit treatment. MEDICATIONS: The patient is receiving a combination of vancomycin and Zosyn. PHYSICAL EXAMINATION: Vital Signs: Temperature is 98.1 degrees, pulse 101, respirations 18, blood pressure 109/60. Generally: This is a chronically ill-appearing elderly female who is lethargic. Lungs: Clear to auscultation. Cardiovascular: Regular heart rate. Abdomen: Soft and nontender. Thorax: Patient has a PleurX catheter in place on the right side. Neurologic: Patient is lethargic. She did open her eyes to verbal stimuli. There was no tremor. LAB AND X-RAY STUDIES: The IgG and IgA levels are normal. Urine is growing a gram-negative ingrid. Ultrasound of the abdomen shows ascites and cirrhosis of the liver. Chest x-ray shows improved bibasilar infiltrates. CBC shows a white count of 19,560, hemoglobin 13 and platelet count a 178,000. Creatinine is 1.1. The GFR is 49. ASSESSMENT AND PLAN: Patient has pneumonia. The plan is to continue with the current antibiotics. COMORBIDITIES: She has COPD, sleep apnea, hypothyroidism, cirrhosis of the liver and morbid obesity. cc: Dereck Young MD
[2016-10-11 10:29] LABS: HEPATITIS PROFILE ACUTE SEE COMMENTS
[2016-10-11] MEDS: SYNTHROID PO SCH (12:10)
[2016-10-11] MEDS: LASIX IV SCH (12:10)
[2016-10-11] MEDS: DULCOLAX PR SCH (12:10)
[2016-10-11] MEDS: ALBUMIN 25% IV SCH (12:11)
[2016-10-11] MEDS: NUCYNTA PO SCH ×2 (12:12→21:39)
--- NOTE | 2016-10-11 13:41 | PROGRESS NOTE ---
DATE: 10/11/2016 SUBJECTIVE: Patient resting in bed. She has some back pain today that is chronic, but no other complaints. OBJECTIVE: Vital Signs: Temperature 97.4 degrees, pulse 101 respiratory rate 18, blood pressure 103/60. Intake 1.3 L. Output 2.8 L. General: Elderly chronically ill- appearing female, resting in bed. Awake, alert, no acute distress. HEENT: Normocephalic, atraumatic. Conjunctivae pale. JONI. Oral mucosa moist. Neck: Supple. Trachea midline. There is no JVD. Lying flat. Cardiovascular: Regular rate and rhythm without murmur or gallop. Pulmonary: Pleuravac noted. She has equal excursion. She is clear bilaterally with decreased breath sounds. Abdomen: Soft, with positive bowel sounds. : Not inspected. She has a Sher. Extremities: 3-4+ pretibial edema. No clubbing, cyanosis. Chronic venous stasis, is moving her extremities. Integumentary: Skin is warm and dry otherwise. LABORATORY DATA: WBC of 11.6, hemoglobin 11.6. Sodium 126. Creatinine 1.2. ASSESSMENT AND PLAN: Hyponatremia, stable. I will continue current fluids and hold Lasix. She has no indication for intervention at this time otherwise. Check labs in the morning. Dictated by MJ Salamanca for Shayan Roman MD cc: Shayan Roman MD [facility]
--- NOTE | 2016-10-11 16:04 | PROGRESS NOTE ---
DATE: 10/11/2016 PRESENT ILLNESS: The patient has bibasilar pneumonia. She also has a multiply drug resistant Serratia urinary tract infection which is asymptomatic. MEDICATIONS: The patient is on a combination of vancomycin and Zosyn for her pneumonia. Because the patient's urinary tract infection is asymptomatic, it does not merit treatment with antibiotics. PHYSICAL EXAMINATION: Vital Signs: Temperature is 98 degrees, pulse 104, respirations 14, blood pressure 124/71. General: This is an ill-appearing, middle-aged female who is in no acute distress. In general she looks ill, and she has generalized edema. Lungs: Clear to auscultation. Cardiovascular: Heart rate is regular. Abdomen: Soft and nontender. Legs: The patient has bilateral edema. LAB AND X-RAY: There is no new x-ray today. The lab shows a CBC with a white count of 11,600, hemoglobin 11.6, and platelet count 102,000. Creatinine is 1.2. The GFR is 44. Alkaline phosphatase is 169. Patient's urine is growing gram negative rods. ASSESSMENT AND PLAN: Patient has pneumonia. My plan is to continue antibiotic treatment of it. As mentioned above, I am not specifically going to treat the patient's urinary tract infection because it is asymptomatic. COMORBIDITIES: The patient has COPD, sleep apnea, hypothyroidism, cirrhosis of the liver, and morbid obesity. cc: Dereck Young MD
--- NOTE | 2016-10-11 17:09 | PROGRESS NOTE ---
DATE: 10/11/2016 SUBJECTIVE: The patient is resting comfortably in bed. She complains of back pain but otherwise has no other complaints. OBJECTIVE: Vital Signs: Temperature 98 degrees, blood pressure 124/71, heart rate 104, respirations 15, O2 saturations 100% on 4 L nasal cannula. General: This is a morbidly obese female lying in bed in no acute distress. Head: Normocephalic, atraumatic. Heart: S1, S2. Normal. Tachycardic. Lungs: Equal air entry bilaterally, no crackles, no rales. Diminished breath sounds at the right lung base. Abdomen: Positive bowel sounds. Soft, obese, nontender, nondistended. Extremities: 3 to 4+ edema, no cyanosis, no calf tenderness. Neuro: The patient is alert and oriented x3. LABS: White blood cell count 11, hemoglobin 11, hematocrit 33, platelets 102, 000. INR 1.21. Sodium 124, potassium 4.3, chloride 86, CO2 29, BUN 42, creatinine 1.2, glucose 99, total bilirubin 3.6. ASSESSMENT AND PLAN: 1. Status post right PleurX catheter placement secondary to a massive right pleural effusion. Stable. 2. Right pneumothorax. Stable. 3. Right lower lobe pneumonia. Continue on IV antibiotic therapy as directed by Dr. Young. 4. Hyponatremia. This is slowly improving. 5. Morbid obesity. Aware. 6. Hypothyroidism. Continue on Synthroid. 7. Hepatic encephalopathy. The patient's ammonia level is slowly coming down. Continue on lactulose and rifaximin. 8. Chronic lower extremity edema. The patient is currently on albumin plus Lasix. Will continue to watch the patient's urine output and creatinine closely. 9. Liver cirrhosis. Aware. 10. Deep vein thrombosis prophylaxis. Continue on Lovenox. cc: Josi Dial MD [facility]
[2016-10-11] MEDS: LOVENOX SUBQ SCH (21:39)
[2016-10-11] MEDS: VANCOMYCIN 1,800 MG in NS 250 ML IV SCH (23:39)
[2016-10-12] MEDS: ZOSYN 3.375 GM/NS 3.375 GM/50 ML IVPB IV SCH ×4 (03:07→20:53)
[2016-10-12] MEDS: DUONEB (A & A) INH SCH ×6 (03:28→22:42)
[2016-10-12 06:19] LABS: MANUAL DIFF NEEDED? NO
[2016-10-12 06:23] LABS: BASO% 0.3 % (0.0-0.8); EOS# 0.46 X1000 (0.0-0.7); EOS% 3.8 % (0.0-10.0); HEMATOCRIT 36.1 % (37.0-47.0); IMM GRAN# 0.05 X1000 (0.0-0.04); IMM GRAN% 0.4 % (0.0-0.5); LYMPH# 1.21 X1000 (1.2-3.4); MCH 30.8 PG (27-31); MCHC 33.2 g/dL (33-37); MCV 92.8 FL (81-99); MONO% 10.7 % (1.7-9.3); MPV 10.4 FL (7.4-10.4); NEUT% 74.8 % (42.2-75.2); PLT 85 X1000 (130-400); RBC 3.89 XMIL (4.2-5.4)
[2016-10-12 06:32] LABS: INR 1.12; PROTIME 11.9 Seconds (9.2-11.7)
[2016-10-12 06:41] LABS: ALBUMIN 3.2 g/dL (3.5-5.0); CALCIUM 8.7 mg/dL (8.8-10.2); TOTAL BILIRUBIN 3.47 mg/dL (0.20-1.00); TOTAL PROTEIN 6.2 g/dL (6.3-8.3)
[2016-10-12] MEDS: LACTULOSE PO SCH ×2 (07:00→14:59)
--- NOTE | 2016-10-12 07:32 | Diag Imaging Result Doc PS360 ---
EXAM: CHEST-PORTABLE HISTORY: pleural effusion/pneumonia TECHNIQUE: Portable COMPARISON: 10/10/2016 FINDINGS: There is a tiny right-sided pneumothorax. Subcutaneous air in the right neck and right axilla. The pneumothorax has not increased in size compared to the prior exam. Minimal increased markings in the right lung may simply be atelectasis. Left lung remains well expanded and clear. Heart is not enlarged. IMPRESSION: No interval change in the size of the tiny right-sided pneumothorax. Electronically signed by Coleman Gonzalez 10/12/2016 7:30 AM
[2016-10-12] MEDS: SYMBICORT 160/4.5 MICROGM INHALER INH SCH ×2 (07:45→18:53)
[2016-10-12] MEDS: NUCYNTA PO SCH ×2 (11:07→20:53)
[2016-10-12] MEDS: SYNTHROID PO SCH (11:08)
[2016-10-12] MEDS: XIFAXAN PO SCH ×2 (11:08→20:54)
[2016-10-12] MEDS ORDERED: NS 250 ML ONE (11:18)
--- NOTE | 2016-10-12 11:59 | PROGRESS NOTE ---
DATE: 10/12/2016 SUBJECTIVE: Patient resting in bed. She is wanting something to drink. She has numerous containers of fluid at her bedside. OBJECTIVE: Vital Signs: Temperature 98.7 degrees, pulse 104, respiratory rate 16, blood pressure 103/60, intake 1 L, output 1.4 L. General: Chronically ill-appearing, elderly female, resting in bed. Awake, alert, no acute distress. HEENT: Normocephalic, atraumatic. Conjunctivae pale. Oral mucosa moist. Neck: Supple. Trachea midline. Cardiovascular: Regular rate and rhythm. No murmur or gallop. Pulmonary: Pleur-Evac noted. Decreased breath sounds. Abdomen: Soft, positive bowel sounds. : Not inspected. Sher catheter noted. Extremities: 3 to 4+ pretibial edema. No clubbing, cyanosis. She has chronic venous stasis noted. Integumentary: Skin is thin, warm and dry with ecchymosis. LABORATORY DATA: WBC of 12.1, sodium 129, potassium 4, CO2 29, BUN 38, creatinine 1.2, albumin 3.2. ASSESSMENT AND PLAN: Hyponatremia, stable. Her IV fluids have been held. She is on a free water restriction. She can have fluids with electrolytes. Dictated by MJ Salamanca for Shayan Roman MD cc: Shayan Roman MD
[2016-10-12] MEDS: DULCOLAX PR SCH (14:02)
[2016-10-12] MEDS: LASIX IV SCH (14:04)
[2016-10-12] MEDS: ALBUMIN 25% IV SCH (14:05)
[2016-10-12] MEDS: INVANZ 1 GM/NS 1 GM/50 ML IVPB IV SCH (14:50)
--- NOTE | 2016-10-12 15:37 | PROGRESS NOTE ---
DATE: 10/12/2016 SUBJECTIVE: The patient is resting comfortably in bed. She ate all of her breakfast. Her lower extremity edema is slowly improving. The patient does have periods of confusion. OBJECTIVE: Vital Signs: Temperature 98.2 degrees, blood pressure 109/66, heart rate 111, respirations 18, O2 saturations 99% on 3 L nasal cannula. General: This is a morbidly obese female, lying in bed, in no acute distress. Head: Normocephalic, atraumatic. Heart: S1, S2. Normal. Tachycardic. Lungs: Diminished breath sounds at the bases. No crackles. No rales. Abdomen: Positive bowel sounds. Soft, obese, nontender, nondistended. Extremities: 2+ edema. No cyanosis. No calf tenderness. Neurologic: The patient is awake and alert. She is able to move all 4 extremities. LABS: White blood cell count 12, hemoglobin 12, hematocrit 36, platelets 85,000. Sodium 129, potassium 4, chloride 86, CO2 21, BUN 38, creatinine 1.2, glucose 113. Total bilirubin 3.4, AST 31, ALT 40, alkaline phosphatase 176. ASSESSMENT AND PLAN: 1. Hepatic encephalopathy. Improved. Continue on lactulose and rifaximin. 2. Status post right PleurX catheter placement secondary to massive right pleural effusion. Stable. 3. Right pneumothorax. Stable. 4. Right lobe pneumonia. Continue on IV antibiotic therapy. 5. Urinary tract infection secondary to ESBL positive E. coli. Will start the patient on Invanz. 6. Morbid obesity. Aware. 7. Hyponatremia. Improved. 8. Hypothyroidism. Continue on Synthroid. 9. Liver cirrhosis. Aware. 10. Thrombocytopenia. Will discontinue the Lovenox and check a heparin-induced antibody assay. 11. Chronic lower extremity edema. Improved. 12. The plan of care was discussed with the patient's son at the bedside. cc: Josi Dial MD
[2016-10-12] MEDS: VANCOMYCIN 1,800 MG in NS 250 ML IV SCH (21:55)
[2016-10-13] MEDS: ZOSYN 3.375 GM/NS 3.375 GM/50 ML IVPB IV SCH ×4 (03:30→21:19)
[2016-10-13] MEDS: DUONEB (A & A) INH SCH ×6 (03:40→23:24)
[2016-10-13] MEDS: INVANZ 1 GM/NS 1 GM/50 ML IVPB IV SCH (06:43)
[2016-10-13 06:49] LABS: MANUAL DIFF NEEDED? NO
[2016-10-13 07:00] LABS: BASO% 0.1 % (0.0-0.8); EOS# 0.34 X1000 (0.0-0.7); EOS% 3.8 % (0.0-10.0); HEMATOCRIT 31.1 % (37.0-47.0); IMM GRAN# 0.04 X1000 (0.0-0.04); IMM GRAN% 0.5 % (0.0-0.5); LYMPH# 0.81 X1000 (1.2-3.4); LYMPH% 9.2 % (20.5-51.1); MCH 30.6 PG (27-31); MCHC 32.2 g/dL (33-37); MCV 95.1 FL (81-99); MONO# 0.78 X1000 (0.11-0.59); MONO% 8.8 % (1.7-9.3); MPV 10.6 FL (7.4-10.4); NEUT% 77.6 % (42.2-75.2); PLT 68 X1000 (130-400); RBC 3.27 XMIL (4.2-5.4)
--- NOTE | 2016-10-13 07:17 | Diag Imaging Result Doc PS360 ---
EXAM: CHEST-1 VIEW HISTORY: resp failure TECHNIQUE: Portable upright AP COMPARISON: 10/12/2016 FINDINGS: The lungs are well expanded. Interval placement of a right-sided PICC line. Tip overlies the distal superior vena cava/right atrium. No pneumothorax identified. No pleural effusions. No consolidation. IMPRESSION: No congestive failure. Electronically signed by Coleman Gonzalez 10/13/2016 7:14 AM
[2016-10-13 07:36] LABS: INR 1.18; PROTIME 12.5 Seconds (9.2-11.7)
[2016-10-13] MEDS: SYMBICORT 160/4.5 MICROGM INHALER INH SCH ×2 (07:36→19:33)
[2016-10-13 08:10] LABS: ALBUMIN 3.2 g/dL (3.5-5.0); CALCIUM 8.3 mg/dL (8.8-10.2); POTASSIUM 3.2 mmol/L (3.5-5.1); TOTAL BILIRUBIN 2.01 mg/dL (0.20-1.00); TOTAL PROTEIN 5.1 g/dL (6.3-8.3)
[2016-10-13] MEDS: SYNTHROID PO SCH (09:42)
[2016-10-13] MEDS: NUCYNTA PO SCH ×2 (09:42→21:18)
[2016-10-13] MEDS: ALBUMIN 25% IV SCH ×2 (09:43→09:44)
[2016-10-13] MEDS: LASIX IV SCH (09:43)
[2016-10-13] MEDS: XIFAXAN PO SCH ×2 (09:43→21:18)
[2016-10-13] MEDS: LACTULOSE PO SCH (09:44)
[2016-10-13] MEDS ORDERED: IMODIUM PO ONE (10:33)
[2016-10-13] MEDS ORDERED: ALBUMIN 25% IV ONE (10:39)
[2016-10-13] MEDS ORDERED: POTASSIUM CHLORIDE 40 MEQ/SWI 40 MEQ/100 ML IVPB IV ONE (11:00)
[2016-10-13] MEDS ORDERED: NS 0 ML ONE (11:13)
--- NOTE | 2016-10-13 17:29 | PROGRESS NOTE ---
DATE: 10/13/2016 SUBJECTIVE: The patient has been having diarrhea as per the nursing staff. OBJECTIVE: Vital Signs: Temperature 98.1 degrees, blood pressure 106/67, heart rate 102, respirations 17, O2 saturations 97% on 2 L nasal cannula. General: This is a morbidly obese elderly female lying in bed, in no acute distress. Head: Normocephalic, atraumatic. Heart: S1, S2, normal. Regular rate and rhythm. Lungs: Equal air entry bilaterally. No crackles, no rales. Abdomen: Positive bowel sounds. Soft, obese, nontender, nondistended. Extremities: 2+ edema. Neurologic: The patient is alert, but with periods of confusion. She is able to move all 4 extremities. LABORATORY STUDIES: White blood cell count 8.8, hemoglobin 10, hematocrit 31, platelets 68,000. INR 1.1. Sodium 136, potassium 3.2 chloride 94, CO2 31, BUN 31, creatinine 1, glucose 109. Total bilirubin 2. Calcium 8.3. AST 20, ALT 24, alkaline phosphatase 115. Ammonia 31. ASSESSMENT AND PLAN: 1. Hepatic encephalopathy. Stable. Will hold the patient's dosage of lactulose today since she is having diarrhea. 2. Status post right PleurX catheter placement secondary to massive right pleural effusion. Stable. 3. Right pneumothorax. Stable. 4. Hyponatremia. Resolved. 5. Right lobe pneumonia. Continue on IV antibiotic therapy. 6. Urinary tract infection secondary to ESBL positive E. coli. Continue antibiotic therapy. 7. Hypothyroidism. Continue on Synthroid. 8. Liver cirrhosis. Aware. 9. Thrombocytopenia. The heparin-induced antibody assay is currently pending. The patient is currently off of heparin. 10. Chronic lower extremity edema. Improved. cc: Josi Dial MD
[2016-10-13] MEDS: VANCOMYCIN 1,800 MG in NS 250 ML IV SCH (22:05)
[2016-10-14] MEDS: DUONEB (A & A) INH SCH ×6 (03:43→23:10)
[2016-10-14] MEDS: ZOSYN 3.375 GM/NS 3.375 GM/50 ML IVPB IV SCH ×3 (04:29→14:54)
[2016-10-14 06:08] LABS: MANUAL DIFF NEEDED? NO
[2016-10-14 06:20] LABS: BASO% 0.1 % (0.0-0.8); EOS# 0.39 X1000 (0.0-0.7); EOS% 4.4 % (0.0-10.0); HEMATOCRIT 30.5 % (37.0-47.0); HEMOGLOBIN 9.9 g/dL (12.0-16.0); IMM GRAN# 0.03 X1000 (0.0-0.04); IMM GRAN% 0.3 % (0.0-0.5); LYMPH# 0.82 X1000 (1.2-3.4); LYMPH% 9.3 % (20.5-51.1); MCHC 32.5 g/dL (33-37); MCV 95.6 FL (81-99); MONO# 0.71 X1000 (0.11-0.59); MONO% 8.1 % (1.7-9.3); NEUT% 77.8 % (42.2-75.2); PLT 61 X1000 (130-400); RBC 3.19 XMIL (4.2-5.4)
[2016-10-14 06:32] LABS: AGAP 9; ALBUMIN 3.2 g/dL (3.5-5.0); ALKALINE PHOSPHATASE 102 U/L (32-104); BUN 23 mg/dL (8-22); CALCIUM 8.2 mg/dL (8.8-10.2); CHLORIDE 93 mmol/L (98-107); COSMO 271; GOT 27 U/L (10-30); GPT 23 U/L (10-36); POTASSIUM 3.3 mmol/L (3.5-5.1); SODIUM 133 mmol/L (136-145); TCO2 31 mmol/L (25-35); TOTAL BILIRUBIN 1.96 mg/dL (0.20-1.00); TOTAL PROTEIN 5.5 g/dL (6.3-8.3)
[2016-10-14] MEDS ORDERED: KLOR-CON PO ONE (06:56)
[2016-10-14] MEDS: SYMBICORT 160/4.5 MICROGM INHALER INH SCH ×2 (07:20→19:30)
[2016-10-14] MEDS: XIFAXAN PO SCH ×2 (10:30→22:07)
[2016-10-14] MEDS: SYNTHROID PO SCH (10:30)
[2016-10-14] MEDS: LACTULOSE PO SCH (10:30)
[2016-10-14] MEDS: NUCYNTA PO SCH ×2 (10:33→22:07)
[2016-10-14] MEDS: INVANZ 1 GM/NS 1 GM/50 ML IVPB IV SCH (10:37)
--- NOTE | 2016-10-14 10:52 | PROGRESS NOTE ---
DATE: 10/14/2016 SUBJECTIVE: Patient is sitting up in bed eating breakfast. OBJECTIVE: Vital Signs: Temperature 98.3 degrees, pulse 100, respiratory rate 17, blood pressure 128/87. Intake 972 mL. Output 1 L. General: Elderly female, sitting up in bed. She is awake and alert. HEENT: Normocephalic, atraumatic. Oral mucosa moist. Neck: Supple. Thick. Trachea midline. Cardiovascular: Regular rate and rhythm. No murmur or gallop. Pulmonary: She has noted. She has no rhonchi or wheeze noted. She has some decreased breath sounds. Abdomen: Obese, soft. Positive bowel sounds. : Not inspected. Has a Sher. Clear yellow urine noted. Extremities: Chronic lower extremity edema, 2+ noted. Vascular changes noted. She is moving extremities without difficulty. Integumentary: Skin is warm and dry otherwise. LAB DATA: WBC of 8.8, hemoglobin 9.9. Sodium 133, potassium 3.3, CO2 31, BUN 23, creatinine 0.9. ASSESSMENT AND PLAN: Hyponatremia, resolved. Her renal function is normal. She is euvolemic. We will sign off at this time. Please do not hesitate to call us if we can be of further assistance. Seen, data reviewed, discussed with Daniel Mcgee on 10/14/16. I agree with the above assessment and plan of care. rg Dictated by MJ Salamanca for Shayan Roman MD cc: Shayan Roman MD [facility]
--- NOTE | 2016-10-14 15:33 | PROGRESS NOTE ---
DATE: 10/14/2016 SUBJECTIVE: The patient is awake and alert. She is still unable to stand on her own without maximum assistance. OBJECTIVE: Vital Signs: Temperature 98 degrees, blood pressure 128/87, heart rate 100, respirations 17, O2 saturations 100% on 2 L nasal cannula. General: This is a morbidly obese female lying in bed in no acute distress. Head: Normocephalic, atraumatic. Heart: S1, S2 normal tachycardic. Lungs: Clear to auscultation bilaterally. No crackles. No rales. Abdomen: Positive bowel sounds. Soft, obese, nontender, nondistended. Extremities: 3+ edema. No cyanosis. No calf tenderness. Neurologic: The patient is alert and oriented x3. LABS: White blood cell count 8.8, hemoglobin 9.9, hematocrit 30, platelets 61,000. Sodium 133, potassium 3.3, chloride 93, CO2 31, BUN 23, creatinine 0.9, glucose 108, total bilirubin 1.9, calcium 8.2, AST 27, ALT 23, alkaline phosphatase 102, ammonia 41, albumin 3.2. ASSESSMENT AND PLAN: 1. Hepatic encephalopathy. Stable. The patient is more awake and alert today. Will continue on rifaximin. 2. Status post right PleurX catheter placement secondary to massive right pleural effusion. Stable. 3. Right pneumothorax. Stable. 4. Hyponatremia. Patient's sodium did drop a little bit today. We will continue to monitor this closely. 5. Right lobe pneumonia. Continue on IV antibiotic therapy. 6. Urinary tract infection secondary to extended spectrum beta-lactamase positive Escherichia coli. Continue on antibiotic therapy. 7. Hypothyroidism. Continue on Synthroid. 8. Liver cirrhosis. Aware. 9. Morbid obesity. Aware. 10. Thrombocytopenia. The patient's platelet count is low. Will await the results of the heparin- induced antibody assay. 11. Severe debility with generalized weakness. Continue with physical therapy. 12. Disposition. The patient will likely require rehab placement because she is unable to stand on her own without maximum assistance. cc: Josi Dial MD
[2016-10-14] MEDS: MYLICON PO PRN (15:48)
--- NOTE | 2016-10-14 17:22 | Extremity Venous Study ---
PROCEDURE NAME: Venous U/S Bilateral Legs - 10/09/2016 BILATERAL LOWER EXTREMITY VENOUS DUPLEX AND COLOR FLOW IMAGING STUDY: TECHNIQUE: Study performed using the [employer] vivid E9 ultrasound System with a 9 L-D transducer. REFERRING PHYSICIAN: Dr. Dial. YARN DRY ROOM WORKER: Renny Tan RVT. INDICATIONS: Swelling of the limb ICD-10 M79.89. INTERPRETATION: This is a limited study secondary to the patient's morbid obesity. The right common femoral vein and its branches, the deep and superficial femoral veins appeared not have a clot within them and had flow through them. The right popliteal vein and the deep veins below the right knee were imaged intermittently and again there was flow through them without evidence of thrombus. The superficial veins appeared not have any thrombus. The left common femoral vein and its branches, the deep and superficial femoral veins again were imaged. They had no evidence of thrombus this was a limited study the popliteal vein had no evidence of thrombus the deep veins below the left knee were difficult to visualize but no thrombus was seen. The superficial veins of the left lower extremity seemed to be compressible throughout. INTERPRETATION: This is a limited study secondary to the patient's morbid obesity but no acute deep or superficial venous thrombosis was identified. cc: MD Josi Armenta MD
--- NOTE | 2016-10-14 18:10 | PROGRESS NOTE ---
DATE: 10/14/2016 PRESENT ILLNESS: The patient has cleared pneumonia. Also she has cleared her drug resistant Serratia urinary tract infection. Her latest infection is an extended spectrum beta lactamase producing E. coli UTI. MEDICATIONS: I am going to stop vancomycin and Zosyn. The patient has been started on ertapenem to treat her E. coli urinary tract infection. PHYSICAL EXAMINATION: Vital Signs: Temperature is 98.1 degrees, pulse 95, respirations 16, blood pressure 108/67. Generally: This is a chronically ill-appearing, elderly female who is in no acute distress. Lungs: Clear to auscultation. Cardiovascular: Heart rate is regular. Abdomen: Distended but not tender. Extremities: Legs, she has bilateral edema. Neurologic: The patient is lethargic. LAB AND X-RAY: Chest x-ray shows clear lung rutledge. The patient's CBC shows a white count of 8,800, hemoglobin 9.9, and platelet count 61,000. Urine culture as mentioned above is growing an extended spectrum beta lactamase producing E. coli. Liver function studies are normal. Creatinine 0.9. GFR is greater than 60. ASSESSMENT AND PLAN: Patient has an Escherichia coli urinary tract infection. She is on ertapenem. Patient's comorbidities include sleep apnea, hypothyroidism, cirrhosis of the liver, and morbid obesity. cc: Dereck Young MD
[2016-10-15] MEDS: DUONEB (A & A) INH SCH ×6 (03:41→23:45)
[2016-10-15] MEDS: INVANZ 1 GM/NS 1 GM/50 ML IVPB IV SCH (06:37)
[2016-10-15 06:48] LABS: MANUAL DIFF NEEDED? NO
[2016-10-15 06:54] LABS: BASO% 0.2 % (0.0-0.8); EOS# 0.45 X1000 (0.0-0.7); EOS% 4.3 % (0.0-10.0); HEMOGLOBIN 10.3 g/dL (12.0-16.0); IMM GRAN# 0.03 X1000 (0.0-0.04); IMM GRAN% 0.3 % (0.0-0.5); LYMPH# 0.95 X1000 (1.2-3.4); LYMPH% 9.1 % (20.5-51.1); MCH 30.7 PG (27-31); MCHC 32.2 g/dL (33-37); MCV 95.2 FL (81-99); MONO# 0.75 X1000 (0.11-0.59); MONO% 7.2 % (1.7-9.3); MPV 10.8 FL (7.4-10.4); NEUT% 78.9 % (42.2-75.2); PLT 65 X1000 (130-400); RBC 3.36 XMIL (4.2-5.4)
[2016-10-15 07:22] LABS: AGAP 9; ALBUMIN 3.2 g/dL (3.5-5.0); ALKALINE PHOSPHATASE 107 U/L (32-104); BUN 20 mg/dL (8-22); CALCIUM 8.3 mg/dL (8.8-10.2); CHLORIDE 94 mmol/L (98-107); COSMO 271; GOT 29 U/L (10-30); GPT 27 U/L (10-36); POTASSIUM 3.7 mmol/L (3.5-5.1); SODIUM 134 mmol/L (136-145); TCO2 31 mmol/L (25-35); TOTAL BILIRUBIN 1.64 mg/dL (0.20-1.00); TOTAL PROTEIN 5.2 g/dL (6.3-8.3)
[2016-10-15] MEDS: SYMBICORT 160/4.5 MICROGM INHALER INH SCH ×2 (07:32→19:10)
[2016-10-15] MEDS: SYNTHROID PO SCH (09:40)
[2016-10-15] MEDS: XIFAXAN PO SCH ×2 (09:40→22:31)
[2016-10-15] MEDS: LACTULOSE PO SCH (09:40)
[2016-10-15] MEDS: NUCYNTA PO SCH ×2 (09:44→22:31)
[2016-10-15] MEDS ORDERED: SODIUM PHOSPHATE 30 MMOL in NS 250 ML IV ONE (10:04)
--- NOTE | 2016-10-15 18:22 | PROGRESS NOTE ---
DATE: 10/15/2016 PRESENT ILLNESS: Currently the patient is being treated for an extended spectrum beta lactamase producing E. coli. MEDICATIONS: This is the 2nd day of treatment with ertapenem for the patient's urinary tract infection. PHYSICAL EXAMINATION: Vital Signs: Temperature is 98.4 degrees, pulse 99, respirations 20, blood pressure 107/60. General: This is an ill-appearing, elderly female. Abdomen: Has become quite distended but it is not tender. Lungs: Clear to auscultation. Cardiovascular: Heart tones were regular. Extremities: Legs, there was bilateral edema but no erythema. LAB AND X-RAY: There is no new radiographic study. The CBC today shows a white count of 10,440, hemoglobin 10.3, and platelet count 65,000. Creatinine is 0.8. GFR is greater than 60. Stool for Clostridium difficile antigen and toxin is negative. ASSESSMENT AND PLAN: For now I will keep going with the ertapenem for the patient's Escherichia coli urinary tract infection. The patient's comorbidities include sleep apnea, hypothyroidism, cirrhosis of the liver, and morbid obesity. cc: Dereck Young MD
--- NOTE | 2016-10-16 03:46 | PROGRESS NOTE ---
DATE: 10/15/2016 SUBJECTIVE: The patient is resting comfortably in bed, she is awake and alert. Her diarrhea has improved. OBJECTIVE: Vital Signs: Temperature 98.4 degrees, blood pressure 107/60, heart rate 99, respirations 20, O2 saturations 98% on 2 L nasal cannula. General: This is a morbidly obese female lying in bed in no acute distress. Head: Normocephalic, atraumatic. Heart: S1, S2. Normal. Regular rate and rhythm. Lungs: Clear to auscultation bilaterally. No crackles. No rales. Abdomen: Positive bowel sounds. Soft, obese, nontender, nondistended. Extremities: 3+ edema. No cyanosis. No calf tenderness. Neurologic: The patient is alert and oriented x3. LABS: White blood cell count 10, hemoglobin 10, hematocrit 32, platelets 65, 000. Sodium 134, potassium 3.7, chloride 94, CO2 31, BUN 20, creatinine 0.8, glucose 104, AST 29 , ALT 27, alkaline phosphatase 107, albumin 3.2. ASSESSMENT AND PLAN: 1. Hepatic encephalopathy. Continue on lactulose plus rifaximin. This is currently stable. 2. Status post right Pleurx catheter placement secondary to massive right pleural effusion. Stable. 3. Hyponatremia. Stable. 4. Right lobe pneumonia. Continue on IV antibiotic therapy. 5. Urinary tract infection secondary to extended spectrum beta-lactamase Escherichia coli. Continue on ertapenem. 6. Hypothyroidism. Continue on Synthroid. 7. Liver cirrhosis. Aware. 8. Suspected cor pulmonale. Aware. 9. Morbid obesity. Aware. 10. Thrombocytopenia. Stable. 11. Severe debility with generalized weakness. The patient will likely require rehab placement. She is unable to stand on her own. 12. Disposition. The patient will be discharged to rehab once cleared by Dr. Dereck Young. cc: Josi Dial MD [facility]
[2016-10-16] MEDS: DUONEB (A & A) INH SCH ×6 (03:53→23:18)
[2016-10-16 06:20] LABS: MANUAL DIFF NEEDED? NO
[2016-10-16 06:29] LABS: BASO% 0.4 % (0.0-0.8); EOS# 0.48 X1000 (0.0-0.7); EOS% 4.3 % (0.0-10.0); HEMATOCRIT 32.1 % (37.0-47.0); HEMOGLOBIN 10.3 g/dL (12.0-16.0); IMM GRAN# 0.04 X1000 (0.0-0.04); IMM GRAN% 0.4 % (0.0-0.5); LYMPH# 1.06 X1000 (1.2-3.4); LYMPH% 9.4 % (20.5-51.1); MCH 30.7 PG (27-31); MCHC 32.1 g/dL (33-37); MCV 95.8 FL (81-99); MONO# 1.08 X1000 (0.11-0.59); MONO% 9.6 % (1.7-9.3); MPV 10.9 FL (7.4-10.4); NEUT% 75.9 % (42.2-75.2); PLT 67 X1000 (130-400); RBC 3.35 XMIL (4.2-5.4)
[2016-10-16] MEDS: INVANZ 1 GM/NS 1 GM/50 ML IVPB IV SCH (06:29)
[2016-10-16 06:56] LABS: AGAP 12; ALBUMIN 3.1 g/dL (3.5-5.0); ALKALINE PHOSPHATASE 119 U/L (32-104); BUN 20 mg/dL (8-22); CHLORIDE 93 mmol/L (98-107); COSMO 275; GOT 30 U/L (10-30); GPT 32 U/L (10-36); POTASSIUM 3.8 mmol/L (3.5-5.1); SODIUM 135 mmol/L (136-145); TCO2 30 mmol/L (25-35); TOTAL BILIRUBIN 1.01 mg/dL (0.20-1.00); TOTAL PROTEIN 5.3 g/dL (6.3-8.3)
--- NOTE | 2016-10-16 07:21 | Diag Imaging Result Doc PS360 ---
EXAM: CHEST-PORTABLE INDICATION: abnormal exam TECHNIQUE: One view COMPARISON: 10/13/2016 FINDINGS: Right PICC line is stable. Inspiration is suboptimal. No new consolidations are appreciated. Cardiac silhouette is stable. IMPRESSION: Stable chest. Electronically signed by Efrain Yousif 10/16/2016 7:19 AM
[2016-10-16] MEDS: SYMBICORT 160/4.5 MICROGM INHALER INH SCH ×2 (07:33→19:37)
[2016-10-16] MEDS: NUCYNTA PO SCH ×2 (08:24→21:15)
[2016-10-16] MEDS: LACTULOSE PO SCH (08:25)
[2016-10-16] MEDS: XIFAXAN PO SCH ×2 (08:25→21:15)
[2016-10-16] MEDS: SYNTHROID PO SCH (08:25)
[2016-10-16] MEDS: MYLICON PO PRN (12:39)
--- NOTE | 2016-10-16 14:05 | PROGRESS NOTE ---
DATE: 10/16/2016 SUBJECTIVE: The patient is resting comfortably in bed. No acute events noted overnight. OBJECTIVE: Vital Signs: Temperature 97.6 degrees, blood pressure 118/68, heart rate 97, respirations 18, O2 saturations 94% on 2 L nasal cannula. General: This is a morbidly obese female, lying in bed, in no acute distress. Head: Normocephalic, atraumatic. Heart: S1, S2 normal. Tachycardic. Lungs: Equal air entry bilaterally. No crackles, no rales. Abdomen: Positive bowel sounds. Soft, obese, nontender, nondistended. Extremities: There is 3 to 4+ edema. Neurologic: The patient is alert and oriented x3. LABS: White blood cell count 11, hemoglobin 10, hematocrit 32, platelets 67, 000. Sodium 135, potassium 3.8, chloride 93, CO2 30, BUN 20, creatinine 0.8, glucose 131, calcium 8.06, total bilirubin 1.00. AST 30, ALT 32, alkaline phosphatase 119, and ammonia 81, albumin 3.1. ASSESSMENT AND PLAN: 1. Hepatic encephalopathy. The patient's ammonia level is elevated today at 81. Continue on rifaximin and lactulose. It was reported that the patient has had 3 bowel movements yesterday. 2. Status post right PleurX catheter placement, secondary to a massive right pleural effusion. Stable. 3. Hyponatremia. Resolved. 4. Right lower lobe pneumonia. Resolved. 5. Urinary tract infection secondary to extended spectrum beta-lactamase Escherichia coli. Continue on IV ertapenem as directed by Dr. Young. 6. Hypothyroidism. Continue on Synthroid. 7. Liver cirrhosis. Aware. 8. Suspected cor pulmonale. Aware. 9. Morbid obesity. Aware. 10. Thrombocytopenia. Stable. 11. Severe debility with generalized weakness. Survey Analyst is working on rehab placement for the patient. DISPOSITION: The patient will be discharged to rehab once cleared by Dr. Young. cc: Josi Dial MD [facility]
--- NOTE | 2016-10-16 23:41 | PROGRESS NOTE ---
DATE: 10/16/2016 PRESENT ILLNESS: The patient has an extended spectrum beta lactamase producing Escherichia coli urinary tract infection. MEDICATIONS: This is day 3 of treatment with ertapenem for the infection. PHYSICAL EXAMINATION: Vital Signs: Temperature is 98 degrees, pulse 99, respirations 16, blood pressure 96/63. Generally: This is a chronically ill-appearing, elderly female. Lungs: Clear to auscultation. Cardiovascular: Regular heart rate. Neck: No meningismus. Abdomen: Quite distended. It is enlarged, but it is not tender. Extremities: Patient has bilateral leg edema without erythema. Thorax: The patient has her Pleurx catheter in place. LABORATORY AND X-RAY: The patient's CBC shows a white count of 11,230, hemoglobin 10.3, and platelet count 67,000. The patient's creatinine is 0.8. GFR is greater than 60. Liver function studies are normal. There are no new radiographic studies. ASSESSMENT AND PLAN: 1. Patient has urinary tract infection. My plan is to continue ertapenem. 2. Comorbidities include sleep apnea, hypothyroidism, cirrhosis of the liver and morbid obesity. cc: Dereck Young MD
[2016-10-17] MEDS: DUONEB (A & A) INH SCH ×6 (04:10→23:05)
[2016-10-17] MEDS: INVANZ 1 GM/NS 1 GM/50 ML IVPB IV SCH (06:18)
[2016-10-17 06:29] LABS: MANUAL DIFF NEEDED? NO
[2016-10-17 06:52] LABS: BASO% 0.3 % (0.0-0.8); EOS% 3.9 % (0.0-10.0); HEMATOCRIT 33.1 % (37.0-47.0); HEMOGLOBIN 10.6 g/dL (12.0-16.0); IMM GRAN# 0.03 X1000 (0.0-0.04); IMM GRAN% 0.3 % (0.0-0.5); LYMPH# 1.13 X1000 (1.2-3.4); LYMPH% 10.9 % (20.5-51.1); MCH 31.1 PG (27-31); MCV 97.1 FL (81-99); MONO% 6.7 % (1.7-9.3); MPV 10.5 FL (7.4-10.4); NEUT% 77.9 % (42.2-75.2); PLT 71 X1000 (130-400); RBC 3.41 XMIL (4.2-5.4)
[2016-10-17 06:58] LABS: AGAP 10; ALBUMIN 3.2 g/dL (3.5-5.0); ALKALINE PHOSPHATASE 121 U/L (32-104); BUN 21 mg/dL (8-22); CALCIUM 8.3 mg/dL (8.8-10.2); CHLORIDE 88 mmol/L (98-107); COSMO 261; GOT 32 U/L (10-30); GPT 35 U/L (10-36); POTASSIUM 4.4 mmol/L (3.5-5.1); SODIUM 127 mmol/L (136-145); TCO2 29 mmol/L (25-35); TOTAL BILIRUBIN 0.87 mg/dL (0.20-1.00); TOTAL PROTEIN 5.8 g/dL (6.3-8.3)
[2016-10-17] MEDS: SYMBICORT 160/4.5 MICROGM INHALER INH SCH ×2 (08:41→19:52)
[2016-10-17] MEDS: LACTULOSE PO SCH (08:48)
[2016-10-17] MEDS: NUCYNTA PO SCH ×2 (08:50→21:36)
[2016-10-17] MEDS: MYLICON PO PRN ×3 (08:50→17:38)
[2016-10-17] MEDS: SYNTHROID PO SCH (08:51)
[2016-10-17] MEDS: XIFAXAN PO SCH ×2 (08:51→21:36)
[2016-10-17] MEDS: VITAMIN D PO SCH (08:56)
[2016-10-17] MEDS: NON-FORMULARY MED TOP SCH (14:43)
[2016-10-17] MEDS: CALMOSEPTINE OINTMENT TOP PRN (15:08)
--- NOTE | 2016-10-17 16:13 | PROGRESS NOTE ---
DATE: 10/17/2016 PRESENT ILLNESS: The patient has an extended spectrum beta lactamase producing E coli urinary tract infection, which was symptomatic. MEDICATIONS: Patient has been receiving ertapenem now for 4 days. PHYSICAL EXAMINATION: Vital Signs: Temperature is 98.4 degrees, pulse 98, respirations 16, blood pressure 121/66. General: This is an ill-appearing, elderly female. She is lethargic and she is very weak. Lungs: Clear to auscultation. Cardiovascular: Heart rate is regular. Abdomen: Very distended, but not tender. Extremities: Patient has bilateral leg edema. There is no erythema. Thorax: The patient continues to have her PleurX catheter in place on the right side. LAB AND X-RAY: The patient's CBC today shows a white count of 10,380, hemoglobin 10.6, and platelet count 71,000. Patient's creatinine is 0.8 with a GFR of greater than 60. ASSESSMENT AND PLAN: Patient has urinary tract infection, which I am going to treat with ertapenem for a total of 14 days because the UTI was symptomatic. COMORBIDITY: The patient's comorbidity is that she has advanced cirrhosis of the liver and sleep apnea, hypothyroidism and morbid obesity. cc: Dereck Young MD
--- NOTE | 2016-10-17 18:03 | PROGRESS NOTE ---
DATE: 10/17/2016 SUBJECTIVE: This patient is resting comfortably in bed. She has been complaining of abdominal discomfort, she has mild abdominal distention but bowel sounds are present and she has been having bowel movements. Her sodium decreased from 135 to 127. I am not going to make any changes today, I will keep an eye on this. She has ESBL UTI and we are treating this patient with ertapenem for a total of 14 days. OBJECTIVE: Vital Signs: Temperature 98.4 degrees, pulse 98, respiratory rate 16, blood pressure 121/66, oxygen saturation 95 on 2 L of nasal cannula. HEENT: Normocephalic. No trauma. PERRLA. Neck: Supple. No JVD. No masses. Central trachea. Chest: Coarse breath sounds bilaterally. Some crackles at the right lower lung. Abdomen: Soft, obese, mildly distended. Positive bowel sounds. There is a big abdominal wall hernia. Extremities: 3+ lower extremity edema. Neurological: The patient is alert and oriented x3. No focal deficits. Severe weakness. LABORATORY: WBC 10.3, hemoglobin 10.6, hematocrit 33.1, platelets 71,000. Sodium 127, potassium 4.4, chloride 88, bicarbonate 29, BUN 21, creatinine 0.8, glucose 153, calcium 8.3, albumin 3.2. ASSESSMENT AND PLAN: 1. Urinary tract infection secondary to extended spectrum beta-lactamase Escherichia coli. Continue with IV ertapenem for a total of 14 days as per Infectious Disease Department. 2. Massive right pleural effusion status post right Pleurx catheter placement, this patient still has this catheter. Will monitor. 3. Hyponatremia. Her sodium decreased from 135 to 127, I am not going to make any changes today. I will keep an eye on this. If the sodium is still is still about the same or lower than that I will call nephrology department to take a look on this patient. 4. Liver cirrhosis with previous hepatic encephalopathy, continue with rifaximin and lactulose. Today this patient is alert and oriented x3 and she has been having bowel movements. 5. Right lower lobe pneumonia resolved. 6. Hypothyroidism. Continue with Synthroid. 7. Suspected cor pulmonale. Aware. 8. Thrombocytopenia probably related to medications, we will keep an eye on this. Will monitor. 9. Morbid obesity. Aware. 10. Severe physical deconditioning. Continue physical therapy. dining services director is working on rehab center placement for this patient. cc: Fahad Dickey MD
[2016-10-18] MEDS: DUONEB (A & A) INH SCH ×6 (03:42→23:18)
[2016-10-18 05:45] LABS: MANUAL DIFF NEEDED? NO
[2016-10-18 05:51] LABS: BASO% 0.7 % (0.0-0.8); EOS% 2.9 % (0.0-10.0); HEMATOCRIT 31.2 % (37.0-47.0); IMM GRAN# 0.03 X1000 (0.0-0.04); IMM GRAN% 0.3 % (0.0-0.5); LYMPH# 0.95 X1000 (1.2-3.4); LYMPH% 9.2 % (20.5-51.1); MCH 30.8 PG (27-31); MCHC 32.1 g/dL (33-37); MONO% 7.8 % (1.7-9.3); MPV 10.7 FL (7.4-10.4); NEUT% 79.1 % (42.2-75.2); PLT 77 X1000 (130-400); RBC 3.25 XMIL (4.2-5.4)
[2016-10-18 06:05] LABS: AGAP 9; BUN 20 mg/dL (8-22); CALCIUM 8.5 mg/dL (8.8-10.2); CHLORIDE 89 mmol/L (98-107); COSMO 266; POTASSIUM 4.8 mmol/L (3.5-5.1); SODIUM 130 mmol/L (136-145); TCO2 32 mmol/L (25-35)
[2016-10-18] MEDS: INVANZ 1 GM/NS 1 GM/50 ML IVPB IV SCH (06:20)
[2016-10-18] MEDS: MYLICON PO PRN ×2 (08:51→13:38)
[2016-10-18] MEDS: XIFAXAN PO SCH ×2 (08:51→22:36)
[2016-10-18] MEDS: SYNTHROID PO SCH (08:52)
[2016-10-18] MEDS: NUCYNTA PO SCH ×2 (08:52→22:36)
[2016-10-18] MEDS: SYMBICORT 160/4.5 MICROGM INHALER INH SCH ×2 (11:02→19:47)
[2016-10-18] MEDS: LACTULOSE PO SCH (11:46)
[2016-10-18] MEDS: ANUSOL-HC SUPP PR SCH ×2 (13:38→22:35)
--- NOTE | 2016-10-18 13:44 | PROGRESS NOTE ---
DATE: 10/18/2016 PRESENT ILLNESS: The patient is being treated for an extended spectrum beta lactamase producing symptomatic E coli urinary tract infection. MEDICATIONS: The patient is been on ertapenem now for 5 days. PHYSICAL EXAMINATION: Vital Signs: Temperature is 98.2 degrees, pulse 95, respirations 20, blood pressure 116/66. General: This is an obese, elderly female who is lethargic. Ear, nose and throat: No drainage noted from the nose or ears. Neck: No meningismus. Lungs: Clear to auscultation. Cardiovascular: Heart rate is regular. Abdomen: Protuberant, soft, but not tender. There is an abdominal wall hernia present. Thorax: Patient has a PleurX catheter still in place. LAB AND X-RAY: Creatinine is 0.8. GFR is greater than 60. CBC shows a white count of 10,290, hemoglobin 10 and platelet count 77,000. There is no new radiographic study. ASSESSMENT AND PLAN: Patient has a urinary tract infection for which she will receive 14 days worth of treatment with ertapenem. COMORBIDITIES: Include cirrhosis of the liver, sleep apnea, hypothyroidism and morbid obesity. cc: Dereck Young MD
--- NOTE | 2016-10-18 15:07 | PROGRESS NOTE ---
DATE: 10/18/2016 SUBJECTIVE: This patient is resting comfortably in bed. She states that she is feeling better. She still has severe weakness and abdominal discomfort. She has been having more than 2 bowel movements per day. Apparently, she has some pain/discomfort at the level of her rectal area. I will use Anusol suppository for 3 days. She has ESBL UTI and we are treating this patient with ertapenem for a total of 14 days. OBJECTIVE: Vital Signs: Temperature 97.3 degrees, pulse 96, respiratory rate 18, blood pressure 116/67, and oxygen saturation 99% on 2L nasal cannula. HEENT: Head normocephalic. No trauma. PERRLA. Neck: Supple. No JVD. No masses. Central trachea. Chest: Coarse breath sounds bilaterally. Some crackles at the level of the right lower lung. Abdomen: Soft, obese, mildly distended. Positive bowel sounds. There is a big abdominal wall hernia. Extremities: Lower extremity edema 3+. Neurologic: The patient is alert and oriented x3. No focal deficits. Severe weakness. LABORATORY: WBC 10.2, hemoglobin 10, hematocrit 31.2, and platelets 77,000. Sodium 130, potassium 4.8, chloride 89, bicarbonate 32, BUN 20, creatinine 0.8, glucose 138, calcium 8.5. ASSESSMENT AND PLAN: 1. Urinary tract infection secondary to extended-spectrum beta lactamase Escherichia coli. Continue with IV ertapenem for a total of 14 days, as per Infectious Disease Department. 2. Massive right pleural effusion, status post right PleurX catheter placement. This patient still has this catheter. She is still draining from it. 3. Hyponatremia. Sodium increased from 127 to 130. No changes at this moment. We will continue to monitor. 4. Liver cirrhosis with previous hepatic encephalopathy. Continue with rifaximin and lactulose. She has been having bowel movements daily, at least two. 5. Right lower lobe pneumonia. Resolved. 6. Hypothyroidism. Continue with Synthroid. 7. Rectal discomfort. I will start this patient on Anusol for 3 days. 8. Thrombocytopenia. Stable. Continue to monitor. 9. Morbid obesity. Aware. 10. Severe physical deconditioning. Continue with physical therapy. director of cardiopulmonary services is working on rehab center placement/LTAC for this patient. cc: Fahad Dickey MD
[2016-10-19] MEDS: DUONEB (A & A) INH SCH ×6 (04:00→23:05)
[2016-10-19 06:24] LABS: MANUAL DIFF NEEDED? NO
[2016-10-19 06:31] LABS: BASO% 0.3 % (0.0-0.8); EOS# 0.22 X1000 (0.0-0.7); EOS% 2.2 % (0.0-10.0); HEMATOCRIT 30.6 % (37.0-47.0); HEMOGLOBIN 9.7 g/dL (12.0-16.0); IMM GRAN# 0.02 X1000 (0.0-0.04); IMM GRAN% 0.2 % (0.0-0.5); LYMPH# 1.07 X1000 (1.2-3.4); LYMPH% 10.7 % (20.5-51.1); MCH 30.5 PG (27-31); MCHC 31.7 g/dL (33-37); MCV 96.2 FL (81-99); MONO# 0.67 X1000 (0.11-0.59); MONO% 6.7 % (1.7-9.3); MPV 10.8 FL (7.4-10.4); NEUT% 79.9 % (42.2-75.2); PLT 79 X1000 (130-400); RBC 3.18 XMIL (4.2-5.4)
[2016-10-19 06:45] LABS: AGAP 9; BUN 19 mg/dL (8-22); CALCIUM 8.4 mg/dL (8.8-10.2); CHLORIDE 94 mmol/L (98-107); COSMO 274; POTASSIUM 4.9 mmol/L (3.5-5.1); SODIUM 136 mmol/L (136-145); TCO2 33 mmol/L (25-35)
[2016-10-19] MEDS: SYMBICORT 160/4.5 MICROGM INHALER INH SCH ×2 (07:33→19:34)
[2016-10-19] MEDS: SYNTHROID PO SCH (08:08)
[2016-10-19] MEDS: NUCYNTA PO SCH ×2 (08:08→21:31)
[2016-10-19] MEDS: XIFAXAN PO SCH ×2 (08:08→21:32)
[2016-10-19] MEDS: LACTULOSE PO SCH (08:08)
[2016-10-19] MEDS: ANUSOL-HC SUPP PR SCH ×3 (08:09→21:32)
[2016-10-19] MEDS: INVANZ 1 GM/NS 1 GM/50 ML IVPB IV SCH (08:09)
[2016-10-19] MEDS: MYLICON PO PRN (08:50)
--- NOTE | 2016-10-19 09:08 | Diag Imaging Result Doc PS360 ---
CHEST-PORTABLE - 10/19/2016 INDICATION: abnormal exam TECHNIQUE: COMPARISON: 10/16/2016 FINDINGS: Stable right PICC line in good position. Stable low lung volumes. No significant infiltrates. Heart size remains normal. There is decrease in the soft tissue gas at the right chest wall. IMPRESSION: Improvement from prior with no new abnormality. Electronically signed by Dale Guardado 10/19/2016 9:05 AM
[2016-10-19] MEDS: CALMOSEPTINE OINTMENT TOP PRN (11:10)
--- NOTE | 2016-10-19 13:23 | PROGRESS NOTE ---
DATE: 10/19/2016 SUBJECTIVE: This patient is resting comfortably in bed. She states that she is feeling better. She is tolerating p.o. She still has severe weakness. Her abdominal discomfort is better. She has ESBL UTI and we are treating this patient with ertapenem for a total of 14 days. OBJECTIVE: Vital Signs: Temperature 98.4 degrees, pulse 98, respiratory rate 14, blood pressure 111/69, oxygen saturation 96 on 2 L of nasal cannula. HEENT: Normocephalic. No trauma. PERRLA. Neck: Supple. No JVD. No masses. Central trachea. Chest: Coarse breath sounds bilaterally. Some crackles at the level of the right lower lobe. Abdomen: Soft, nontender, obese, mildly distended. Positive bowel sounds. There is a big abdominal wall hernia. Extremities: Lower extremity edema 3+. Neurological: The patient is alert and oriented x3. No focal deficits, severe weakness. LABORATORY: WBC 10, hemoglobin 9.7, hematocrit 30.6, platelets 79,000. Sodium 136, potassium 4.9, chloride 94, bicarbonate 33, BUN 19, creatinine 0.6, glucose 93, calcium 8.4. ASSESSMENT AND PLAN: 1. Urinary tract infection secondary to extended spectrum beta-lactamase Escherichia coli. Continue with IV ertapenem for a total of 14 days as per Infectious Disease Department. 2. Massive right pleural effusion status post right Pleurx catheter placement. This patient still has this catheter and she is still draining fluid from it. 3. Hyponatremia resolved. 4. Liver cirrhosis with previous hepatic encephalopathy. Continue with rifaximin and lactulose. She has been having a daily bowel movements. 5. Right lower lobe pneumonia resolved. 6. Hypothyroidism. Continue with Synthroid. 7. Rectal discomfort. I started this patient with Anusol yesterday, she is feeling much better today. 8. Thrombocytopenia stable. 9. Morbid obesity. Aware. 10. Severe physical deconditioning. Continue with physical therapy. director emergency services is working on rehab center placement/LTAC for this patient. cc: Fahad Dickey MD
[2016-10-20] MEDS: DUONEB (A & A) INH SCH ×6 (03:52→23:01)
[2016-10-20 06:30] LABS: MANUAL DIFF NEEDED? NO
[2016-10-20 06:40] LABS: BASO% 0.4 % (0.0-0.8); EOS# 0.24 X1000 (0.0-0.7); EOS% 2.3 % (0.0-10.0); HEMATOCRIT 31.3 % (37.0-47.0); IMM GRAN# 0.03 X1000 (0.0-0.04); IMM GRAN% 0.3 % (0.0-0.5); LYMPH# 0.97 X1000 (1.2-3.4); LYMPH% 9.4 % (20.5-51.1); MCH 31.1 PG (27-31); MCHC 31.9 g/dL (33-37); MCV 97.2 FL (81-99); MONO# 0.87 X1000 (0.11-0.59); MONO% 8.5 % (1.7-9.3); MPV 10.8 FL (7.4-10.4); NEUT% 79.1 % (42.2-75.2); PLT 93 X1000 (130-400); RBC 3.22 XMIL (4.2-5.4)
[2016-10-20 06:58] LABS: AGAP 6; ALBUMIN 3.1 g/dL (3.5-5.0); ALKALINE PHOSPHATASE 128 U/L (32-104); BUN 15 mg/dL (8-22); CALCIUM 8.5 mg/dL (8.8-10.2); CHLORIDE 93 mmol/L (98-107); COSMO 266; GOT 26 U/L (10-30); GPT 34 U/L (10-36); POTASSIUM 4.6 mmol/L (3.5-5.1); SODIUM 132 mmol/L (136-145); TCO2 33 mmol/L (25-35); TOTAL BILIRUBIN 0.81 mg/dL (0.20-1.00); TOTAL PROTEIN 5.4 g/dL (6.3-8.3)
[2016-10-20] MEDS: INVANZ 1 GM/NS 1 GM/50 ML IVPB IV SCH (08:00)
[2016-10-20] MEDS: SYNTHROID PO SCH (08:01)
[2016-10-20] MEDS: XIFAXAN PO SCH ×2 (08:01→20:27)
[2016-10-20] MEDS: ANUSOL-HC SUPP PR SCH ×2 (08:01→20:27)
[2016-10-20] MEDS: NUCYNTA PO SCH ×2 (08:01→20:27)
[2016-10-20] MEDS: LACTULOSE PO SCH (08:01)
[2016-10-20] MEDS: SYMBICORT 160/4.5 MICROGM INHALER INH SCH ×2 (08:29→19:24)
[2016-10-20] MEDS ORDERED: ALDACTONE PO SCH (10:30)
[2016-10-20] MEDS: MYLICON PO PRN ×2 (10:43→20:29)
--- NOTE | 2016-10-20 13:33 | PROGRESS NOTE ---
DATE: 10/20/2016 SUBJECTIVE: This patient is resting comfortably in bed, when I evaluated this patient she was sitting on the bed and she was eating. She is tolerating p.o. She is still having at least 2 bowel movements per day, her rectal discomfort for the diarrhea is much better. She had ESBL UTI and we are treating this patient with ertapenem for at total of 14 days. OBJECTIVE: Vital Signs: Temperature 98.7 degrees, pulse 100, respiratory rate 20, blood pressure 118/64, oxygen saturation 100% on room air . HEENT: Head normocephalic. No trauma. PERRLA. Neck: Supple. No JVD. No masses. Central trachea. Chest: Coarse breath sounds bilaterally. Mild crackles at the level of the right lower lobe. Abdomen: Soft, mild distended, nontender, obese. There is a big abdominal wall hernia with no pain. Extremities: Lower extremity edema 3+ . Neurological: The patient is alert, oriented x3. No focal neurological deficits, severe weakness. LABORATORY: WBC 10.2, hemoglobin 10, hematocrit 31.3, platelets 93,000. Sodium 132, potassium 4.6, chloride 93, bicarbonate 33, BUN 15, creatinine 0.7, glucose 102, calcium 8.5, albumin 3.1. ASSESSMENT AND PLAN: 1. Urinary tract infection secondary to extended spectrum beta-lactamase. Continue with IV ertapenem for a total of 14 days as per Infectious Disease Department. 2. Massive right pleural effusion status post right Pleurx catheter placement. This patient still has this catheter and she is still draining fluid from it. 3. Hyponatremia stable. 4. Liver cirrhosis with previous hepatic encephalopathy. Continue with rifaximin and lactulose, she is having at least 2 bowel movements per day, I will restart today a low dose of spironolactone. 5. Right lower lobe pneumonia resolved. 6. Hypothyroidism. Continue with Synthroid. 7. Rectal discomfort. I started this patient on Anusol 2 days ago. She is feeling better. 8. Thrombocytopenia stable. 9. Morbid obesity. Aware. 10. Severe physical deconditioning. Continue with physical therapy. director of cloud services is working on rehab center placement/LTAC for this patient. cc: Fahad Dickey MD
[2016-10-21] MEDS: DUONEB (A & A) INH SCH ×6 (03:36→22:59)
[2016-10-21 07:17] LABS: AGAP 6; BUN 13 mg/dL (8-22); CALCIUM 8.7 mg/dL (8.8-10.2); CHLORIDE 94 mmol/L (98-107); COSMO 268; POTASSIUM 5.2 mmol/L (3.5-5.1); SODIUM 133 mmol/L (136-145); TCO2 33 mmol/L (25-35)
[2016-10-21 07:18] LABS: MANUAL DIFF NEEDED? NO
[2016-10-21 07:20] LABS: BASO% 0.4 % (0.0-0.8); EOS# 0.19 X1000 (0.0-0.7); EOS% 1.7 % (0.0-10.0); HEMATOCRIT 31.3 % (37.0-47.0); IMM GRAN# 0.03 X1000 (0.0-0.04); IMM GRAN% 0.3 % (0.0-0.5); LYMPH# 0.84 X1000 (1.2-3.4); LYMPH% 7.5 % (20.5-51.1); MCH 30.9 PG (27-31); MCHC 31.9 g/dL (33-37); MCV 96.6 FL (81-99); MONO# 0.82 X1000 (0.11-0.59); MONO% 7.3 % (1.7-9.3); MPV 10.9 FL (7.4-10.4); NEUT% 82.8 % (42.2-75.2); PLT 100 X1000 (130-400); RBC 3.24 XMIL (4.2-5.4)
[2016-10-21] MEDS: SYMBICORT 160/4.5 MICROGM INHALER INH SCH ×2 (07:30→19:38)
[2016-10-21] MEDS: NUCYNTA PO SCH ×2 (09:43→22:44)
[2016-10-21] MEDS: INVANZ 1 GM/NS 1 GM/50 ML IVPB IV SCH (09:44)
[2016-10-21] MEDS: ANUSOL-HC SUPP PR SCH ×2 (09:44→22:46)
[2016-10-21] MEDS: XIFAXAN PO SCH ×2 (09:44→22:44)
[2016-10-21] MEDS: LACTULOSE PO SCH (09:44)
[2016-10-21] MEDS: SYNTHROID PO SCH (09:44)
--- NOTE | 2016-10-21 10:18 | PROGRESS NOTE ---
DATE: 10/21/2016 SUBJECTIVE: This patient states that she is feeling better. She is tolerating p.o. She is having bowel movements. She has ESBL UTI and we are treating this patient ertapenem for a total of 14 days. OBJECTIVE: Vital Signs: Temperature 98.2 degrees, pulse 99, respiratory rate 22, blood pressure 114/54, oxygen saturation 100% on 3 L of nasal cannula. HEENT: Head normocephalic. No trauma. PERRLA. Neck: Supple. No JVD. No masses. Central trachea. Chest: Coarse breath sounds bilaterally. Mild crackles at the right lower lobe. Abdomen: Soft, obese, mildly distended. Nontender. There is a big abdominal wall hernia with no pain. Extremities: Lower extremity edema 3+. Neurological: The patient is alert and oriented x3. No focal neurological deficits. Severe weakness. LABORATORY: WBC 11.2, hemoglobin 10.0, hematocrit 31.3, platelets 100,000. Sodium 133, potassium 5.2, chloride 94, bicarbonate 33, BUN 13, creatinine 0.7, glucose 125, calcium 8.7. ASSESSMENT AND PLAN: 1. Urinary tract infection secondary to extended spectrum beta-lactamase. Will continue with IV ertapenem a total of 14 days as per infectious disease department. 2. Massive right pleural effusion status post right Pleurx catheter placement. This patient still has this catheter and she is still draining fluid from this. 3. Hyponatremia, stable. 4. Mild hyperkalemia. Will monitor. I will stop the spironolactone. 5. Liver cirrhosis with previous hepatic encephalopathy. Continue with rifaximin and lactulose. 6. Right lower lobe pneumonia, resolved. 7. Hypothyroidism. Continue with Synthroid. 8. Rectal discomfort. This patient is getting Anusol rectally. She feels better. 9. Thrombocytopenia, stable. 10. Morbid obesity. Aware. 11. Severe physical deconditioning. Continue with physical therapy. career services director is working on rehab/LTAC placement for this patient. cc: Fahad Dickey MD
[2016-10-21] MEDS: MYLICON PO PRN (12:29)
[2016-10-21] MEDS: CALMOSEPTINE OINTMENT TOP PRN (12:30)
--- NOTE | 2016-10-21 18:05 | PROGRESS NOTE ---
DATE: 10/21/2016 PRESENT ILLNESS: The patient has a symptomatic extended spectrum beta lactamase producing Escherichia coli urinary tract infection. MEDICATIONS: This is day 8 of treatment with ertapenem. PHYSICAL EXAMINATION: Vital Signs: Temperature is 98.1 degrees, pulse 98, respirations 20, blood pressure 115/72. General: This is an ill-appearing obese elderly female who is in no acute distress. Lungs: Clear to auscultation. Cardiovascular: Heart rate is regular. Abdomen: Very distended, but soft and not tender. Thorax: Patient has a Pleurx tube in place on the right side. LABORATORY AND X-RAY: CBC today shows a white count of 11,210, hemoglobin 10 and platelet count 100,000. The patient's creatinine today was 0.7. GFR is greater than 60. There are no new radiographic studies. Laboratory-ramos, CBC shows a white count of 11,210, hemoglobin 10, platelet count 100,000. ASSESSMENT AND PLAN: 1. Patient has urinary tract infection. The plan is to continue her ertapenem for 14 days. 2. Comorbidities consist of the following: They include cirrhosis of the liver, sleep apnea, hypothyroidism and morbid obesity. cc: Dereck Young MD
[2016-10-22] MEDS: DUONEB (A & A) INH SCH ×6 (04:51→23:17)
[2016-10-22 06:50] LABS: AGAP 8; BUN 15 mg/dL (8-22); CALCIUM 8.3 mg/dL (8.8-10.2); CHLORIDE 91 mmol/L (98-107); COSMO 269; POTASSIUM 5.2 mmol/L (3.5-5.1); SODIUM 133 mmol/L (136-145); TCO2 34 mmol/L (25-35)
[2016-10-22] MEDS: SYMBICORT 160/4.5 MICROGM INHALER INH SCH ×2 (07:16→19:09)
[2016-10-22] MEDS: LACTULOSE PO SCH (08:12)
[2016-10-22] MEDS: INVANZ 1 GM/NS 1 GM/50 ML IVPB IV SCH (08:12)
[2016-10-22] MEDS: XIFAXAN PO SCH ×2 (08:12→20:27)
[2016-10-22] MEDS: MYLICON PO PRN ×2 (08:13→23:33)
[2016-10-22] MEDS: SYNTHROID PO SCH (08:13)
[2016-10-22] MEDS: NUCYNTA PO SCH ×2 (08:16→20:27)
--- NOTE | 2016-10-22 15:00 | PROGRESS NOTE ---
DATE: 10/22/2016 SUBJECTIVE: This patient states that she is feeling better. She has ESBL UTI and we are treating this patient with ertapenem for a total of 14 days. She is still having generalized weakness. Physical therapy on board and we are trying to put find placement for this lady. OBJECTIVE: Vital Signs: Temperature 99.1 degrees, pulse 91, respiratory rate 17, blood pressure 108/70, O2 saturation 98 on 3 L of nasal cannula. HEENT: Head normocephalic. No trauma. PERRLA. Neck: Supple. No JVD. No masses. Central trachea. Chest: Coarse breath sounds bilaterally. Mild crackles at the right lower base. Abdomen: Soft, obese, mildly distended. Nontender. There is a big abdominal wall hernia with no pain. Extremities: Lower extremity edema 3+. Neurological: The patient is alert and oriented x3. No focal neurological deficits. Severe weakness. LABORATORY: Sodium 133, potassium 5.2, chloride 91, bicarbonate 34. BUN 15, creatinine 0.7. Glucose 137, calcium 8.3. ASSESSMENT AND PLAN: 1. UTI secondary to ESBL. Continue with IV ertapenem for a total of 14 days as per Infectious Disease Department. 2. Massive right pleural effusion status post right Pleurx catheter placement. This patient still has this catheter and she is still draining fluid from this. 3. Hyponatremia stable. 4. Mild hyperkalemia. Will monitor. 5. Liver cirrhosis with previous hepatic encephalopathy. Continue with Rifaximin and lactulose. 6. Right lower lobe pneumonia. Resolved. 7. Hypothyroidism. Continue with Synthroid. 8. Rectal discomfort. This patient was getting Anusol rectally. She feels better. 9. Thrombocytopenia stable. 10. Morbid obesity. Aware. 11. Severe physical deconditioning. Continue with physical therapy. early childhood services coordinator is working on placement for this patient. cc: Fahad Dickey MD
[2016-10-23] MEDS: DUONEB (A & A) INH SCH ×6 (03:00→22:44)
[2016-10-23 03:31] LABS: AGAP 10; BUN 16 mg/dL (8-22); CALCIUM 8.4 mg/dL (8.8-10.2); CHLORIDE 91 mmol/L (98-107); COSMO 272; MAGNESIUM 2.3 mg/dL (1.5-2.7); POTASSIUM 5.2 mmol/L (3.5-5.1); SODIUM 134 mmol/L (136-145); TCO2 33 mmol/L (25-35)
--- NOTE | 2016-10-23 05:19 | EKG Report ---
Test Performed on : 10/23/2016 02:39:33 AM Test Reason : vtach Blood Pressure : / mmHG Vent. Rate : 094 BPM Atrial Rate : 094 BPM P-R Int : 150 ms QRS Dur : 068 ms QT Int : 330 ms P-R-T Axes : 052 028 031 degrees QTc Int : 412 ms Normal sinus rhythm. Normal ECG When compared with ECG of 26-SEP-2016 15:33, QT has shortened Confirmed by Alex Ramirez MD ([id number]) on 10/23/2016 10:35:38 AM
[2016-10-23] MEDS: SYMBICORT 160/4.5 MICROGM INHALER INH SCH ×2 (07:21→19:17)
[2016-10-23] MEDS: INVANZ 1 GM/NS 1 GM/50 ML IVPB IV SCH (07:48)
[2016-10-23] MEDS: NUCYNTA PO SCH ×2 (09:01→20:13)
[2016-10-23] MEDS: SYNTHROID PO SCH (09:02)
[2016-10-23] MEDS: XIFAXAN PO SCH ×2 (09:02→20:13)
[2016-10-23] MEDS: LACTULOSE PO SCH ×2 (09:02→11:43)
[2016-10-23] MEDS ORDERED: LACTULOSE PO PRN (12:46)
--- NOTE | 2016-10-23 13:18 | PROGRESS NOTE ---
DATE: 10/23/2016 SUBJECTIVE: This patient states that she is feeling about the same. She has been having daily bowel movements, even more than 2 or 3. So, I will stop the lactulose and I will continue with rifaximin. Lactulose will be p.r.n. Otherwise, she is feeling fine. She is tolerating physical therapy. OBJECTIVE: Vital Signs: Temperature 98.2 degrees, pulse 98, respiratory rate 18, blood pressure 139/79, oxygen saturation 98 on 2 L of nasal cannula. HEENT: Head normocephalic. No trauma. PERRLA. Neck: Supple. No JVD. No masses. Central trachea. Chest: Coarse breath sounds bilaterally. Mild crackles at the level of the right base. Abdomen: Soft, obese, mildly distended. Nontender. There is a peak abdominal wall hernia with no pain. Extremity: Lower extremity edema 3+. Neurological examination: The patient is alert and oriented x3. No focal deficits. She moves all 4 extremities. LABORATORY: Sodium 134, potassium 5.2, chloride 91, bicarbonate 33, BUN 16, creatinine 0.8, glucose 140, calcium 8.4, magnesium 2.3. ASSESSMENT AND PLAN: 1. Urinary tract infection secondary to extended spectrum beta lactamase. Continue with intravenous ertapenem for a total of 14 days as per Infectious Disease Department. 2. Massive right pleural effusion status post right PleurX catheter placement. Probably when we discharge this patient, we will go with this catheter. 3. Hyponatremia, stable. 4. Mild hyperkalemia. Will monitor. Stable. 5. Liver cirrhosis with previous hepatic encephalopathy. Continue with rifaximin. I have stopped the dose of lactulose because she has been having multiple watery bowel movements. 6. Right lower lobe pneumonia, resolved. 7. Hypothyroidism. Continue with Synthroid. 8. Rectal discomfort, stable. Aware. 9. Thrombocytopenia. Stable. 10. Morbid obesity. Aware. 11. Sever physical deconditioning. Continue with physical therapy. Bench Mechanic is working on placement for this patient. cc: Fahad Dickey MD
[2016-10-23] MEDS: ZANAFLEX PO PRN (15:45)
[2016-10-23] MEDS: MYLICON PO PRN (15:48)
[2016-10-23] MEDS: CALMOSEPTINE OINTMENT TOP PRN (15:49)
--- NOTE | 2016-10-23 19:25 | PROGRESS NOTE ---
DATE: 10/23/2016 PRESENT ILLNESS: The patient is being treated for a symptomatic extended spectrum beta lactamase producing Escherichia coli urinary tract infection. MEDICATIONS: This is day 9 of treatment with ertapenem. PHYSICAL EXAMINATION: Vital Signs: Temperature is 98.2 degrees, pulse 91, respirations 22, blood pressure 108/63. General: This is a chronically ill-appearing elderly female. She is in no acute distress. Lungs: Clear to auscultation. Cardiovascular: Regular heart rate. Abdomen: Distended and swollen, but not tender. Extremities: Both legs have erythema and edema. LABORATORY AND X-RAY: Patient's creatinine is 0.8. GFR is greater than 60. ASSESSMENT AND PLAN: 1. Patient has a urinary tract infection. She will require 5 more days of treatment with ertapenem. The patient also has erythematous and edematous legs. I have put the foot of the bed elevated with a manual Gatch and I have ordered that it should always be that way. I have ordered also for tomorrow a CBC and creatinine. 2. Comorbidities: Cirrhosis of the liver, sleep apnea, hypothyroidism and morbid obesity. cc: Dereck Young MD
[2016-10-24] MEDS: DUONEB (A & A) INH SCH ×6 (03:37→22:47)
[2016-10-24] MEDS: SYMBICORT 160/4.5 MICROGM INHALER INH SCH ×2 (07:22→19:00)
[2016-10-24 08:57] LABS: BASO% 0.3 % (0.0-0.8); EOS# 0.27 X1000 (0.0-0.7); EOS% 2.9 % (0.0-10.0); HEMATOCRIT 30.1 % (37.0-47.0); HEMOGLOBIN 9.4 g/dL (12.0-16.0); IMM GRAN# 0.02 X1000 (0.0-0.04); IMM GRAN% 0.2 % (0.0-0.5); LYMPH# 0.97 X1000 (1.2-3.4); LYMPH% 10.5 % (20.5-51.1); MANUAL DIFF NEEDED? NO; MCH 30.7 PG (27-31); MCHC 31.2 g/dL (33-37); MCV 98.4 FL (81-99); MONO# 0.69 X1000 (0.11-0.59); MONO% 7.5 % (1.7-9.3); NEUT% 78.6 % (42.2-75.2); PLT 98 X1000 (130-400); RBC 3.06 XMIL (4.2-5.4)
[2016-10-24] MEDS: SYNTHROID PO SCH (09:28)
[2016-10-24] MEDS: VITAMIN D PO SCH (09:28)
[2016-10-24] MEDS: XIFAXAN PO SCH ×2 (09:28→21:32)
[2016-10-24] MEDS: NUCYNTA PO SCH ×2 (09:28→21:31)
[2016-10-24] MEDS: INVANZ 1 GM/NS 1 GM/50 ML IVPB IV SCH (09:29)
--- NOTE | 2016-10-24 15:44 | PROGRESS NOTE ---
DATE: 10/24/2016 SUBJECTIVE: This patient states that she is feeling better. She has been having bowel movements even without lactulose. Family member at the bedside. I told them that it has been denied twice, the possibility of going to an LTAC. OBJECTIVE: Vital Signs: Temperature 98.3 degrees, pulse 91, respiratory rate 20, blood pressure 139/98, O2 saturation 94% on 2 L of nasal cannula. HEENT: Normocephalic. No trauma. PERRLA. Neck supple. No JVD. No masses. Central trachea. Chest: Coarse breath sounds bilaterally. Abdomen soft. Mildly distended, nontender. There is a big abdominal wall hernia with no pain. Extremities: Lower extremity edema 3+. No cyanosis. Neurological: The patient is alert and oriented x3. She moves all 4 extremities. She has generalized weakness. LABORATORY: WBC 9.2, hemoglobin 9.4, hematocrit 30.1, platelets 98,000. ASSESSMENT AND PLAN: 1. Urinary tract infection secondary to extended spectrum beta-lactamase Escherichia coli. Continue with IV ertapenem for a total of 14 days as per Infectious Disease Department. 2. Massive right pleural effusion status post right Pleurx catheter placement. Surgery Department will evaluate this patient again today to re-evaluate the possibility of keeping or leaving the catheter. 3. Hyponatremia, stable. 4. Liver cirrhosis with previous hepatic encephalopathy. Continue with rifaximin. I had to stop the dose of lactulose because she has been having multiple watery bowel movements. She is still having bowel movements even without lactulose. I will keep an eye on this. She is on lactulose p.r.n. 5. Right lower lobe pneumonia, resolved. 6. Hypothyroidism. Continue with Synthroid. 7. Thrombocytopenia, stable. 8. Morbid obesity, aware. 9. Severe physical deconditioning. Continue physical therapy. director of convention services is working on placement for this patient. DISPOSITION: This patient looks stable. We have been trying to discharge this patient to an LTAC but it has been denied. The other possibility is to send this patient to a [facility] but she has a thoracic catheter and probably they will not accept this patient with this catheter. Surgery Department will re-evaluate this patient to see if we need to keep it or remove the catheter. I do believe that probably will keep it. Will continue to monitor. cc: Fahad Dickey MD
[2016-10-24] MEDS: NON-FORMULARY MED TOP SCH (16:20)
--- NOTE | 2016-10-24 18:28 | Diag Imaging Result Doc PS360 ---
EXAM: CHEST-PORTABLE HISTORY: right pleural effusion TECHNIQUE: Portable AP COMPARISON: 10/19/2016 FINDINGS: Poor inspiratory effort. No change in the right-sided PICC line. The vessels are not distended. No infiltrates. Questionable small right pleural effusion. IMPRESSION: Negative exam although there is a poor inspiratory effort and the current exam is taken in a lordotic projection. Electronically signed by Coleman Gonzalez 10/24/2016 6:25 PM
[2016-10-24 21:18] LABS: AGAP 10; ALKALINE PHOSPHATASE 131 U/L (32-104); BUN 20 mg/dL (8-22); CALCIUM 7.9 mg/dL (8.8-10.2); CHLORIDE 92 mmol/L (98-107); COSMO 274; GOT 27 U/L (10-30); GPT 29 U/L (10-36); POTASSIUM 4.9 mmol/L (3.5-5.1); SODIUM 135 mmol/L (136-145); TCO2 33 mmol/L (25-35); TOTAL BILIRUBIN 0.68 mg/dL (0.20-1.00); TOTAL PROTEIN 5.3 g/dL (6.3-8.3)
[2016-10-24] MEDS: MYLICON PO PRN (21:32)
[2016-10-25] MEDS: DUONEB (A & A) INH SCH ×6 (03:12→22:43)
[2016-10-25 06:29] LABS: MANUAL DIFF NEEDED? NO
[2016-10-25 06:48] LABS: BASO% 0.6 % (0.0-0.8); EOS% 3.1 % (0.0-10.0); HEMATOCRIT 30.2 % (37.0-47.0); HEMOGLOBIN 9.4 g/dL (12.0-16.0); IMM GRAN# 0.02 X1000 (0.0-0.04); IMM GRAN% 0.2 % (0.0-0.5); LYMPH# 1.16 X1000 (1.2-3.4); LYMPH% 11.9 % (20.5-51.1); MCH 30.6 PG (27-31); MCHC 31.1 g/dL (33-37); MCV 98.4 FL (81-99); MONO% 9.2 % (1.7-9.3); MPV 10.9 FL (7.4-10.4); PLT 112 X1000 (130-400); RBC 3.07 XMIL (4.2-5.4)
[2016-10-25 06:50] LABS: AGAP 6; ALKALINE PHOSPHATASE 135 U/L (32-104); BUN 22 mg/dL (8-22); CALCIUM 8.2 mg/dL (8.8-10.2); CHLORIDE 95 mmol/L (98-107); COSMO 273; GOT 30 U/L (10-30); GPT 29 U/L (10-36); POTASSIUM 4.9 mmol/L (3.5-5.1); SODIUM 135 mmol/L (136-145); TCO2 34 mmol/L (25-35); TOTAL BILIRUBIN 0.74 mg/dL (0.20-1.00); TOTAL PROTEIN 5.7 g/dL (6.3-8.3)
[2016-10-25] MEDS: SYMBICORT 160/4.5 MICROGM INHALER INH SCH ×2 (07:30→18:58)
[2016-10-25] MEDS: INVANZ 1 GM/NS 1 GM/50 ML IVPB IV SCH (07:35)
[2016-10-25] MEDS: SYNTHROID PO SCH (08:08)
[2016-10-25] MEDS: XIFAXAN PO SCH ×2 (08:08→21:37)
[2016-10-25] MEDS: NUCYNTA PO SCH ×2 (08:08→21:36)
[2016-10-25] MEDS: MYLICON PO PRN ×3 (08:11→21:40)
--- NOTE | 2016-10-25 14:41 | PROGRESS NOTE ---
DATE: 10/25/2016 SUBJECTIVE: This patient states that she is feeling fine. Surgery department evaluated this patient yesterday and they clamp the thoracic catheter and we will follow this patient during the weekend with x-rays to see if she builds up more fluid. OBJECTIVE: Vital Signs: Temperature 97.8 degrees, pulse 94, respiratory rate 17, blood pressure 113/58. Oxygen saturation 100% on 2 L of nasal cannula. HEENT: Head normocephalic. No trauma. PERRLA. Neck: Supple. No JVD. No masses. Central trachea. Chest: Coarse breath sounds bilaterally. Abdomen: Soft, mildly distended. Nontender. There is a big abdominal wall hernia with no pain. Extremities: Lower extremity edema 3+. No cyanosis. Neurological Examination: The patient is alert and oriented x3. She moves all 4 extremities. She has generalized weakness. LABORATORY: WBC 9.7, hemoglobin 9.4, hematocrit 30.2, platelets 112,000. Sodium 135, potassium 4.9, chloride 95, bicarbonate 34. BUN 22, creatinine 0.8, glucose 96, calcium 8.2, albumin 3. ASSESSMENT AND PLAN: 1. Urinary tract infection secondary to extended spectrum beta-lactamase Escherichia coli. Continue with IV ertapenem for a total of 14 days as per Infectious Disease Department. 2. Massive right pleural effusion, status post right Pleurx catheter placement. Surgery Department evaluated this patient yesterday and they are planning to clamp this catheter and see how she does during the weekend. 3. Hyponatremia. Today the sodium is normal. 4. Liver cirrhosis with previous hepatic encephalopathy. Continue with rifaximin. She is having daily bowel movements. In case of constipation, we will use p.r.n. lactulose for now. 5. I will start today a low dose of Lasix and hopefully will start this patient also on Aldactone in the near future. 6. Right lower lobe pneumonia, resolved. 7. Hypothyroidism. Continue with Synthroid. 8. Thrombocytopenia. Stable. 9. Morbid obesity. Aware. 10. Severe physical deconditioning. Continue with physical therapy. patient services assistant is working on placement for this patient. cc: Fahad Dickey MD
--- NOTE | 2016-10-25 14:52 | PROGRESS NOTE ---
DATE: 10/25/2016 PRESENT ILLNESS: The patient is being treated for symptomatic extended spectrum beta lactamase producing E. coli urinary tract infection. MEDICATIONS: This is day 11 of treatment with ertapenem. PHYSICAL EXAMINATION: Vital Signs: Temperature is 97.8, pulse 94, respirations 17, blood pressure 113/58. General: This is an obese, elderly female who appears chronically ill. Lungs: Clear to auscultation. Cardiovascular: Regular heart rate. Abdomen: Distended and swollen, but not tender. Thorax: The patient has a PleurX catheter in place. Extremities: Patient has a PICC in her right arm. The site is not erythematous or swollen. Both legs are edematous, but most the erythema has cleared. LAB AND X-RAY: The patient had a chest x-ray yesterday. The x-ray shows poor inspiratory effect. There is no change in the right-sided PICC. There are no infiltrates present. The patient's laboratory studies show a CBC with a white count of 9740, hemoglobin 9.4, and platelet count is 112,000. Creatinine is 0.8. GFR is greater than 60. The patient's alkaline phosphatase is 135. There is no new report from the microbiology laboratory. COMORBIDITIES: Include cirrhosis of the liver, sleep apnea, hypothyroidism and morbid obesity. ASSESSMENT AND PLAN: The patient has urinary tract infection. She will need 3 more days of treatment with ertapenem. cc: Dereck Young MD
[2016-10-25] MEDS: LASIX PO SCH (15:18)
[2016-10-25] MEDS: ZANAFLEX PO PRN (15:24)
[2016-10-26] MEDS: DUONEB (A & A) INH SCH ×6 (03:26→22:57)
[2016-10-26 06:58] LABS: AGAP 8; BUN 22 mg/dL (8-22); CALCIUM 8.3 mg/dL (8.8-10.2); CHLORIDE 98 mmol/L (98-107); COSMO 282; POTASSIUM 4.6 mmol/L (3.5-5.1); SODIUM 139 mmol/L (136-145); TCO2 33 mmol/L (25-35)
[2016-10-26] MEDS: SYMBICORT 160/4.5 MICROGM INHALER INH SCH ×2 (07:55→19:13)
--- NOTE | 2016-10-26 08:43 | Diag Imaging Result Doc PS360 ---
EXAM: CHEST-PORTABLE INDICATION: SOB TECHNIQUE: One view COMPARISON: 10/24/2016 FINDINGS: Inspiration remains suboptimal but is slightly better than the previous study. The small right pleural effusion seen previously has decreased in size. There is mild residual atelectasis and/or infiltrate at the right lung base. No new consolidations are identified, otherwise. Cardiac silhouette is stable. IMPRESSION: Decrease in size in the small right pleural effusion with residual mild atelectasis and/or infiltrate at the right lung base. Electronically signed by Efrain Yousif 10/26/2016 8:41 AM
[2016-10-26] MEDS: LASIX PO SCH (08:52)
[2016-10-26] MEDS: NUCYNTA PO SCH ×2 (08:52→23:50)
[2016-10-26] MEDS: MYLICON PO PRN ×2 (08:52→13:03)
[2016-10-26] MEDS: SYNTHROID PO SCH (08:52)
[2016-10-26] MEDS: INVANZ 1 GM/NS 1 GM/50 ML IVPB IV SCH (08:53)
[2016-10-26] MEDS: XIFAXAN PO SCH ×2 (08:54→23:51)
--- NOTE | 2016-10-26 12:52 | PROGRESS NOTE ---
DATE: 10/26/2016 SUBJECTIVE: This patient states that she is feeling better. She is complaining of back pain and this is likely related with too much time on the bed. OBJECTIVE: Vital Signs: Temperature 98.3 degrees, pulse 99m respiratory rate 17, blood pressure 110/73. O2 saturation 96% on 2 L of nasal cannula. HEENT: Head normocephalic. No trauma. Pupils equal, round, and reactive to light and accommodation. Neck: Supple. No jugular venous distention. No masses. Central trachea. Chest: Decreased breath sounds globally. Mild rales at the level of the right lower lung. Abdomen: Soft, nontender, mildly distended. This patient has a big abdominal wall hernia. Extremities: There is 3+ lower extremity edema. No clubbing. No cyanosis. Neurological Examination: The patient is alert and oriented x3. No focal neurological deficits. LABORATORY: Sodium 139, potassium 4.6, chloride 98, bicarbonate 33. BUN 22, creatinine 0.8. Glucose 119, calcium 8.3. ASSESSMENT AND PLAN: 1. Urinary tract infection secondary to extended spectrum beta-lactamase Escherichia coli. Continue with IV ertapenem for a total of 14 days, as per Infectious Disease Department. 2. Massive right pleural effusion, status post right Pleurx catheter placement. Surgery Department evaluated this patient and following this patient. 3. Hyponatremia, resolved. 4. Liver cirrhosis with previous hepatic encephalopathy. Continue with rifaximin. She has been having daily bowel movements and with diarrhea, so I have stopped the lactulose and she will be on p.r.n. lactulose for now. 5. Fluid overload. I started yesterday a low dose of Lasix. I am planning to start Aldactone in the near future. 6. Right lower lobe pneumonia, resolved. 7. Hypothyroidism. Continue with Synthroid. 8. Thrombocytopenia, stable. 9. Morbid obesity, aware. 10. Severe physical deconditioning. Continue physical therapy. donor services technician is working on placement for this patient. We did a chest x-ray today that showed a decrease in size in the small right pleural effusion with residual mild atelectasis and/or infiltrate at right lung base. cc: Fahad Dickey MD
[2016-10-26] MEDS: ZANAFLEX PO PRN (13:06)
--- NOTE | 2016-10-26 14:15 | PROGRESS NOTE ---
DATE: 10/26/2016 SUBJECTIVE: The patient is doing well. No new complaints overnight. She does not have any shortness of breath. OBJECTIVE: Vital Signs: She is afebrile. Vital signs are stable. General: She is awake and alert. No acute distress. CV: Regular rate and rhythm. Respiratory: Bilateral equal breath sounds. No work of breathing. IMAGING: A chest x-ray shows a decrease in the small right pleural effusion. ASSESSMENT/PLAN: A 71-year-old female with right pleural effusion which has been recurrent in nature. It has improved. She is tolerating the clamping of her PleurX catheter. We will continue this over the weekend. Dr. Napoles will re-evaluate her on Friday. cc: Augie Munroe MD
[2016-10-27] MEDS: DUONEB (A & A) INH SCH ×5 (03:38→19:49)
[2016-10-27] MEDS: SYMBICORT 160/4.5 MICROGM INHALER INH SCH ×2 (07:21→19:49)
--- NOTE | 2016-10-27 09:54 | PROGRESS NOTE ---
DATE: 10/27/2016 SUBJECTIVE: The patient denies any chest pain or shortness of breath. OBJECTIVE: Vital Signs: She is afebrile. Vital signs are stable. General: She is awake and alert, in no acute distress. She is oriented x4. Respiratory: She has bilateral equal breath sounds. Laboratory: Her C. difficile toxin and antigen are negative. ASSESSMENT/PLAN: A 71-year-old female with right pleural effusion which has nearly resolved after a PleurX catheter placement. She is tolerating it being clamped so far over the weekend. Plans for further catheter drainage versus catheter removal are per Dr. Napoles tomorrow. cc: Augie Munroe MD
[2016-10-27] MEDS: LASIX PO SCH (09:56)
[2016-10-27] MEDS: XIFAXAN PO SCH ×2 (09:56→21:40)
[2016-10-27] MEDS: INVANZ 1 GM/NS 1 GM/50 ML IVPB IV SCH (09:56)
[2016-10-27] MEDS: SYNTHROID PO SCH (09:56)
[2016-10-27] MEDS: NUCYNTA PO SCH ×2 (10:02→21:40)
[2016-10-27] MEDS: MYLICON PO PRN ×2 (13:42→21:45)
--- NOTE | 2016-10-27 15:33 | PROGRESS NOTE ---
DATE: 10/27/2016 SUBJECTIVE: This patient states that she is feeling good. She is tolerating p.o. She is having bowel movement. Family members at the bedside. I will ask for a new chest x-ray for tomorrow morning and lab work. OBJECTIVE: Vital Signs: Temperature 98.2 degrees, pulse 98, respiratory rate 19, blood pressure 106/61, oxygen saturation 99 on 2 L of nasal cannula. HEENT: Head normocephalic. No trauma. PERRLA. Neck: Supple. No JVD. No masses. Central trachea. Chest: Decreased breath sounds globally. Mild rales at the level of the right lower lung. Abdomen: Soft. Mildly distended. She has a large abdominal wall hernia. Positive bowel sounds. Extremities: There 3+ lower extremity edema. No clubbing. No cyanosis. Neurological: The patient is alert and oriented x3. No focal neurological deficits. LABORATORY: No lab work done today. ASSESSMENT AND PLAN: 1. Urinary tract infection secondary to extended spectrum beta-lactamases Escherichia coli. Continue with IV ertapenem for a total of 14 days as per infectious disease department. 2. Massive right pleural effusion status post right Pleurx catheter placement. Surgery department evaluated this patient and we will repeat a new x-ray tomorrow morning to see if this catheter can be removed or not. 3. Hyponatremia, resolved. 4. Liver cirrhosis with previous hepatic encephalopathy. Continue with the rifaximin mean stable and continue with lactulose p.r.n. 5. Fluid overload. Plan continue with low dose of Lasix. Daughter will do a new CMP to check her potassium and sodium. If this is okay I will probably start this patient on a low dose of Aldactone. 6. Right lower lobe pneumonia. Resolved. 7. Hypothyroidism, continue with Synthroid. 8. Thrombocytopenia. Stable. 9. Morbid obesity. Aware. 10. Physical deconditioning. Continue with physical therapy. 11. transportation services representative is working on placement for this patient. cc: Fahad Dickey MD
--- NOTE | 2016-10-28 06:43 | Diag Imaging Result Doc PS360 ---
EXAM: CHEST-PORTABLE HISTORY: SOB TECHNIQUE: Portable COMPARISON: 10/26/2016 FINDINGS: The lungs are poorly expanded. The heart is not enlarged. There is atelectasis in the right base. There could be a tiny underlying infiltrate. No change in the right-sided PICC line. No pleural effusions identified. IMPRESSION: Stable chest. Electronically signed by Coleman Gonzalez 10/28/2016 6:40 AM
[2016-10-28 06:48] LABS: MANUAL DIFF NEEDED? NO
[2016-10-28 07:13] LABS: AGAP 7; ALBUMIN 2.7 g/dL (3.5-5.0); ALKALINE PHOSPHATASE 146 U/L (32-104); BUN 16 mg/dL (8-22); CALCIUM 8.3 mg/dL (8.8-10.2); CHLORIDE 96 mmol/L (98-107); COSMO 273; GOT 31 U/L (10-30); GPT 33 U/L (10-36); POTASSIUM 4.7 mmol/L (3.5-5.1); SODIUM 135 mmol/L (136-145); TCO2 32 mmol/L (25-35); TOTAL BILIRUBIN 0.73 mg/dL (0.20-1.00); TOTAL PROTEIN 5.6 g/dL (6.3-8.3)
[2016-10-28 07:14] LABS: BASO% 0.5 % (0.0-0.8); EOS# 0.22 X1000 (0.0-0.7); EOS% 2.8 % (0.0-10.0); HEMATOCRIT 31.5 % (37.0-47.0); HEMOGLOBIN 9.6 g/dL (12.0-16.0); LYMPH# 1.04 X1000 (1.2-3.4); LYMPH% 13.5 % (20.5-51.1); MCHC 30.5 g/dL (33-37); MCV 101.6 FL (81-99); MONO# 0.78 X1000 (0.11-0.59); MONO% 10.1 % (1.7-9.3); MPV 11.3 FL (7.4-10.4); NEUT% 73.1 % (42.2-75.2); PLT 133 X1000 (130-400)
[2016-10-28] MEDS: XIFAXAN PO SCH ×2 (10:03→20:39)
[2016-10-28] MEDS: NUCYNTA PO SCH ×2 (10:03→20:39)
[2016-10-28] MEDS: LASIX PO SCH (10:03)
[2016-10-28] MEDS: INVANZ 1 GM/NS 1 GM/50 ML IVPB IV SCH (10:03)
[2016-10-28] MEDS: SYNTHROID PO SCH (10:03)
[2016-10-28] MEDS: ZANAFLEX PO PRN (11:01)
[2016-10-28] MEDS: SYMBICORT 160/4.5 MICROGM INHALER INH SCH ×2 (11:19→20:15)
--- NOTE | 2016-10-28 15:50 | PROGRESS NOTE ---
DATE: 10/28/2016 SUBJECTIVE: No changes compared with yesterday. This patient is feeling good, she is tolerating p.o. She is having a bowel movement. No family members at the bedside. X-ray done today showed a stable chest. Surgery department on board. They are evaluating the possibility of removing the chest tube. We have been trying to find placement for this patient. We sent twice the application for LTAC and they were denied. If the chest tube is removed, probably this patient will qualify for SNF. We will continue to monitor. OBJECTIVE: Vital Signs: Temperature 97.8 degrees, pulse 92, respiratory rate 20, blood pressure 110/68, O2 saturation 99 on 2 L of nasal cannula. HEENT: Head normocephalic. No trauma. PERRLA. Neck: Supple. No JVD. No masses. Central trachea. Chest: Decreased breath sounds globally. Mild rales at the bases. Abdomen: Soft. Mildly distended. She has a large abdominal wall hernia. Positive bowel sounds. Extremities: 3+ lower extremity edema. No clubbing. No cyanosis. Neurological: The patient is alert and oriented x3. No focal neurological deficits. General: female in no acute distress, with morbid obesity. LABORATORY: WBC 7.7, hemoglobin 9.6, hematocrit 31.5, platelets 133,000. Sodium 135, potassium 4.7, chloride 96, bicarbonate 32, BUN 16, creatinine 0.7, glucose 132, calcium 8.3. ASSESSMENT AND PLAN: 1. Urinary tract infection secondary to extended-spectrum beta-lactamases Escherichia coli, this patient has been getting ertapenem. We will continue treatment for 14 days, Infectious Disease Department is following this patient. 2. Massive right pleural effusion status post right Pleurx catheter placement. Surgery Department has evaluated the possibility of removing this tube, x-ray today did not show any changes. 3. Hyponatremia. Resolved. 4. Liver cirrhosis with previous hepatic encephalopathy. Continue with rifaximin. I put this patient also on a low dose of furosemide; I am not using Aldactone because this patient has been having hyperkalemia. But as soon as everything is better, I think we can restart these treatment. 5. Right lower lobe pneumonia. Resolved. 6. Hypothyroidism. Continue with Synthroid. 7. Thrombocytopenia. Stable. 8. Morbid obesity. Aware. 9. Physical deconditioning. Continue physical therapy. 10. relocation services specialist is working on placement for this patient, she was refused twice in the past, we were asking for LTAC but if the tube is removed, hopefully, we can go ahead and ask for SNF. cc: Fahad Dickey MD
[2016-10-28] MEDS: MYLICON PO PRN (18:41)
--- NOTE | 2016-10-28 19:25 | PROGRESS NOTE ---
DATE: 10/28/2016 PRESENT ILLNESS: The patient is being treated for a symptomatic extended spectrum beta lactamase producing E coli urinary tract infection. MEDICATIONS: The patient has completed a 14 day course of treatment with ertapenem. PHYSICAL EXAMINATION: Vital Signs: Temperature is 98.1 degrees, pulse 97, respirations 18, blood pressure 113/73. General: This is an obese, elderly female who is in no acute distress. Lungs: Clear to auscultation. Cardiovascular: Regular heart rate. Abdomen: Remains distended and swollen. It is not tender. Bowel sounds are present. Thorax: Patient continues to have a PleurX catheter in place. Extremities: Patient has a PICC in her right arm. That site is not erythematous or swollen. Legs: Both legs are edematous. LAB AND X-RAY: CBC today showed a white count of 7730, hemoglobin 9.6, and platelet count 133,000. Creatinine is 0.7. GFR is greater than 60. Liver function studies are normal. Chest x- ray shows decrease in the right basilar pleural effusion and an associated atelectasis. ASSESSMENT AND PLAN: The patient has completed treatment for a urinary tract infection as mentioned above. She does not need any further antibiotics. COMORBIDITIES: Include cirrhosis of the liver, sleep apnea, hypothyroidism and morbid obesity. I am signing off seeing the patient. I am available to see her on a p.r.n. basis. cc: Dereck Young MD
[2016-10-29 06:35] LABS: MANUAL DIFF NEEDED? NO
[2016-10-29 06:48] LABS: BASO% 0.3 % (0.0-0.8); EOS# 0.21 X1000 (0.0-0.7); EOS% 2.8 % (0.0-10.0); HEMATOCRIT 31.7 % (37.0-47.0); HEMOGLOBIN 9.5 g/dL (12.0-16.0); IMM GRAN# 0.02 X1000 (0.0-0.04); IMM GRAN% 0.3 % (0.0-0.5); LYMPH# 0.93 X1000 (1.2-3.4); LYMPH% 12.4 % (20.5-51.1); MCH 30.1 PG (27-31); MCV 100.3 FL (81-99); MONO# 0.83 X1000 (0.11-0.59); MPV 11.3 FL (7.4-10.4); NEUT% 73.2 % (42.2-75.2); PLT 142 X1000 (130-400); RBC 3.16 XMIL (4.2-5.4)
[2016-10-29 07:07] LABS: AGAP 7; ALBUMIN 2.6 g/dL (3.5-5.0); ALKALINE PHOSPHATASE 155 U/L (32-104); BUN 17 mg/dL (8-22); CALCIUM 8.2 mg/dL (8.8-10.2); CHLORIDE 97 mmol/L (98-107); COSMO 278; GOT 37 U/L (10-30); GPT 35 U/L (10-36); SODIUM 137 mmol/L (136-145); TCO2 33 mmol/L (25-35); TOTAL BILIRUBIN 0.68 mg/dL (0.20-1.00); TOTAL PROTEIN 5.7 g/dL (6.3-8.3)
[2016-10-29] MEDS: SYMBICORT 160/4.5 MICROGM INHALER INH SCH ×2 (07:56→19:32)
[2016-10-29] MEDS: NUCYNTA PO SCH ×2 (08:18→21:41)
[2016-10-29] MEDS: XIFAXAN PO SCH ×2 (08:21→21:41)
[2016-10-29] MEDS: LASIX PO SCH (08:21)
[2016-10-29] MEDS: SYNTHROID PO SCH (08:21)
--- NOTE | 2016-10-29 12:25 | PROGRESS NOTE ---
DATE: 10/29/2016 SUBJECTIVE: Patient reports feeling fine. She reports that he was trying to sit up in the chair, and sit up in the bed with physical therapy but she reports that she is very, very weak. OBJECTIVE: Vital Signs: Temperature 97.6 degrees, heart rate 99, respiratory rate 16, blood pressure 129/76 and O2 saturation 98% on 2 L nasal cannula. General Examination: This is a 71- year-old female, chronically ill-looking, lying in bed, in no acute distress. HEENT: Head is normocephalic, atraumatic. Anicteric sclerae and pale conjunctivae. Mucous membranes moist. Neck: Supple. No JVD noted. No carotid bruits. No lymphadenopathy. No thyromegaly. Cardiovascular: S1, S2 heard. No murmurs, gallops, or rubs. Regular rate and rhythm. Respiratory: Decreased breath sounds globally with some crackles in both bases. Patient is not using any accessory muscles or having work of breathing. Abdomen: Soft, a little bit distended. She had a large abdominal wall hernia. Mild bowel sounds present. No organomegaly. Extremities: 3+ lower extremity edema. No clubbing or cyanosis. Peripheral pulses present in both legs. Neurological: Patient alert and oriented x3. Moves 4 extremities. Cranial nerves 2-12 grossly normal. LABORATORY DATA: White cell count 7.53, hemoglobin 9.5, hematocrit 31.7 platelets 142,000. BMP is unremarkable. Albumin 2.6. ASSESSMENT AND PLAN: 1. Urinary tract infection secondary to ESBL E. coli. The patient has received 14 days of antibiotics in this case ertapenem. Dr. Young of Infectious Disease has signed off today. 2. Massive right pleural effusion status post right pleural cath. Dr. Napoles from General Surgery has been following this patient. Last x-ray did not show any pleural effusions so will follow his recommendation about keeping this catheter more time or not. 3. Hyponatremia. That condition is completely resolved. 4. Liver cirrhosis with previous hepatic encephalopathy. The patient is alert and awake. The patient has been started on Pradaxa and we will continue with the same management. Aldactone has been held because of hyperkalemia. When that condition resolves, we can restart that medication. 5. Right lower lobe pneumonia resolved. 6. Hypothyroidism. Will continue with Synthroid home doses. 7. Thrombocytopenia resolved. 8. Morbid obesity, aware. 9. Physical deconditioning. We will continue with physical therapy. 10. Disposition. workers compensation coordinator has been working for placement and unfortunately, she was refused twice for LTAC. I think if Dr. Napoles removed this chest tube this patient can be sent to rehab facility. cc: Osiel Yusuf MD
[2016-10-29] MEDS: ZANAFLEX PO PRN (15:26)
--- NOTE | 2016-10-30 07:21 | Diag Imaging Result Doc PS360 ---
EXAM: CHEST-PORTABLE HISTORY: pleural effusion TECHNIQUE: Portable COMPARISON: 10/28/2016 FINDINGS: No change in the right-sided PICC line. Heart is not enlarged and the vessels are not distended. Atelectasis persists on the right base. No consolidation. Questionable tiny right pleural effusion. IMPRESSION: Stable chest. Electronically signed by Coleman Gonzalez 10/30/2016 7:19 AM
[2016-10-30] MEDS: SYMBICORT 160/4.5 MICROGM INHALER INH SCH ×2 (07:27→19:35)
[2016-10-30] MEDS: NUCYNTA PO SCH ×2 (09:16→21:57)
[2016-10-30] MEDS: XIFAXAN PO SCH ×2 (09:16→21:58)
[2016-10-30] MEDS: SYNTHROID PO SCH (09:17)
[2016-10-30] MEDS: LASIX PO SCH (09:17)
[2016-10-30] MEDS: ZANAFLEX PO PRN ×2 (09:22→22:03)
[2016-10-30] MEDS ORDERED: LASIX IV ONE (13:08)
--- NOTE | 2016-10-30 14:06 | PROGRESS NOTE ---
DATE: 10/30/2016 SUBJECTIVE: Patient reports feeling fine. She reports feeling very weak. Denies any fever or chills. OBJECTIVE: Vital Signs: Temperature 97.0 degrees, heart rate 102, respiratory rate 20, blood pressure 109/72, O2 saturation 96% 2 L nasal cannula. General Examination: This is a 71-year- old, chronically ill-looking, obese female, lying in bed in no acute distress. HEENT: Head is normocephalic, atraumatic. Anicteric sclerae and pale conjunctivae. Mucous membranes moist. Neck: Supple. No JVD noted. No carotid bruits. No lymphadenopathy. No thyromegaly. Cardiovascular exam: S1, S2 heard. No murmurs, gallops, or rubs. Regular rate and rhythm. Respiratory exam: There is a little bit decreasing of breath sounds in the right bases. The patient is not using any accessory muscles or having work of breathing. Abdomen: Soft, a little bit distended. Large abdominal wall with some wall edema. Mild bowel sounds present. No organomegaly. Extremities: Three to four plus lower extremity edema in both lower extremities bilateral. No clubbing or cyanosis. Peripheral pulses present in both legs. Neurological exam: Patient alert and oriented x3. Moves 4 extremities. Cranial nerves 2-12 grossly normal. LABORATORY DATA: Reviewed. ASSESSMENT AND PLAN: 1. Urinary tract infection secondary to extended spectrum beta lactamase Escherichia coli, completely resolved. 2. Massive right pleural effusion status post right pleural catheterization. Dr. Napoles from general surgery has decided to leave the catheter there uncapped, and the x-ray from today just showed very minimal right pleural effusion. The rational for this is that at some point this patient can have reaccumulation of fluid. It is better to leave it there. 3. Hyponatremia, resolved. 4. Liver cirrhosis with previous hepatic encephalopathy. The patient is awake and alert. 5. Right lower lobe pneumonia, resolved. 6. Hypoparathyroidism. We will continue with Synthroid home dosing. 7. Thrombocytopenia, resolved. 8. Morbid obesity, aware. 9. Physical deconditioning. We will continue with physical therapy. DISPOSITION: Now after this chest tube has been removed, there is only a catheter there next to the chest wall. I think this patient can be sent to rehab facility really because they are not supposed to take care of that. That is going to be court ordered. We will see what social work specialist has to say. cc: Osiel Yusuf MD
[2016-10-31] MEDS: SYMBICORT 160/4.5 MICROGM INHALER INH SCH (07:42)
[2016-10-31] MEDS: NUCYNTA PO SCH ×2 (09:29→22:28)
[2016-10-31] MEDS: VITAMIN D PO SCH (09:30)
[2016-10-31] MEDS: SYNTHROID PO SCH (09:30)
[2016-10-31] MEDS: XIFAXAN PO SCH ×2 (09:30→22:28)
[2016-10-31] MEDS: LASIX PO SCH (09:30)
[2016-10-31] MEDS: CALMOSEPTINE OINTMENT TOP PRN (09:31)
[2016-10-31] MEDS: ZANAFLEX PO PRN ×2 (12:58→22:33)
[2016-10-31] MEDS: NON-FORMULARY MED TOP SCH (14:48)
--- NOTE | 2016-10-31 14:49 | PROGRESS NOTE ---
DATE: 10/31/2016 SUBJECTIVE: Patient reports feeling fine. Still noticing moderate swelling in both legs and feeling very weak. Denies any fever or chills. OBJECTIVE: Vital Signs: Temperature 98.2 degrees, heart rate 98, respiratory rate 28, blood pressure 102/81, O2 saturation 98% on 3 L nasal cannula. General Examination: This is a chronically ill looking, frail, obese, 71-year-old female lying in bed, in no acute distress. HEENT: Head is normocephalic, atraumatic. Anicteric sclerae and pale conjunctivae. Mucous membranes moist. Neck: Supple. No JVD noted. No carotid bruits. No lymphadenopathy. No thyromegaly. Cardiovascular: S1, S2 heard. No murmurs, gallops, or rubs. Regular rate and rhythm. Respiratory: Decreased breath sounds in both bases. The patient is not using any accessory muscles or having work of breathing. Abdomen: Soft. A little bit distended. There is some abdominal wall edema noted. Bowel sounds present. No organomegaly. Extremities: There is 4+ pedal edema in both lower extremities. No clubbing or cyanosis. Peripheral pulses present in both legs. Neurological: Patient is alert and oriented x3. Able to move 4 extremities. LABORATORY DATA: Laboratory data reviewed. ASSESSMENT AND PLAN: 1. Urinary tract infection secondary to extended spectrum beta-lactamase Escherichia coli. Completely resolved. 2. Massive right pleural effusion status post right pleural catheterization. Dr. Napoles from general surgery has decided to leave that catheter capped. The plan is to leave it like this and probably in 4 weeks from now she can have follow up with Dr. Galvan and check an x-ray to see if she still needs to have this catheter placed there. 3. Hyponatremia, resolved. 4. Liver cirrhosis with previous hepatic encephalopathy. That condition is completely resolved. Patient is alert and awake. 5. Right lower lobe pneumonia resolved. 6. Hypothyroidism. We will continue with Synthroid home dose. 7. Thrombocytopenia, resolved. 8. Morbid obesity, aware. 9. Physical deconditioning. Physical therapy is on board. 10. Disposition. The patient can be discharged to [facility] now because she is medically stable. No beds today there so we will see if we can send her tomorrow morning. cc: Osiel Yusuf MD
[2016-10-31] MEDS: LASIX IV SCH ×2 (14:52→22:28)
[2016-11-01] MEDS: SYMBICORT 160/4.5 MICROGM INHALER INH SCH ×2 (07:46→19:00)
[2016-11-01] MEDS: SYNTHROID PO SCH (08:44)
[2016-11-01] MEDS: LASIX IV SCH ×2 (08:44→21:17)
[2016-11-01] MEDS: NUCYNTA PO SCH ×2 (08:44→21:16)
[2016-11-01] MEDS: XIFAXAN PO SCH ×2 (08:44→21:16)
--- NOTE | 2016-11-01 14:46 | PROGRESS NOTE ---
DATE: 11/01/2016 SUBJECTIVE: Patient reports feeling fine. Patient requests to have her Zanaflex that she takes at bedtime which helps as muscles relaxant and also helps her sleep. Otherwise patient reports feeling fine. OBJECTIVE: Vitals: Temperature 98.2 degrees, heart rate 89, respiratory rate 17, blood pressure 113/79, pulse oximetry 98% on room air. General examination: This is a chronically ill- looking and frail obese 71-year-old female lying in bed in no acute distress. HEENT: Normocephalic, atraumatic. Anicteric sclerae and pale conjunctivae. Mucous membranes moist. Neck: Supple. No JVD noted. No carotid bruits. No lymphadenopathy. No thyromegaly. Cardiovascular: S1, S2 heard. No murmurs, gallops, or rubs. Regular rate and rhythm. Respiratory: Clear bilaterally to auscultation. No work of breathing or using accessory muscles. Abdomen: Soft, nontender to palpation. Bowel sounds present. No organomegaly. Extremities: 4+ pitting edema on both lower extremities. Neurological: Patient is alert and oriented x3. Moves 4 extremities. LABORATORY DATA: Reviewed. ASSESSMENT AND PLAN: 1. Urinary tract infection secondary to extended spectrum beta-lactamase Escherichia coli resolved. 2. Massive right pleural effusion status post right pleural catheterization, Dr. mahoney has left that catheter capped and cover by dressing. The patient is supposed to leave the hospital with that catheter. 3. Hyponatremia resolved. 4. Liver cirrhosis with previous hepatic encephalopathy resolved. 5. Right lower lobe pneumonia resolved. 6. Hypothyroidism under control receiving Synthroid home doses. 7. Thrombocytopenia resolved. 8. Morbid obesity aware. 9. Physical deconditioning. Physical therapy working with this patient. 10. Disposition. We are waiting for a bed in rehab facility so as soon as we get 1 will transfer her over there. cc: Osiel Yusuf MD
[2016-11-01] MEDS: ZANAFLEX PO PRN (15:01)
[2016-11-01] MEDS: ZANAFLEX PO SCH (21:15)
[2016-11-02] MEDS: SYMBICORT 160/4.5 MICROGM INHALER INH SCH ×2 (08:00→19:49)
[2016-11-02] MEDS: SYNTHROID PO SCH (08:04)
[2016-11-02] MEDS: LASIX IV SCH ×2 (08:04→20:28)
[2016-11-02] MEDS: NUCYNTA PO SCH ×2 (08:04→20:28)
[2016-11-02] MEDS: XIFAXAN PO SCH ×2 (08:04→20:29)
[2016-11-02] MEDS: ZANAFLEX PO PRN (15:20)
--- NOTE | 2016-11-02 16:00 | PROGRESS NOTE ---
DATE: 11/02/2016 SUBJECTIVE: Patient reports feeling fine. She slept last night very well. Patient keeps asking when she is leaving the hospital. OBJECTIVE: Vital Signs: Temperature 98.3 degrees, heart rate 98, respiratory rate 21, blood pressure 120/70, O2 saturation 100% on room air. General Examination: This is a chronically ill- looking and frail, obese 71-year-old female lying in bed, in no acute distress. HEENT: Head is normocephalic and atraumatic. Neck: Supple. No JVD noted. No carotid bruits. No lymphadenopathy. Cardiovascular: S1, S2 heard. No murmurs, gallops, or rubs. Regular rate and rhythm. Respiratory: Clear bilaterally to auscultation. No work of breathing or using accessory muscles. Abdomen: Soft, nontender to palpation. Bowel sounds present. No organomegaly. Extremities: No clubbing or cyanosis but there is 4+ pitting edema in both lower extremities. Neurological: Patient is alert and oriented x3. Moves 4 extremities. Cranial nerves 2-12 grossly normal. LABORATORY DATA: Reviewed. ASSESSMENT AND PLAN: 1. Urinary tract infection secondary to ESBL Escherichia coli. Resolved. 2. Massive right pleural effusion status post right pleural catheterization, Dr. Napoles. Has left the catheter uncovered by dressing. So, this patient can leave the hospital with this catheter. Does not need any special care. 3. Hyponatremia. Resolved. 4. Liver cirrhosis with previous hepatic encephalopathy. That condition is completely resolved. 5. Right lower lobe pneumonia. Resolved. 6. Hypothyroidism. That condition is under control and she is receiving Synthroid home doses. 7. Thrombocytopenia. Resolved. 8. Morbid obesity. Aware. 9. Physical deconditioning. Physical therapy working with this patient. 10. Disposition. supervisor fur floor worker notified about this patient that she needs to go to rehab facility. cc: Osiel Yusuf MD
[2016-11-02] MEDS: ZANAFLEX PO SCH (20:29)
[2016-11-03] MEDS: SYMBICORT 160/4.5 MICROGM INHALER INH SCH ×2 (08:04→19:25)
[2016-11-03] MEDS: NUCYNTA PO SCH ×2 (08:48→21:53)
[2016-11-03] MEDS: SYNTHROID PO SCH (08:48)
[2016-11-03] MEDS: LASIX IV SCH ×2 (08:49→20:49)
[2016-11-03] MEDS: XIFAXAN PO SCH ×2 (08:49→20:49)
[2016-11-03] MEDS ORDERED: MYLICON PO PRN (12:03)
[2016-11-03] MEDS: ZANAFLEX PO PRN (13:23)
--- NOTE | 2016-11-03 17:00 | PROGRESS NOTE ---
DATE: 11/03/2016 SUBJECTIVE: Patient reports fine. The patient slept last night pretty good. No other complaints. OBJECTIVE: Vital Signs: Temperature 98.4 degrees, heart rate 102, respiratory rate 18, blood pressure 119/65, O2 saturation 99% on 2 L nasal cannula. General: This is a chronically ill- looking and frail 71-year-old female lying in bed in no acute distress. HEENT: Head is normocephalic, atraumatic. Anicteric sclerae and pale conjunctivae. Mucous membranes moist. Neck: Supple. No JVD noted. No carotid bruits. No lymphadenopathy. No thyromegaly. Cardiovascular: S1 and S2 heard. No murmurs, gallops, or rubs. Regular rate and rhythm. Respiratory: Clear bilaterally to auscultation. No work of breathing or using accessory muscles. There is a chest tube in the right side of the thorax. Abdomen: Soft, nontender to palpation. Bowel sounds present. No organomegaly. Extremities: No clubbing or cyanosis, but there is 4+ pitting edema in both lower extremities. Neurological: Patient alert and oriented x3. Moves 4 extremities. LABORATORY DATA: Reviewed. ASSESSMENT AND PLAN: 1. Urinary tract infection, secondary to extended-spectrum beta-lactamase Escherichia coli, resolved. 2. Massive right pleural effusion, status post right pleural catheterization. Dr. Napoles from General Surgery has left the catheter uncovered by dressing so patient can leave the hospital with this catheter. It does not need any special care. 3. Hyponatremia, resolved. 4. Liver cirrhosis with previous hepatic encephalopathy. At this time patient's condition is completely resolved. 5. Right lower lobe pneumonia, resolved. 6. Hypothyroidism. We will continue with the same doses of Synthroid. 7. Thrombocytopenia, resolved. 8. Morbid obesity, aware. 9. Physical deconditioning and physical therapy working with this patient. 10. Disposition. sand car worker aware of this patient's rehabilitation placement. cc: Osiel Yusuf MD
[2016-11-03] MEDS: ZANAFLEX PO SCH (20:49)
[2016-11-04] MEDS: SYMBICORT 160/4.5 MICROGM INHALER INH SCH (07:33)
--- NOTE | 2016-11-04 08:56 | Diag Imaging Result Doc PS360 ---
EXAM: CHEST, SINGLE VIEW HISTORY: Shortness of breath TECHNIQUE: Sitting AP COMPARISON: 10/30/2016 FINDINGS: Poor inspiratory effort. No change in the right-sided PICC line. There is basilar atelectasis. No consolidation. Questionable small right pleural effusion. The vessels are not distended. Heart is not enlarged. Surgical clips in the lower neck. IMPRESSION: Basilar atelectasis with possibly a small right pleural effusion. Electronically signed by Coleman Gonzalez 11/04/2016 8:54 AM
[2016-11-04] MEDS: SYNTHROID PO SCH (10:37)
[2016-11-04] MEDS: LASIX IV SCH (10:37)
[2016-11-04] MEDS: XIFAXAN PO SCH (10:37)
[2016-11-04] MEDS: NUCYNTA PO SCH (10:37)
[2016-11-04] MEDS ORDERED: DUONEB (A & A) INH PRN (12:20)
[2016-11-04 15:49] VITALS: BP 118/75
--- NOTE | 2016-11-04 16:30 | DISCHARGE SUMMARY ---
ADMISSION DATE: 09/26/2016 DISCHARGE DATE: 11/04/2016 CONSULTATIONS: 1. Sarita Galvan MD with Pulmonology. 2. Evi Gutiérrez MD with Gastroenterology. 3. Carlitos Napoles MD with General Surgery. 4. Dereck Young MD with Infectious Disease. PERTINENT PROCEDURES: 1. Abdominal x-ray showed development of opacification on the right hemothorax which may be due to a combination of a pleural effusion, atelectasis, and infiltrate. 2. Chest x-ray showed persistent opacification of the right hemothorax. 3. Chest CT showed minimal pleural fluid in the left major fissure, increased ascites otherwise stable, and a massive pleural effusion on the right with complete atelectasis of the right lung. 4. Placement of a right PleurX catheter by Dr. Napoles. 5. Bilateral Venous Dopplers, was a limited study secondary to the patient's morbid obesity but no acute deep or superficial venous thrombosis. 6. Abdominal ultrasound was a limited study, showed ascites and cirrhosis. DISCHARGE DIAGNOSES: 1. Urinary tract infection secondary to extended-spectrum beta-lactamase Escherichia coli, resolved. 2. Massive right pleural effusion status place right PleurX catheter. General Surgery is going to leave the drain in place but no plans for any drainage through the PleurX catheter at discharge. 3. Hyponatremia, resolved. 4. Liver cirrhosis with previous hepatic encephalopathy. Encephalopathy has resolved. 5. Right lower lobe pneumonia, resolved. 6. Hypothyroidism. Continue Synthroid. 7. Thrombocytopenia, resolved. 8. Morbid obesity, aware. 9. Physical deconditioning. Physical therapy has been working with the patient. HOSPITAL COURSE: Ms. Hernández is a 71-year-old, morbidly obese female, with history of morbid obesity, COPD on home O2, hypertension, remote jejunal ileal bypass for weight loss and , cirrhosis of the liver. Presented to the ED from rehab facility with increased shortness of breath, lower extremity edema, confusion. She does have a history of chronic lower extremity edema although prior to her admission over the last 4-6 weeks, per the , despite treatment nothing has helped. In the ED, the patient had a chest x-ray that showed a massive right pleural effusion. Of note she was status post thoracentesis on 09/16/2016 having greater than 2 L drained at that time. The patient at that time was not complaining of any shortness of breath, although she was confused and in some mild respiratory distress. She was noted to have O2 saturations 96% to 98% on 5 L nasal cannula. At the time of her admission she was lethargic in mild respiratory distress, did not answer any questions. At intervals she would smile or laugh out loud. Her stated that she had been this way and it had been increasing over the last 24 hours. Due to lack of subspecialty, the patient was transferred to [facility] ICU for pulmonary and GI consult. She was also noted to have ammonia level of 145 and administered lactulose. She was seen by Pulmonology as well as GI. Pulmonology recommended a surgical consult for recurrent pleural effusions. She did undergo placement of a right PleurX catheter with Dr. Napoles. She was continued on Lasix and spironolactone as well as lactulose given her liver cirrhosis. She was having good drainage from her PleurX catheter. Her breathing improved. Her mental status improved. Dr. Harden Young right lower lobe pneumonia as well as an ESBL E. coli UTI that have both been treated. Nephrology was also involved secondary to patient's hyponatremia that has also been resolved completely. Patient spent many days with her PleurX catheter draining. Around 10/26/2016 they started clamping her PleurX catheter to see how she tolerated. She was tolerating that well. Her right pleural effusion has nearly resolved. She has had several repeat chest x- rays. Dr. Napoles has opted to leave in the PleurX catheter and will keep it clamped. Wood Grinder has found rehab placement for the patient. She is stable for discharge today. VITAL SIGNS: Temperature is 97.7 degrees, heart rate 95, respirations 20, blood pressure is 111/78, O2 is 97% on 3 L nasal cannula. DISCHARGE DIET: Regular. DISCHARGE MEDICATIONS: As per Dr. Oglesby. Please see MAY. FOLLOW-UP: Ms. Hernández is being discharged to rehab. She will follow up with Dr. Napoles as instructed, Dr. Galvan after rehab for sleep study, her primary care physician, Dr. Elías Oh, and Dr. Gutiérrez. The patient can return to the ED for any worsening of symptoms. DISCHARGE TIME: Greater than 40 minutes. Dictated by MJ Ruth for Osiel Yusuf MD cc: MD Elías Mcduffie MD
[2016-11-04] MEDS ORDERED: RELAFEN PO SCH (21:00)
[2016-11-26] MEDS ORDERED: DIPRIVAN 1% ONE (07:33)
[2016-11-26] MEDS ORDERED: XYLOCAINE-MPF 2% ONE (07:34)
[2016-11-26] MEDS ORDERED: VERSED ONE (08:40)
== END 2016-11-04 18:13 ==
LOC: 3N 14:49 → P.ED 14:49 → OBSVTOIN 18:50 → SUATTDRO 18:50 → 3N 19:30
PROVIDERS: ATTEND Internal Medicine

== ENCOUNTER 2016-11-19 12:29 | Inpatient (IN) ==
--- NOTE | 2016-11-19 14:44 | Diag Imaging Result Doc PS360 ---
EXAM: CHEST-PORTABLE HISTORY: edema TECHNIQUE: Portable upright COMPARISON: 11/14/2016 FINDINGS: The right-sided PICC line has been removed. Heart is not enlarged. The vessels are not distended. Mild increased markings in the right base persist. Overall the lungs are slightly better expanded on the current exam. The overall appearance is similar to that of the prior exam. IMPRESSION: Overall improved inspiratory effort, otherwise stable exam. Electronically signed by Coleman Gonzalez 11/19/2016 2:42 PM
[2016-11-19 14:50] LABS: URINE MICRO REVIEW NEEDED? NO; URINE SOURCE CATH
[2016-11-19 14:57] LABS: BILIRUBIN URINE NEGATIVE (NEGATIVE); BLOOD URINE TRACE (NEGATIVE); COLOR YELLOW; GLUCOSE URINE NEGATIVE (NEGATIVE); LEUKOCYTES URINE LARGE (NEGATIVE); NITRITE URINE POSITIVE (NEGATIVE); PH URINE 5.5; PROTEIN URINE NEGATIVE (NEGATIVE); SP GRAVITY URINE 1.009; TURBIDITY URINE HAZY (CLEAR); UR EPITHELIAL CELLS <10 /HPF (<10); URINE BACTERIA 1+ /HPF; URINE CULTURE NEEDED? YES; URINE RBC <10 /HPF (<10); URINE WBC TNTC /HPF (<10); UROBILINOGEN URINE NORMAL (NORMAL)
[2016-11-19 16:00] LABS: MANUAL DIFF NEEDED? NO
[2016-11-19 16:03] LABS: BASO% 0.3 % (0.0-0.8); EOS# 0.29 X1000 (0.0-0.7); IMM GRAN# 0.04 X1000 (0.0-0.04); IMM GRAN% 0.3 % (0.0-0.5); LYMPH# 1.39 X1000 (1.2-3.4); LYMPH% 9.7 % (20.5-51.1); MCH 29.6 PG (27-31); MCHC 31.4 g/dL (33-37); MCV 94.1 FL (81-99); MONO% 10.4 % (1.7-9.3); MPV 11.1 FL (7.4-10.4); NEUT% 77.3 % (42.2-75.2); PLT 168 X1000 (130-400); RBC 3.72 XMIL (4.2-5.4)
[2016-11-19 16:19] LABS: INR 1.18; PROTIME 12.5 Seconds (9.2-11.7); PTT 28.5 Seconds (22.0-36.0)
[2016-11-19 16:24] LABS: ALBUMIN 2.7 g/dL (3.5-5.0); CALCIUM 8.3 mg/dL (8.8-10.2); MAGNESIUM 1.8 mg/dL (1.5-2.7); POTASSIUM 4.5 mmol/L (3.5-5.1); TOTAL BILIRUBIN 1.02 mg/dL (0.20-1.00); TOTAL PROTEIN 6.7 g/dL (6.3-8.3)
[2016-11-19] MEDS ORDERED: ROCEPHIN 1 GM in NS 50 ML IV ONE (16:57)
--- NOTE | 2016-11-19 17:41 | PROVIDER DOCUMENTATION ---
This chart was entered by Marichuy Leahy Scribe, acting as scribe for Jm Alejo PA. HPI-General Adult - General Chief Complaint: Abnormal Lab[s] Stated Complaint: fluid overload Time Seen by Provider: 11/19/16 14:09 Source: patient Allergies/Adverse Reactions: Patient Allergies Allergy/AdvReac Type Severity Reaction Status Date / Time iodine Allergy Severe rash, red Verified 03/03/13 09:36 face,itching Iodinated Contrast- Oral and Allergy Unknown Verified 12/14/15 09:52 IV Dye Home Medications: Home Medication List Medication Instructions Recorded Confirmed Last Taken Type Levothyroxine [Synthroid] 150 microgm PO DAILY 03/03/13 11/19/16 11/18/16 History Tizanidine HCl 4 mg PO Q8H PRN 03/03/13 11/19/16 11/18/16 History Budesonide/Formoterol Fumarate 1 puff INH BID 12/11/15 11/19/16 11/18/16 History [Symbicort 160-4.5 Mcg Inhaler] Bumetanide 1 mg PO BID 09/10/16 11/19/16 11/18/16 History Bisacodyl [Dulcolax] 10 mg PA DAILY #60 supp 09/17/16 11/19/16 11/18/16 Rx Spironolactone [Aldactone] 50 mg PO DAILY #60 tablet 09/17/16 11/19/16 11/18/16 Rx Lactulose 30 ml PO Q12H #1 09/18/16 11/19/16 11/18/16 Rx Simethicone Chew [Mylicon] 80 mg PO 4XDAY PRN PRN #60 tablet 09/18/16 11/19/16 11/18/16 Rx Albuterol 2.5MG/Ipratrop 0.5MG 3 ml INH Q6H PRN PRN #10 neb 11/04/16 11/19/16 Rx [Duoneb] Buprenorphine [Butrans] 20 mcg TD WE #4 patch.tdwk 11/04/16 11/19/16 11/18/16 Rx Ergocalciferol (Vitamin D2) 50,000 unit PO Q7D #4 capsule 11/04/16 11/19/16 Rx [Vitamin D] Furosemide [Lasix] 40 mg PO DAILY #90 tablet 11/04/16 11/19/16 11/18/16 Rx Nabumetone [Relafen] 500 mg PO BID #60 tablet 11/04/16 11/19/16 11/18/16 Rx Tapentadol HCl [Nucynta] 50 mg PO BID #60 tablet 11/04/16 11/19/16 11/18/16 Rx Tizanidine [Zanaflex] 4 mg PO QHS #30 tablet 11/04/16 11/19/16 11/18/16 Rx Ondansetron HCl [Zofran] 4 mg PO Q6HR PRN 11/19/16 11/19/16 Unknown History - History of Present Illness -Gen Adult Nature of Presenting Problems: 71 yo F with extensive recent hx of CHF exacerbation and multiple hospital admissions for such presents to ED from rehab with cc of bilateral lower extremity swelling and bvjvmpxj-qhjv-qegfyezc creatinine. Pt has been in rehab since her last discharge from this hospital, and she has had a capped-off chest tube in her L lung for 4 weeks. Upon arrival to ED, pt appears nontoxic and is in no apparent distress. Location of Pain/Injury: reports: lower extremity (bilateral edema) Severity: reports: moderate Onset/Duration: reports: gradual Timing: reports: still present, getting worse Context/Activities at Onset: reports: none Associated Symptoms: denies: genitourinary problems, nausea, vomiting Similar Symptoms Previously?: Yes Recently seen or treated by another doctor?: Yes Review of Systems - Adult - REVIEW OF SYSTEMS - ADULT Constitutional: reports: no symptoms reported. denies: chills, fever Eyes: reports: no symptoms reported. denies: blurred vision, double vision Ears, Nose, Mouth & Throat: reports: no symptoms reported. denies: sinus problem, nose pain Cardiovascular: reports: edema (bilateral lower extremeties) Respiratory: reports: no symptoms reported. denies: hemoptysis, shortness of breath Gastrointestinal: reports: no symptoms reported. denies: abdominal pain, nausea Genitourinary: reports: no symptoms reported. denies: dysuria, flank pain Musculoskeletal: reports: no symptoms reported. denies: back pain, joint pain Integumentary: reports: no symptoms reported. denies: hives, skin sores/ulcer Neurological: reports: no symptoms reported. denies: dizziness/vertigo, headache/migraines Psychiatric: reports: no symptoms reported. denies: anxiety, depression Endocrine: reports: no symptoms reported. denies: cold intolerance, heat intolerance Hematologic/Lymphatic: reports: no symptoms reported. denies: blood clots, lymphedema Allergic/Immunologic: reports: no symptoms reported. denies: allergic reactions , eczema All Other Systems: Reviewed and Negative Past History - Adult - PAST MEDICAL HISTORY-ADULT Review of Records: reports: Old Records Reviewed, Nursing Assessment Review, Medications Reviewed Cardiovascular: reports: CHF, HTN Respiratory: reports: asthma, COPD Gastrointestinal: reports: liver disease (cirrhosis) - PRIOR SURGERIES/PROCEDURES Surgical/Procedure History: reports: cholecystectomy - IMMUNIZATION STATUS Childhood Immunizations: See Nurse Assessment Flu Vaccine: See Nurse Assessment - FAMILY HISTORY Family History: reviewed, not pertinent Physical Exam-General - PHYSICAL EXAM-ADULT Initial Vital Signs Reviewed: Yes - CONSTITUTIONAL General Appearance: alert, no apparent distress, obese - EYES Eyes: PERRL/EOMI, pink conjunctivae - HEAD, EARS, NOSE, MOUTH & THROAT HENMT: normocephalic/atraumatic, moist mucous membranes - NECK Neck: non-tender, full range of motion - RESPIRATORY Respiratory: other (diminished breath sounds; capped off chest tube noted in L lung, pt reports for 4 weeks) - CARDIOVASCULAR Cardiovascular: other (bilateral 4+ pitting edema in lower extremities, worse on R) - GASTROINTESTINAL (ABDOMEN) Abdominal Exam: normal bowel sounds, non tender, soft - LYMPHATIC Lymphatic: no adenopathy - MUSCULOSKELETAL Back Exam: normal inspection Extremity: pedal edema (bilateral 4+, worse on R) - SKIN Integumentary: normal color - NEUROLOGIC Neurologic: grossly normal, no motor/sensory deficits - PSYCHIATRIC Psych/Mental Status: normal mood/affect, normal thought content, normal thought process, oriented x 3 Progress - PLAN OF CARE/RESULTS Progress/Plan/Lab Results: Vital Signs - 8 hr 11/19/16 13:27 11/19/16 13:52 Temperature 98.3 F Pulse Rate 88 89 Respiratory Rate 18 17 Blood Pressure 119/55 133/80 O2 Sat by Pulse Oximetry 100 98 Laboratory Results - last 24 hr 11/19/16 14:44 Urine Source CATH Urine Color YELLOW Urine Turbidity HAZY Urine pH 5.5 Ur Specific [place] 1.009 Urine Protein NEGATIVE Ur Glucose (Stick) NEGATIVE Ur Ketones (Stick) NEGATIVE Urine Blood TRACE A Urine Nitrite POSITIVE A Urine Bilirubin NEGATIVE Urobilinogen Dipstick NORMAL Urine Leukocytes LARGE A Urine WBC (Auto) TNTC A Urine RBC (Auto) <10 U Epithel Cells (Auto) <10 Urine Bacteria (Auto) 1+ Orders Category Date Time Status Saline Loc NOW Care 11/19/16 14:11 Active CHEST-PORTABLE [RAD] Stat Exams 11/19/16 14:11 Completed CBC WITH ELECTRONIC DIFF [HEME] Stat Lab 11/19/16 14:28 Ordered CK PROFILE [SP CHEM] Stat Lab 11/19/16 14:28 Ordered COMPREHENSIVE METABOLIC PANEL [CHEM] Stat Lab 11/19/16 14:28 Ordered MAGNESIUM [CHEM] Stat Lab 11/19/16 14:28 Ordered PRO B-NATRIURETIC PEPTIDE Stat Lab 11/19/16 14:28 Ordered PROTIME WITH INR [COAG] Stat Lab 11/19/16 14:28 Ordered PTT [COAG] Stat Lab 11/19/16 14:28 Ordered TROPONIN T Stat Lab 11/19/16 14:28 Ordered UA NIMS W/REFLEX CULT [URINALYSIS] Stat Lab 11/19/16 14:44 Completed EKG [EKG] Stat Ther 11/19/16 14:11 Ordered Medical decision making: Ms. Hernández has worsening renal function is worsening and she has UTI. Will admit for for IV abx, monitoring of renal function. Changing mistry here. Case and plan of care discussed with Dr. Razo. Result Diagrams: 11/19/16 15:33 11/19/16 15:33 - XRAY 1 XRAY Study: Chest Impression: See EMR Report (NAF) - ULTRASOUND (By Radiology) 1 US Study: other Impression: Normal (BLE: no evidence of DVT but very limited exam.) - CONSULTS/PCP/HOSPITALIST Notification #1 *Consult/PCP/Hospitalist*: Jam TOE P[employer]ER for Dr. Peterson Time Discussed: 17:13 Consult Disposition: Admit Departure - Departure Date of Disposition Decision: 11/19/16 Time of Disposition Decision: 17:15 DIAGNOSIS: Renal insufficiency, Elevated troponin Edema Qualifiers: Edema type: unspecified Qualified Code(s): R60.9 - Edema, unspecified UTI (urinary tract infection) Qualifiers: Urinary tract infection type: site unspecified Hematuria presence: without hematuria Qualified Code(s): N39.0 - Urinary tract infection, site not specified Leukocytosis Qualifiers: Leukocytosis type: other Qualified Code(s): D72.828 - Other elevated white blood cell count Disposition: HOME 01 Certified Medical Emergency: Urgent Condition: Stable Referrals and Follow-Ups: Alice Neri MD [NON-STAFF PROVIDER] - - Critical Care Note This patient required my direct & personal management of CC.: No Attestation - Physician/ MAINE Attestation Patient care was provided by Advanced Practice Provider:: Yes Advanced Practice Provider documentation review:: The Mid-level provider documentation, treatment plan and medical decision making was reviewed by the physician who agrees with all treatment and medical decision making by the MLP. The physician spent face to face time with patient:: No Advanced Practice Provider documentation review:: Supervising physician onsite and consulted in the evaluation and care of this patient. The physician did not have a face to face encounter with the patient. This chart was documented by the indicated scribe, (Marichuy Leahy Scribe) and accurately reflects the services I performed and decisions made by me, Jm Alejo PA, as attested by the provider's signature.
[2016-11-19] MEDS ORDERED: MYLICON PO PRN (20:17)
[2016-11-19] MEDS ORDERED: ZOFRAN IV PRN ×2 (20:20→22:09)
[2016-11-19] MEDS ORDERED: LASIX IV ONE (20:20)
[2016-11-19] MEDS ORDERED: ALBUMIN 25% IV SCH (20:30)
[2016-11-19] MEDS ORDERED: LACTULOSE PO SCH (20:30)
[2016-11-19] MEDS ORDERED: LASIX 100 MG in NS 90 ML IV SCH (20:30)
[2016-11-19] MEDS ORDERED: HEPARIN SUBQ SCH (21:00)
--- NOTE | 2016-11-19 21:23 | HISTORY AND PHYSICAL ---
PRIMARY CARE PHYSICIAN: Elías Oh MD. REASON FOR ADMISSION: One-week history of progressive abdominal and lower extremity swelling. HISTORY OF PRESENT ILLNESS: Ms. Traci Hernández is a 71-year-old lady with past medical history of COPD on home O2 and nebulizers, hypertension, cirrhosis of the liver secondary to fatty liver disease, morbid obesity, hypothyroidism, who was recently discharged from our facility on 11/04/2016. On that last admission, she was admitted here because she had a huge effusion which required permanent placement of a right Pleurx catheter. She was severely deconditioned and she was sent to a long term facility where she has been up until today. While she was at the alf, they noticed that over the last 3 days her lower extremity edema had been getting worse and the extremities had been weeping. No redness. No calf pain per the patient. No cough, no fever, no chills. No cardiorespiratory complaints. No genitourinary complaints. No change in her urinary volume. She does admit to abdomen being distended with some mild occasional tenderness, sporadic and spontaneous tenderness, no specific aggravating or relieving factors. REVIEW OF SYSTEMS: Twelve system review was very limited due to the fact that the patient does not have a very good cognitive baseline. She said most of the time her history is usually handled by her who was not at bedside. ALLERGIES: The patient is allergic to iodine, oral and IV, and some unspecified antianxiety medication. HOME MEDICATIONS: 1. Symbicort 164.5 b.i.d. 2. Bumex 1 b.i.d. 3. Butrans 20 mcg weekly. 4. Vitamin D q. Weekly. 5. Furosemide 40 mg daily. 6. Relafen 500 mg b.i.d. 7. Zofran 4 mg q.6. 8. Nucynta 50 mg b.i.d. 9. Tizanidine 4 mg at bedtime and 4 mg q.8. 10. DuoNeb q.6 p.r.n. 11. Dulcolax 10 mg p.r.n. 12. Lactulose 30 mg q.12. 13. Levothyroxine 150 mcg daily. 14. Simethicone 4 times a day p.r.n. 15. Aldactone 50 mg daily. SURGICAL HISTORY: The patient had a Pleurx drain put in within the last 1 month. . Rotator cuff surgery. Cholecystectomy. Gastric bypass. Thyroidectomy. SOCIAL HISTORY: Patient used to live with her until a few weeks ago. She is now in the rehab facility. Quit smoking 3 years ago. No illicit drug use or alcohol. FAMILY HISTORY: Notable for breast cancer, diabetes, asthma. LABORATORY WORK AND IMAGING: White count 14,000. hemoglobin and hematocrit 11 and 35, platelets 168,000. BUN 31, creatinine 2, AST 420, ALT 14, alkaline phosphatase 116. Troponin 0.109. ProBNP 531. PT 12. INR 1.1. Urinalysis shows positive nitrites, xay-pbubhaho-aa-count white cells. Chest x-ray does not show any acute cardiopulmonary process. EKG yet to be performed. PHYSICAL EXAMINATION: GENERAL: Morbidly obese elderly woman who is not in acute distress. She is laying flat on her back and she informs me that she has no PND orthopnea. She is alert and oriented to person, place, and time, although there is some degree of bradyphrenia. HEENT: Head is normocephalic, atraumatic. Eyes, JONI. EOMI. She is anicteric, not pale. VITAL SIGNS: Blood pressure is 168/86, heart rate is 105, respirations 21, temperature 98.3. On 2 L. NECK: Short and thick. There is positive JVD but no hepatojugular reflux. No bruit. No thyromegaly. CHEST: Surprisingly clear to auscultation, but decreased air entry in the bases. CARDIOVASCULAR: First and second heart sounds heard. No gallops, murmurs, rubs. Rhythm is regular. ABDOMEN: Protuberant, soft, with superficial subcutaneous edema in the abdomen. She has a large reducible ventral hernia also noted. Not tender. Bowel sounds are hypoactive. RECTAL: Deferred at this time. EXTREMITIES: Patient has 3+ pitting edema in the legs extending up to the mid thigh. Pulses distally in the lower extremity are diminished, but symmetrical compared to the upper extremities. No clubbing or peripheral cyanosis. No asterixis or tremor. NEUROLOGICAL: No focal deficits appreciated. SKIN: She has a moderate degree of xerosis. MUSCULOSKELETAL: Muscular exam grossly normal. No focal deficits appreciated. ASSESSMENT AND PLAN: 1. Anasarca, multifactorial, could be related to underlying liver disease. Cannot rule out coexisting renal disease based on decline in creatinine from 1 to 2 over the last 2 weeks. We will start patient on diuretics, Lasix IV push and continue with drip and albumin to mobilize fluid. The patient albumin is 2.7. This could very likely be due to the presence of a Pleurx drain which can cause severe protein losses and subsequently cause hypoalbuminemia which can contribute to this patient's anasarca. Discussion will need to be held with Dr. Galvan whether this needs to be continued. 2. Acute kidney injury probably secondary to depleted intravascular volume from losses through the Pleurx drain and excessive overdiuresis. For now, I will follow creatinine closely while on the drip and if this continues to worsen, will consider discontinuing the Lasix drip. 3. Abnormal cardiac enzymes. I will do serial cardiac enzymes. This could also be related to the patient's kidney disease, although underlying ischemia needs to be evaluated and I will consult Cardiology to see patient regarding this and we will repeat an EKG and consider an echo if deemed necessary. 4. Hypertension. Continue Aldactone and diuretics for blood pressure control. Consider beta blockers also in light of the abnormal cardiac enzymes and underlying cirrhosis with portal hypertension. 5. Urinary tract infection. Start on Rocephin and follow cultures. cc: MD Elías Isabel MD
[2016-11-19] MEDS ORDERED: DUONEB (A & A) INH SCH (22:00)
[2016-11-19] MEDS: LACTULOSE PO SCH (23:18)
[2016-11-19] MEDS: ALBUMIN 25% IV SCH (23:19)
[2016-11-20] MEDS: LASIX 100 MG in NS 90 ML IV SCH (01:24)
[2016-11-20] MEDS: ALBUMIN 25% IV SCH ×3 (05:27→08:54)
[2016-11-20 06:27] LABS: MANUAL DIFF NEEDED? NO
[2016-11-20 06:33] LABS: BASO% 0.3 % (0.0-0.8); EOS# 0.32 X1000 (0.0-0.7); EOS% 2.9 % (0.0-10.0); HEMATOCRIT 32.4 % (37.0-47.0); HEMOGLOBIN 10.2 g/dL (12.0-16.0); IMM GRAN# 0.03 X1000 (0.0-0.04); IMM GRAN% 0.3 % (0.0-0.5); LYMPH# 1.17 X1000 (1.2-3.4); LYMPH% 10.8 % (20.5-51.1); MCH 29.7 PG (27-31); MCHC 31.5 g/dL (33-37); MCV 94.5 FL (81-99); MONO# 1.11 X1000 (0.11-0.59); MONO% 10.2 % (1.7-9.3); MPV 11.2 FL (7.4-10.4); NEUT% 75.5 % (42.2-75.2); PLT 148 X1000 (130-400); RBC 3.43 XMIL (4.2-5.4)
[2016-11-20 06:58] LABS: CALCIUM 8.2 mg/dL (8.8-10.2); TOTAL BILIRUBIN 1.46 mg/dL (0.20-1.00); TOTAL PROTEIN 6.6 g/dL (6.3-8.3)
[2016-11-20] MEDS ORDERED: SYNTHROID PO SCH (07:00)
[2016-11-20] MEDS: ALDACTONE PO SCH (09:00)
[2016-11-20] MEDS ORDERED: DULCOLAX PR SCH (09:00)
[2016-11-20] MEDS: LACTULOSE PO SCH ×2 (09:00→21:43)
[2016-11-20] MEDS ORDERED: ALDACTONE PO SCH (09:00)
--- NOTE | 2016-11-20 11:37 | CONSULTATION ---
DATE OF CONSULTATION: 11/20/2016 REASON FOR CONSULTATION: Evaluation of the patient with anasarca. HISTORY OF PRESENT ILLNESS: This is a patient who is known to me from previous hospitalization. Last hospitalization was on 09/26/2016. During that stay, the patient had a prolonged stay. She had right-sided pleural effusion which was not resolving and therefore a chest tube was placed. The catheter is still in situ but it is not connected to any drain at this point. [facility]. Before that, she was staying with her at home. For 3 days, the jail noticed that the patient was having increasing swelling of her lower extremities and also abdomen. Therefore, the patient was transferred to the ER and she was evaluated in the ER. Based on their notes, I have found out that the patient has gained a lot more weight and her lower extremities are extremely swollen which are weeping with some amount of cellulitis. The patient had chronic lower extremity edema but after hospitalization, the edema usually responded to diuretics and there had been improvement but currently, she has much more edema than before. Her anterior abdominal wall also has edema. The patient is kept in the ER because of lack of a room. She is on IV infusion of Lasix. In the past, she was seen by the green end man, Dr. Roman, for renal insufficiency. The patient has cirrhosis of the liver secondary to a jejunoileal bypass in the past and maybe fatty metamorphosis of the liver. She also has history of morbid obesity contributing to the cirrhosis of the liver and secondary to fatty liver. The patient seems to have had a Child's class A cirrhosis of the liver which is probably progressing to class B at this point. PAST MEDICAL HISTORY: 1. Morbid obesity. 2. Chronic arthritis involving most of her joints. 3. Severe advanced chronic pulmonary disease with possibility of cor pulmonale and right heart failure. She is on oxygen and inhalers. 4. Hypertension. 5. Hypothyroidism. 6. 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 7. Obstructive sleep apnea. 8. Fatty metamorphosis of the liver going on to Child's class B cirrhosis of the liver due to obesity and jejunoileal bypass. PAST SURGICAL HISTORY: 1. sections x2. 2. Right shoulder surgery for rotator cuff. 3. Cholecystectomy by Dr. Jenkins. 4. Remote jejunoileal bypass for weight control. 5. Tubal ligation. 6. Partial thyroidectomy. Patient is mostly obese and she is mostly bedridden. FAMILY HISTORY: There is history of arthritis, asthma, breast cancer, diabetes mellitus, hypertension, and COPD in the family. Her mother and brother had leg cramps. REVIEW OF SYSTEMS: The patient does not seem to have any shortness of breath at this point. She is lying flat. Her bowels are moving secondary to lactulose. She has some vague generalized abdominal pain. Main problem is swelling of the abdomen and also bloating. She has pedal edema of both lower extremities with some cellulitis and weeping at the time of entry which has improved. She denies any fever or chills. PHYSICAL EXAMINATION: Vital Signs: Her temperature is 98.5. Pulse rate is 104 per minute, respiratory rate is 70, blood pressure is 121/66. General: She does not seem to be in any acute distress. Morbidly obese. Skin: Warm and dry. The lower extremities show erythema and some puckering of the skin with small areas of dermatitis. Both lower extremities are extremely swollen with puffiness of both feet. Neck: Supple. There is no thyromegaly. Cardiac: Both heart sounds are heard. Rhythm is tachycardic. I could not hear any murmur. Lungs: Reveal bilateral basilar crackles and poor air entry. Abdomen: Extremely protuberant with anterior abdominal edema and abnormal veins on the anterior abdominal wall. There is a large ventral hernia present. I could not evaluate clinically for any ascites because of the patient's extreme morbidity and inability to move her. There might be some ascites which might be only minimal. Extremities: As described above. On examination of their upper extremities, there is no flapping tremor. LABORATORY DATA: The latest WBC count is 10.86, hemoglobin 10.2, hematocrit was 32.4 which is similar to what she was having at the time of her previous hospitalization, the platelet count is 148,000. The sodium is 138, potassium 4, chloride is 91, CO2 is 39, the BUN is 31, creatinine is 1.9, the total calcium is 8.2. Bilirubin is 1.46. Glucose is 99. The AST is 24, ALT is 15, alkaline phosphatase is 113, the total protein is 6.6, albumin is 3. The patient received 25 g of albumin infusion yesterday. The TSH is 2.54. IMPRESSION: 1. Anasarca. 2. Chronic obstructive pulmonary disease with the possibility of cor pulmonale and right-sided heart failure. 3. History of right-sided large pleural effusion. 4. Cirrhosis of the liver secondary to fatty liver due to morbid obesity and jejunoileal bypass. 5. Urinary tract infection. 6. Renal insufficiency. RECOMMENDATION: As far as her cirrhosis of the liver, all that can be done is give her diuretics and she is already on Aldactone and Lasix by mouth. Currently, she is on furosemide infusions. I would recommend she be seen by Dr. Roman who might be fine tuning the diuretic therapy for her. The patient has multiple factors contributing to her anasarca. Giving albumin infusions for a few days would be very appropriate. I have explained in the past about her cirrhosis of the liver to her and her , and also to the primary care doctor who is taking care of her. Nothing more can be done regarding her cirrhosis of the liver at this point. cc: MD Shayan Mullins MD Olakunle P. Akinsoto, MD
[2016-11-20] MEDS: SODIUM CHLORIDE 0.9% INJ SCH (13:36)
[2016-11-20] MEDS: PROTONIX IV SCH (13:36)
[2016-11-20 15:05] LABS: ALBUMIN 3.7 g/dL (3.5-5.0); CALCIUM 8.9 mg/dL (8.8-10.2)
--- NOTE | 2016-11-20 15:58 | PROGRESS NOTE ---
DATE: 11/20/2016 SUBJECTIVE: Patient reports feeling very hungry. Denies any fever or chills. Reports worsening swelling in both legs. OBJECTIVE: Vital Signs: Temperature 98.1 degrees, heart rate 103, respiratory rate 18, blood pressure 149/70, O2 saturation 100% on 2 L nasal cannula. General Examination: This is a morbidly obese, female lying in bed, in no acute distress. HEENT: Head is normocephalic, atraumatic. Anicteric sclerae and pale conjunctivae. Mucous membranes moist. Neck: Supple. No JVD noted. No carotid bruits. No lymphadenopathy. No thyromegaly. Cardiovascular: S1, S2 heard. No murmurs, gallops, or rubs. Regular rate and rhythm. Respiratory: Bibasilar crackles and globally decreased air entry. The patient is not using any accessory muscles or having work of breathing. Abdomen: Soft, nontender to palpation. Bowel sounds present. No organomegaly. Extremities: Marked edema in both lower extremities, feet, legs, abdomen, up to middle thigh both sides. In the right inner thigh there is a big area of erythema that is also warm and painful to palpation compatible with cellulitis. Neurological: Patient is alert and oriented x3. Moves 4 extremities. LABORATORY DATA: White cell count 10.86, hemoglobin 10.2, hematocrit 32.4, platelets 148,000. BMP is remarkable for creatinine 1.3 today. ASSESSMENT AND PLAN: 1. Anasarca. The patient is currently on Lasix drip. We will continue with the same management. 2. Acute kidney injury. That could be mostly related to diuretics. In any case, because this patient is in anasarca we will continue with the same medication although from just today the kidney function is improving. 3. History of right-sided heart failure/positive troponins. We will consult Cardiology. We will do echo, and we will go from there. 4. Cirrhosis of the liver secondary to fatty liver due to morbid obesity. Aware. 5. Patient from gastrointestinal standpoint, Dr. Gutiérrez, he is on diuretics, maybe on spironolactone, but there is nothing else that we can do from GI standpoint for this patient. 6. Urinary tract infection. Patient is on Zosyn. 7. Renal insufficiency. Acute kidney injury as we mentioned above. cc: Osiel Yusuf MD
[2016-11-20] MEDS ORDERED: ROCEPHIN 1 GM in NS 50 ML IV SCH (17:00)
[2016-11-20] MEDS: ZOSYN 3.375 GM in NS 50 ML IV SCH (18:01)
--- NOTE | 2016-11-20 18:36 | CONSULTATION ---
DATE OF CONSULTATION: 11/20/2016 REASON FOR CONSULTATION: Acute kidney injury. HISTORY OF PRESENT ILLNESS: Ms. Hernández is a 71-year-old white female who was recently discharged from this facility. She had severe volume overload, hypoxemia, weakness, large pleural effusions that required pleurodesis. She was discharged to a group home facility to treat her physical deconditioning. After 1 week of worsening lower extremity swelling and abdominal discomfort she returned to the emergency room. Her exam found a severe edema with weeping from the lower extremities but no erythema and no calf pain. There are no respiratory symptoms, chills, fevers etc. Because of her severe volume overload she was admitted to the hospital. Her initial evaluation found her creatinine 2.0. She has been treated with diuretic therapy and has been successful at achieving a negative fluid balance of approximately 2-1/2 L since admission. In that context, her creatinine has improved progressively from 2.0-1.3 though her BUN has risen from 31-44. Currently, she has a team of nurses around her working on IV access as well as a provide respiratory treatments etc. PAST MEDICAL HISTORY: Hypertension, cirrhosis, hepatic steatosis, obesity, hypothyroidism, hypertension, congestive heart failure, obesity hypoventilation syndrome, etc. HOME MEDICATIONS: Reviewed as listed. ALLERGIES: Iodine. SOCIAL HISTORY: She is and lives with her though she is currently assigned to a group home facility for rehabilitation. Former smoker. FAMILY HISTORY: Noncontributory for the present illness. LABORATORY DATA: Sodium 139, potassium 4.0, chloride 99, bicarbonate 27, BUN 44, creatinine 1.3. Hemoglobin 10.2. IMPRESSION: Acute kidney injury. Likely related to volume overload and LV dysfunction. Her kidney function has improved with simple diuresis. Her outpatient medications appear appropriate overall though she was receiving 2 different loop diuretics. She is improving and so no changes are made to her regimen and no other studies are required at this time. I will follow her labs in the morning. If she does not continue to improve then we will check a kidney ultrasound. Urine electrolytes are pending. cc: Shayan Roman MD
[2016-11-20] MEDS: ZANAFLEX PO SCH (21:42)
[2016-11-20 23:03] LABS: UR CREAT RANDOM 53.3 mg/dL (11-20); UR PROT RANDOM 27.6 mg/dL
[2016-11-21] MEDS: ZOSYN 3.375 GM in NS 50 ML IV SCH ×4 (00:54→17:13)
--- NOTE | 2016-11-21 06:21 | EKG Report ---
Test Performed on : 11/20/2016 1:45:29 PM Test Reason : dyspnea Blood Pressure : / mmHG Vent. Rate : 106 BPM Atrial Rate : 106 BPM P-R Int : 154 ms QRS Dur : 068 ms QT Int : 340 ms P-R-T Axes : 050 013 028 degrees QTc Int : 451 ms Sinus tachycardia. Otherwise normal ECG When compared with ECG of 23-OCT-2016 02:39, No significant change was found Confirmed by Abdiel Hoyos DO ([id number]) on 11/24/2016 4:14:57 PM
[2016-11-21] MEDS: LASIX 100 MG in NS 90 ML IV SCH (06:29)
--- NOTE | 2016-11-21 07:30 | CONSULTATION ---
DATE OF CONSULTATION: 11/20/2016 REQUESTING PHYSICIAN: Hospitalist service. REASON FOR CONSULTATION: Positive cardiac enzymes. HISTORY: Mrs. Hernández is an unfortunate 71-year-old female who presents to the hospital because of increasing swelling of the lower extremities. The patient had been recently admitted to this facility and was discharged home, I believe, on November 04. She spent more than 5 weeks in the hospital. The patient denies having any pain. Her appetite is not good. She has some abdominal swelling and discomfort. She denies having any chest pain. For reasons that I do not quite get here, they went ahead and checked cardiac enzymes, and those cardiac enzymes came back borderline abnormal at 0.109, 0.097, and 0.100. ProBNP was checked, and it was 531. A chest x-ray was done at the time of admission, and it showed increased markings in the right base. Lungs are slightly better expanded on current exam compared to a prior one from 5 days prior. The patient has no previous history of heart disease. PAST MEDICAL HISTORY: Positive for hypertension, morbid obesity--BMI is 55.2, hypothyroidism, obstructive sleep apnea. She has been found to have cirrhosis of the liver, and she has been diagnosed with COPD. On her most recent hospital admission, she underwent insertion of a chest tube for drainage of a chronic right pleural effusion that was done on September 28, and this was a right PleurX catheter implanted. SURGICAL HISTORY: In addition, is positive for , rotator cuff, cholecystectomy, gastric bypass, thyroidectomy, and tubal ligation. SOCIAL HISTORY: She is . She quit smoking 3 years ago. FAMILY HISTORY: Noncontributory. HOME MEDICATIONS: At the time of the current visit included Zofran, Zanaflex, Nucynta, spironolactone 50 day, simethicone 80 mg four times a day, Relafen 500 twice a day, levothyroxine 150 daily, lactulose q.12 h., Lasix 40 mg daily, Butrans 20 mcg, bumetanide 1 mg twice a day, albuterol. ALLERGIES: Iodine. PHYSICAL EXAMINATION: General: Morbidly obese, lying in bed in no obvious distress. She struggles to sit up. She cannot get up by herself. Vital signs: Blood pressure is 149/70, pulse 103, temperature 98.5. Her current weight today is 304 pounds. HEENT: Unremarkable. Chest: Diminished breath sounds at both bases. I do not hear any rales. Cardiac: Heart sounds are regular, distant, without gallop or murmur. Abdomen: Distended, tender. There is diffuse anasarca edema of the abdominal wall. There is significant tenderness over the right upper quadrant where there is like nodularity noted. There is some firmness to it. Extremities: Diffuse multiple petechiae and discoloration in upper and lower extremities. There is diffuse edema, soft 2+ to 3+ in both lower extremities. The skin is pale, and the temperature of the extremities is sort of cool distally. Pulses are markedly diminished. Neurological: Follows commands, moves four extremities. BLOOD WORK: Her sodium is 139, potassium 4.0, BUN 44, creatinine 1.3, albumin is 3.7. IMPRESSION: 1. Patient presenting with increasing lower extremity edema and some degree of dyspnea. She has anasarca edema. 2. Recurrent right-sided pleural effusion status post thoracostomy tube. 3. Morbidly obese, status post gastric bypass. 4. History of hypertension. 5. Elevation of troponin levels, possible coronary artery disease. RECOMMENDATION: This patient probably does have coronary disease based on review of previous CT scan of the chest which shows coronary calcification. From my viewpoint, that would not explain her current symptoms. That would not explain in any way her swelling and her right pleural effusion. Previous echocardiogram that we have on record indicated that she had normal left ventricular systolic function. I would probably request a followup echo, probably limited, to reassess her ejection fraction. The patient definitely needs to have very thorough renal and gastroenterological assessment of her condition, because we really need to know if her liver malfunction is the reason for this severe swelling. From my viewpoint, I would agree with current efforts to help her diurese including Lasix drip, and we will be happy to assist if there is any specific cardiac issue that arises regarding coronary heart disease. I would not shruthi that diagnosis at this point in time, because it is probably not going to lead to any favorable outcome. Please call us if you have any specific issues that you would like me to address. At this point in time, I would suggest to focus on trying to get rid of the swelling by optimizing the patient's nutritional status and continuation of the Lasix drip. cc: Christian Bassett MD
[2016-11-21 07:31] LABS: MANUAL DIFF NEEDED? NO
[2016-11-21 07:34] LABS: BASO% 0.2 % (0.0-0.8); EOS# 0.35 X1000 (0.0-0.7); EOS% 4.1 % (0.0-10.0); HEMATOCRIT 30.6 % (37.0-47.0); HEMOGLOBIN 9.5 g/dL (12.0-16.0); IMM GRAN# 0.02 X1000 (0.0-0.04); IMM GRAN% 0.2 % (0.0-0.5); LYMPH# 0.84 X1000 (1.2-3.4); LYMPH% 9.7 % (20.5-51.1); MCH 29.4 PG (27-31); MCV 94.7 FL (81-99); MONO# 0.75 X1000 (0.11-0.59); MONO% 8.7 % (1.7-9.3); MPV 11.1 FL (7.4-10.4); NEUT% 77.1 % (42.2-75.2); PLT 122 X1000 (130-400); RBC 3.23 XMIL (4.2-5.4)
[2016-11-21 07:39] LABS: INR 1.24; PROTIME 13.2 Seconds (9.2-11.7)
[2016-11-21 07:45] LABS: ALBUMIN 3.1 g/dL (3.5-5.0); CALCIUM 8.5 mg/dL (8.8-10.2); POTASSIUM 3.8 mmol/L (3.5-5.1); TOTAL BILIRUBIN 1.29 mg/dL (0.20-1.00); TOTAL PROTEIN 6.1 g/dL (6.3-8.3)
[2016-11-21] MEDS: ALDACTONE PO SCH (09:00)
[2016-11-21] MEDS: LACTULOSE PO SCH ×2 (09:00→23:17)
--- NOTE | 2016-11-21 09:59 | PROGRESS NOTE ---
DATE: 11/21/2016 SUBJECTIVE: Little change. She states she has had edema for years, although it is somewhat worse. No shortness of breath. OBJECTIVE: Vital Signs: Blood pressure 126/72, heart rate 95, respirations 16, afebrile. Intake is 127 mL; output 2 L. General: On physical exam, no acute distress. Skin: Warm and dry. Eyes: Conjunctivae are pink. Neck: Neck veins are not visible. Trachea is midline. Heart: Regular. Lungs: Have equal breath sounds. No crackles. Abdomen: Soft, nontender. Bowel sounds present. Extremities: Have 3+ to 4+ edema. No clubbing or cyanosis. LABORATORY DATA: Sodium 143, potassium 3.8, chloride 95, bicarbonate 39, BUN 27, creatinine 1.8. IMPRESSION: Acute kidney injury. She has normal renal function historically. This is attended by elevated serum bicarbonate, which strongly suggests over-diuresis. This is a difficult problem, but I do not expect that her volume status is going to respond well to diuretic therapy. I have recommended minimizing this dose. She is currently receiving 3 mg of furosemide hourly, which will work out to be around 70 mg in a day. We will observe her response. If her bicarbonate rises again tomorrow, then we will just discontinue her Lasix altogether. cc: Shayan Roman MD
[2016-11-21] MEDS: PROTONIX IV SCH (11:46)
[2016-11-21] MEDS: SODIUM CHLORIDE 0.9% INJ SCH (11:47)
--- NOTE | 2016-11-21 13:35 | PROGRESS NOTE ---
DATE: 11/21/2016 SUBJECTIVE: Patient reports feeling much better with less swelling in both legs. Denies fever or chills. OBJECTIVE: Vital Signs: Temperature 97.7 degrees, heart rate 95, respiratory rate 16, blood pressure 126/72, O2 saturation 99% on 2 L nasal cannula. General Examination: This is a morbidly obese, 71-year-old female, lying in bed in no acute distress. HEENT: Head is normocephalic, atraumatic. Anicteric sclerae and pale conjunctivae. Mucous membranes moist. Neck: Supple. No JVD noted, but very difficult to evaluate JVD because of the neck girth. No thyromegaly noted. No lymphadenopathy. Cardiovascular exam: S1, S2 heard. No murmurs, gallops, or rubs. Regular rate and rhythm. Respiratory exam: Some crackles still noted in both pulmonary rutledge. Definitely better in comparing with yesterday. Patient is not using any accessory muscles or having work of breathing. Abdomen: Soft, nontender to palpation. Bowel sounds present. No organomegaly. There is some abdominal wall edema noted. Extremities: Marked 3+ lower extremity edema that is getting a little bit better. Also, there is right inner thigh area of erythema. This is also warm and painful to palpation that is getting better. Neurological exam: Patient alert and oriented x3. Moves 4 extremities. LABORATORY DATA: White cell count 8.63, hemoglobin 9.5, hematocrit 30.6, platelets 122. BMP remarkable for creatinine 1.8, BUN 27. ASSESSMENT AND PLAN: 1. Anasarca. 2. Cirrhosis to the liver secondary to fatty liver due to morbid obesity. 3. Acute kidney injury. 4. History of right-sided heart failure/positive troponins. 5. Urinary tract infection. PLAN: The patient was admitted to the hospital for worsening bilateral lower extremity edema. Nephrology, cardiology and GI have been consulted because of the medical conditions. From GI standpoint, this patient has liver disease. She is on the right medications and so there is nothing that GI can help to manage this patient. She has chronic hypoalbuminemia that will cause worsening peripheral edema. Also from cardiac standpoint, they said that this edema is not related to elevated right heart pressures. Actually the last echo that we got here was normal. They are not going to pursue any more cardiac workup. For renal, the creatinine was higher at 2.2 and then was getting better to 1.3, but then it goes back to 1.8. In any case, I think we can continue with Lasix drip unless stopped by renal. We will continue with the spironolactone. I definitely will try to switch to oral Lasix when possible. For UTI, we will continue with Xanax. For right inner thigh cellulitis, we will continue with Zosyn. We will continue to follow this patient closely here in the hospital. cc: Osiel Yusuf MD
[2016-11-21] MEDS: NON-FORMULARY MED TOP SCH (14:41)
[2016-11-21] MEDS: ZANAFLEX PO PRN (18:46)
[2016-11-21] MEDS: SYMBICORT 160/4.5 MICROGM INHALER INH SCH (19:45)
[2016-11-21] MEDS: RELAFEN PO SCH (23:17)
[2016-11-21] MEDS: ZANAFLEX PO SCH (23:17)
[2016-11-22] MEDS: ZOSYN 3.375 GM in NS 50 ML IV SCH ×4 (01:00→18:00)
[2016-11-22 06:31] LABS: MANUAL DIFF NEEDED? NO
[2016-11-22 06:47] LABS: BASO% 0.2 % (0.0-0.8); EOS# 0.41 X1000 (0.0-0.7); EOS% 4.9 % (0.0-10.0); HEMATOCRIT 27.6 % (37.0-47.0); HEMOGLOBIN 8.6 g/dL (12.0-16.0); IMM GRAN# 0.02 X1000 (0.0-0.04); IMM GRAN% 0.2 % (0.0-0.5); LYMPH# 0.91 X1000 (1.2-3.4); LYMPH% 10.8 % (20.5-51.1); MCH 29.8 PG (27-31); MCHC 31.2 g/dL (33-37); MCV 95.5 FL (81-99); MONO# 0.79 X1000 (0.11-0.59); MONO% 9.4 % (1.7-9.3); MPV 11.2 FL (7.4-10.4); NEUT% 74.5 % (42.2-75.2); PLT 103 X1000 (130-400); RBC 2.89 XMIL (4.2-5.4)
[2016-11-22 06:52] LABS: INR 1.22
[2016-11-22] MEDS: LACTULOSE PO SCH ×2 (08:53→22:11)
[2016-11-22] MEDS: ALDACTONE PO SCH (09:10)
[2016-11-22] MEDS: RELAFEN PO SCH ×2 (09:11→21:21)
[2016-11-22] MEDS: PROTONIX IV SCH (09:11)
[2016-11-22] MEDS: SODIUM CHLORIDE 0.9% INJ SCH (09:11)
[2016-11-22] MEDS: LASIX 100 MG in NS 90 ML IV SCH (09:12)
--- NOTE | 2016-11-22 09:24 | PROGRESS NOTE ---
DATE: 11/22/2016 SUBJECTIVE: She states she is feeling okay overall. She feels like her swelling is improved. Minimal shortness of breath. OBJECTIVE: Vital Signs: Blood pressure 100/61, heart rate 83, respirations 20, afebrile. General: She is a morbidly obese, white female, sitting at 45 degrees in no acute distress. Skin: Warm and dry. Neck: Neck veins are distended. Heart: Regular and distant. Lungs: Equal. No crackles. Abdomen: Soft, nontender. Bowel sounds are present. Extremities: Have 3+ edema. It appears modestly improved from yesterday. LABORATORY DATA: Pending. IMPRESSION: Acute kidney injury overlying chronic kidney disease. Again, her baseline renal function was normal as of October 29, and her creatinine has been in the range of 1.5-2.1 since that time. This is most likely related to diuretic use. Specifically, she has a significant contraction alkalosis that is evident on her lab data. From my perspective, I would encourage minimizing her diuretics. Her labs are pending today, so I did not make any changes. If her labs are worse in the sense that her creatinine is higher or her bicarbonate is rising, then again I would advocate stopping her Lasix. She is asking to have her Relafen increased. She states she takes 2 at the time at home. I will defer this to the primary team. cc: Shayan Roman MD
--- NOTE | 2016-11-22 10:52 | Extremity Venous Study ---
PROCEDURE NAME: Venous U/S Bilateral Legs - 11/19/2016 REFERRING PHYSICIAN: Karen Razo MD. AGE AND GENDER: 71-year-old female from the ER. 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 INDICATIONS: Swelling of the limb ICD-10 M79.89. RESULTS: This is a limited study secondary the patient's obesity. The right common femoral vein and its branches, deep and superficial veins did not appear to have a thrombus within them. The right popliteal vein had flow without evidence of thrombus. Deep veins below the right knee were not imaged well. The superficial veins appeared to have no thrombus. The left common femoral vein and its branches, deep and superficial femoral veins were again imaged intermittently, and there was no evidence of gross deep venous thrombosis. Left popliteal vein had flow again without evidence of thrombus. The deep veins below the left knee were not imaged well. The superficial veins of left lower extremity appeared to not have any thrombus. INTERPRETATION: This is a limited study, but there was no gross deep venous or superficial venous thrombosis noted in either lower extremity. cc: Janine Araujo MD
[2016-11-22 11:47] LABS: POTASSIUM 4.1 mmol/L (3.5-5.1)
--- NOTE | 2016-11-22 12:10 | PROGRESS NOTE ---
DATE: 11/22/2016 SUBJECTIVE: Patient reports definitely less swelling in both legs. No fever or chills reported. OBJECTIVE: Vital Signs: Temperature 98.0 degrees, heart rate 83, respiratory rate 20, blood pressure 100/61. O2 saturation 93% on 3 L nasal cannula. General: This is a moderately obese 71- year-old female lying in bed in no acute distress. HEENT: Head is normocephalic and atraumatic. Anicteric sclerae and pale conjunctivae. Neck supple. JVD is not possible to evaluate because of the neck girth. No thyromegaly noted. No lymphadenopathy. Cardiovascular: S1, S2 heard. No murmurs, gallops, or rubs. Regular rate and rhythm. Respiratory: Very few crackles noted in both pulmonary rutledge. Patient is not using any accessory muscles or having work of breathing. Abdomen is soft, obese, nontender to palpation. Bowel sounds present. No organomegaly. Some abdominal wall edema noted. Extremities: Marked 3+ lower extremity edema that is getting a little bit better and goes up to both thighs. There is also a right inner thigh area of erythema that is getting better. Neurological: Patient alert and oriented x3. Moves 4 extremities. LABORATORY DATA: The CBC shows hemoglobin 8.6. BMP is pending. ASSESSMENT AND PLAN: 1. Anasarca. 2. Advanced cirrhosis of the liver secondary to fatty liver disease. 3. Acute kidney injury. 4. Urinary tract infection. 5. Cellulitis to right in the right inner thigh. PLAN: The patient was admitted to the hospital for worsening lower extremity edema. During her last hospitalization, she has a little bit less swelling in both legs and, because of the cirrhosis, she also had hepatic encephalopathy. I think this worsening lower extremity edema is because of the hypovolemia secondary to advanced cirrhosis. There was a suspicion for right-sided heart failure but considering this low proBNP and recent echo that did not show any systolic or diastolic dysfunction, I guess the problem that is triggering all of these issues with leg swelling is the liver cirrhosis. On admission, she was started on Lasix drip. Renal function kind of going up and down. As we mentioned before, the last hospitalization her renal function was completely fine. Dr. Roman from Nephrology is following this patient. He thinks that we may need to minimize her diuretics. They are planning to halt if creatinine and bicarbonate are getting higher. We agreed with the plan. At this time, we prefer to continue with the drip and, if needed, we will stop it later today. The patient has been seen by his primary GI doctor who recommends to continue with the current medication that she is getting. My point of view that this patient may need to be sent to [facility] to the [facility] to see if she is a candidate for a liver transplant. I do not think we need to transfer her from hospital to hospital but, at least at discharge, when she has less swelling, we may need to provide a number and get an appointment for her; otherwise, I can anticipate that this patient will be coming back and forth to the ER because this cirrhosis will just get worse and worse. At this time, we will keep this patient in the hospital and, when the lower extremity edema is better, we may discharge her most probably to rehab, although there will be a problem because she has been on rehab for almost 3 weeks. She is on oxygen 3 L/minute. We will continue with same management. cc: Osiel Yusuf MD
[2016-11-22] MEDS: SYMBICORT 160/4.5 MICROGM INHALER INH SCH (19:31)
[2016-11-22] MEDS: ZANAFLEX PO SCH (21:21)
[2016-11-23] MEDS: ZOSYN 3.375 GM in NS 50 ML IV SCH ×4 (02:07→20:14)
[2016-11-23] MEDS: LASIX 100 MG in NS 90 ML IV SCH (04:45)
[2016-11-23 07:15] LABS: INR 1.2; PROTIME 12.8 Seconds (9.2-11.7)
[2016-11-23] MEDS: SYMBICORT 160/4.5 MICROGM INHALER INH SCH ×3 (07:29→19:03)
[2016-11-23 07:43] LABS: CALCIUM 8.5 mg/dL (8.8-10.2); POTASSIUM 3.5 mmol/L (3.5-5.1)
[2016-11-23] MEDS: LACTULOSE PO SCH ×3 (09:34→20:17)
[2016-11-23] MEDS: ALDACTONE PO SCH (09:34)
[2016-11-23] MEDS: PROTONIX IV SCH (09:35)
[2016-11-23] MEDS: SODIUM CHLORIDE 0.9% INJ SCH (09:35)
[2016-11-23] MEDS: RELAFEN PO SCH ×2 (09:36→20:14)
[2016-11-23] MEDS: CALMOSEPTINE OINTMENT TOP PRN (09:36)
[2016-11-23] MEDS: ZANAFLEX PO PRN (10:18)
--- NOTE | 2016-11-23 12:22 | PROGRESS NOTE ---
DATE: 11/23/2016 SUBJECTIVE: She is discontented with her lunch. She is asking for lasagna. No shortness of breath. Legs are weeping. OBJECTIVE: Vital Signs: Blood pressure 129/77, heart rate 90, respirations 20, afebrile. Intake 800 mL. Output 470 mL. General: No acute distress. Skin: Warm and dry. HEENT: Conjunctivae are pink. Neck: Neck veins are not visible. Heart: Regular and distant. Lungs: Equal, shallow. No crackles. Abdomen: Soft, nontender. Bowel sounds present. Extremities: Have 4+ edema. No clubbing or cyanosis. LABORATORY DATA: Sodium 143, potassium 3.5, chloride 95, bicarbonate 39, BUN 31, creatinine 2.1. Hemoglobin 8.6. IMPRESSION: Acute kidney injury. Baseline creatinine is 0.7. I believe that her abnormal creatinine is related to diuretic use. Her loop diuretics now have been discontinued and she is only on spironolactone. I agree with this and we will continue to observe over the weekend. Focus on salt and water restriction and physical measures to address her swelling. No other changes. cc: Shayan Roman MD
--- NOTE | 2016-11-23 15:59 | PROGRESS NOTE ---
DATE: 11/23/2016 SUBJECTIVE: This patient is not complaining of shortness of breath or chest pain. She is still complaining of lower extremity swelling, but as per the patient it is a little bit better. She is also complaining of insomnia, and I will start this patient on melatonin. I have ordered also physical therapy. OBJECTIVE: Vital Signs: Temperature 98.9 degrees, pulse 90, respiratory rate 20, blood pressure 129/77, oxygen saturation 98 on 3 L of nasal cannula. HEENT: Head normocephalic. No trauma. PERRLA. Neck: Supple. I cannot see JVD because of her neck size. Central trachea. No thyromegaly. No lymphadenopathy. Chest: Decreased breath sounds globally, mostly at the bases. Abdomen: Soft, mild to moderately distended, positive bowel sounds. She has probably a large midline wall hernia with no pain. Extremities: 3+ lower extremity edema. up to the thigh. Neurological examination: The patient is alert and oriented x3. She moves all 4 extremities. LABORATORY: Sodium 143, potassium 3.5, chloride 95, bicarbonate 39, BUN 31, creatinine 2.1, glucose 122, calcium 8.5. ASSESSMENT AND PLAN: 1. Anasarca. Apparently this is getting better. I have stopped the diuretics because the kidney function was getting worse and the bicarbonate level was getting high. I will continue with spironolactone, though. 2. Acute kidney injury. This is likely secondary to diuretic use. Like I mentioned before, it has been stopped. Will monitor. Nephrology Department is following this patient. 3. Nonalcoholic liver cirrhosis, likely secondary to fatty liver disease. We will continue to monitor. Probably this is the source of her lower extremity edema. 4. Urinary tract infection. Continue with the same management. 5. Cellulitis of the right thigh. This is getting a little bit better. We will continue with the same management. 6. Normocytic anemia. We will continue to monitor. 7. Morbid obesity. Aware. I told the patient that she needs to focus on her diet, fluid intake and physical therapy. cc: Fahad Dickey MD
[2016-11-23] MEDS: DUONEB (A & A) INH PRN (19:03)
[2016-11-23] MEDS: ZANAFLEX PO SCH (20:14)
[2016-11-23] MEDS: MELATONIN PO SCH (20:14)
[2016-11-24] MEDS: ZOSYN 3.375 GM in NS 50 ML IV SCH ×4 (01:42→21:27)
[2016-11-24] MEDS: ZANAFLEX PO PRN (03:26)
[2016-11-24 06:36] LABS: MANUAL DIFF NEEDED? NO
[2016-11-24 06:55] LABS: BASO% 0.2 % (0.0-0.8); EOS# 0.44 X1000 (0.0-0.7); HEMATOCRIT 26.3 % (37.0-47.0); HEMOGLOBIN 8.2 g/dL (12.0-16.0); IMM GRAN# 0.02 X1000 (0.0-0.04); IMM GRAN% 0.2 % (0.0-0.5); LYMPH# 0.95 X1000 (1.2-3.4); LYMPH% 10.7 % (20.5-51.1); MCH 29.6 PG (27-31); MCHC 31.2 g/dL (33-37); MCV 94.9 FL (81-99); MONO# 0.69 X1000 (0.11-0.59); MONO% 7.8 % (1.7-9.3); MPV 11.2 FL (7.4-10.4); NEUT% 76.1 % (42.2-75.2); PLT 96 X1000 (130-400); RBC 2.77 XMIL (4.2-5.4)
[2016-11-24 06:59] LABS: INR 1.24; PROTIME 13.2 Seconds (9.2-11.7)
[2016-11-24 07:09] LABS: POTASSIUM 3.8 mmol/L (3.5-5.1)
[2016-11-24] MEDS: SYMBICORT 160/4.5 MICROGM INHALER INH SCH ×2 (07:41→19:17)
[2016-11-24] MEDS: LACTULOSE PO SCH ×3 (09:31→21:32)
[2016-11-24] MEDS: ALDACTONE PO SCH (09:35)
[2016-11-24] MEDS: PROTONIX IV SCH (09:36)
[2016-11-24] MEDS: RELAFEN PO SCH ×2 (09:36→21:28)
--- NOTE | 2016-11-24 12:10 | PROGRESS NOTE ---
DATE: 11/24/2016 SUBJECTIVE: This patient is not complaining of shortness of breath or chest pain today. She is still complaining of lower extremity swelling and as per the patient, it is a little bit better. She also was complaining of insomnia and I started this patient on melatonin yesterday and apparently it is working for her. I will get a new chest x-ray tomorrow and also I will restart this patient on Nucynta; this is part of her home medications. Yesterday also I stopped the insulin drip. Her kidney function is the same compared with yesterday. So for now, I will continue with the same management. Nephrology department is also following this patient. OBJECTIVE: Vital Signs: Temperature 98.1 degrees, pulse 77, respiratory rate 18, blood pressure 111/65, oxygen saturation 98 on 3 L of nasal cannula. HEENT: Head normocephalic. No trauma. PERRLA. Neck: Supple. I cannot see JVD because of her neck size. Central trachea. No thyromegaly. No lymphadenopathy. Chest: Decreased breath sounds globally, mostly at the bases. Abdomen: Soft. Mildly to moderately distended. Positive bowel sounds. She probably has a large midline wall hernia with no pain. Extremities: There is 3+ lower extremity edema up to the thigh. Neurological: The patient is alert and oriented x3. No focal neurological deficits. LABORATORY: WBC 8.8, hemoglobin 8.2, hematocrit 26.3, platelets 96,000. Sodium 140, potassium 3.8, chloride 95, bicarbonate 34, BUN 31, creatinine 2.1, glucose 112, calcium 8. ASSESSMENT AND PLAN: 1. Anasarca. Apparently this is getting better but I do not see any big changes compared with yesterday. Yesterday I stopped the Lasix drip and I will continue with the Aldactone. Her bicarbonate level is better today. 2. Acute kidney injury. BUN and creatinine are the same compared with yesterday. For now we will continue with the same management. 3. Known alcoholic liver cirrhosis, likely secondary to fatty liver disease. Will continue to monitor. Likely this is the source of her lower extremity edema. 4. Urinary tract infection. Continue with the same management. 5. Cellulitis in the right thigh. This is getting better. Continue with the same management. 6. Normocytic anemia. We will continue to monitor. 7. Morbid obesity. Aware. I told the patient that she needs to focus on her diet, fluid intake, and physical therapy. cc: Fahad Dickey MD
[2016-11-24] MEDS: ZANAFLEX PO SCH (21:27)
[2016-11-24] MEDS: MELATONIN PO SCH (21:27)
[2016-11-24] MEDS: NUCYNTA PO SCH (21:30)
[2016-11-25] MEDS: ZOSYN 3.375 GM in NS 50 ML IV SCH ×4 (04:40→21:10)
[2016-11-25 06:23] LABS: MANUAL DIFF NEEDED? NO
[2016-11-25 06:28] LABS: BASO% 0.2 % (0.0-0.8); EOS# 0.44 X1000 (0.0-0.7); EOS% 4.2 % (0.0-10.0); HEMOGLOBIN 9.2 g/dL (12.0-16.0); IMM GRAN# 0.02 X1000 (0.0-0.04); IMM GRAN% 0.2 % (0.0-0.5); LYMPH# 1.15 X1000 (1.2-3.4); MCH 29.9 PG (27-31); MCHC 31.7 g/dL (33-37); MCV 94.2 FL (81-99); MONO# 0.81 X1000 (0.11-0.59); MONO% 7.7 % (1.7-9.3); MPV 11.2 FL (7.4-10.4); NEUT% 76.7 % (42.2-75.2); PLT 103 X1000 (130-400); RBC 3.08 XMIL (4.2-5.4)
[2016-11-25 06:50] LABS: ALBUMIN 2.6 g/dL (3.5-5.0); TOTAL BILIRUBIN 1.07 mg/dL (0.20-1.00); TOTAL PROTEIN 5.9 g/dL (6.3-8.3)
--- NOTE | 2016-11-25 07:29 | Diag Imaging Result Doc PS360 ---
EXAM: CHEST-PORTABLE INDICATION: F/U chest tube TECHNIQUE: One view COMPARISON: 11/19/2016 FINDINGS: Increased lung markings at the right lower lung zone are unchanged. They probably represent atelectasis. No new consolidation is appreciated. Cardiac silhouette is stable. IMPRESSION: Stable chest. Electronically signed by Efrain Yousif 11/25/2016 7:26 AM
[2016-11-25] MEDS: SYMBICORT 160/4.5 MICROGM INHALER INH SCH ×2 (07:39→19:06)
[2016-11-25] MEDS: DUONEB (A & A) INH PRN ×4 (07:39→19:06)
[2016-11-25] MEDS: LACTULOSE PO SCH ×3 (09:54→21:10)
[2016-11-25] MEDS: NUCYNTA PO SCH ×2 (09:54→21:12)
[2016-11-25] MEDS: ALDACTONE PO SCH (09:54)
[2016-11-25] MEDS: SODIUM CHLORIDE 0.9% INJ SCH (09:55)
[2016-11-25] MEDS: PROTONIX IV SCH (09:55)
[2016-11-25] MEDS: RELAFEN PO SCH ×2 (09:57→21:12)
[2016-11-25] MEDS: CALMOSEPTINE OINTMENT TOP PRN (10:03)
[2016-11-25] MEDS ORDERED: VITAMIN D PO SCH (12:00)
--- NOTE | 2016-11-25 14:52 | PROGRESS NOTE ---
DATE: 11/25/2016 SUBJECTIVE: Patient states that she has been having 4-5 bowel movements a day. She does not want to take her lactulose. OBJECTIVE: Vital signs: Temperature 98.6 degrees, pulse 91, respiratory rate 15, blood pressure 131/68, intake 200 mL, output 1.4 L. General: Elderly female resting in bed. Awake and alert, no acute distress. HEENT: Normocephalic, atraumatic. Oral mucosa moist. Neck: Is thick, supple, unable to discern JVD. Cardiovascular: Regular rate and rhythm. Distant heart sounds noted. Pulmonary: Equal excursion. She has decreased breath sounds to the bases. She has no wheeze or rhonchi noted, is on O2 supplementation via nasal cannula but is able to lie flat in bed. Abdomen: Soft with positive bowel sounds. : Not inspected. Extremities: She has 4+ hard edema with weeping noted bilateral lower extremities. She has woody vascular changes noted bilateral lower extremities. Integumentary: Skin is warm. Again, she has weeping noted to lower extremities from her edema. LAB DATA: WBC of 10.5, hemoglobin 9.2, sodium 141, potassium 4.0, CO2 35, BUN 32, creatinine 2.1, calcium 8.0, albumin 2.6. ASSESSMENT AND PLAN: 1. Acute kidney injury secondary to diuretic use along with decreased intravascular volume. Again she remains on spironolactone. We will continue with salt and water restriction. She has been in negative territory over the last several days. We have nothing else to add today. Continue to check labs in the morning. 2. Diarrhea ammonia level. The patient does not want to take her lactulose today secondary to the frequent loose stools. We will check an ammonia level. Defer to primary. Dictated by MJ Salamanca for Shayan Roman MD Patient seen, data reviewed, discussed with Daniel Mcgee on 11/25/16. I agree with the above assessment and plan of care rg cc: Shayan Roman MD [facility]
--- NOTE | 2016-11-25 16:41 | PROGRESS NOTE ---
DATE: 11/25/2016 SUBJECTIVE: Patient reports feeling fine. Denies any shortness of breath. Reports she is still having the edema in both lower extremities, unchanged in comparing with previous days. OBJECTIVE: Vital Signs: Temperature 97.8 degrees, heart rate 93, respiratory rate 20, blood pressure 122/67, O2 saturation 98% on room air. General Examination: This is a 71-year-old morbidly obese, female lying in bed, in no acute distress. HEENT: Head is normocephalic, atraumatic. Anicteric sclerae and pale conjunctivae. Mucous membranes moist. Neck: Supple. No JVD noted because of the neck girth. No carotid bruits. No lymphadenopathy. Cardiovascular: S1, S2 heard. No murmurs, gallops, or rubs. Regular rate and rhythm. Respiratory: Decreased breath sounds globally, but patient is not using any accessory muscles or having work of breathing. Abdomen: Soft, nontender to palpation. Bowel sounds present. No organomegaly. Extremities: No clubbing or cyanosis. 3+ lower extremity edema up to the thigh and the area of erythema in the right thigh is definitely much better. Neurological: Patient alert oriented x2. Moves 4 extremities. LABORATORY DATA: White cell count 10. , hemoglobin 9.2, hematocrit 29, platelets 103,000. BMP shows creatinine 2.1 and BUN 32. ASSESSMENT/PLAN: 1. Anasarca. There have not been any changes recently. From the last 3 days that I have been seeing this patient, basically the swelling is the same. The patient has been off of Lasix for the last 24 hours. I think we can continue using Lasix because of renal dysfunction that may get even worse. We will continue with Aldactone. Bicarbonate level is better. 2. Acute kidney injury. The BUN and creatinine are actually very similar to previous days. Nephrology is following this patient. 3. Nonalcoholic liver cirrhosis, likely secondary to fatty liver disease. I think this is the main problem with this patient. I had a long conversation with the about what the possibility that we have what is the prognosis. I think this patient will need a second opinion and my suggestion is to send this patient to [facility] to see if there is any option for her and to see if she is a candidate for any liver transplant. Her liver enzymes are normal, but her INR is slightly elevated, and along with the fact that she had thrombocytopenia makes me think that the problem is definitely liver. We have consulted Cardiology to see there is any heart problem that would explain this massive anasarca and of course the heart is not a problem. Kidney functioning is stable. At this point, we will continue with the same management. 4. Urinary tract infection, the urine culture is positive for Klebsiella pneumonia and Escherichia coli sensitive to cefazolin. We are going to switch Zosyn to this medication. 5. Cellulitis in the right thigh that is getting better. At this point, we are going to use cefazolin for that condition. 6. Normocytic anemia. We will continue to monitor. 7. Morbid obesity, aware. 8. Physical deconditioning. This patient has been sent recently to rehab and they prefer at this time to go home with home health services. We will follow patient's wishes. cc: Osiel Yusuf MD
--- NOTE | 2016-11-25 17:04 | PROGRESS NOTE ---
DATE: 11/25/2016 SUBJECTIVE: This patient is known to me from her previous hospitalization, at which time we placed a right Pleurx catheter for a massive right pleural effusion. With her improvement she has stopped producing pleural fluid. Her Pleurx catheter has been capped off since her discharge. She was readmitted last week and does not show any evidence of recurrent right pleural effusion despite the Pleurx catheter being capped. I have been asked therefore to remove the catheter. OBJECTIVE: Vital signs: She is afebrile, heart rate 93, respiratory rate 20, blood pressure 122/67. General: She is awake, alert, and oriented. Lungs: Bilateral breath sounds are present. Heart: Regular rate and rhythm. Chest: The catheter is noted at the exit the right pleural space. ASSESSMENT: Resolved right pleural effusion. PLAN: Removal of right-sided pleural catheter. I have discussed this with her. She understands and agrees to proceed. cc: Carlitos Napoles MD
[2016-11-25] MEDS: ZANAFLEX PO SCH (21:11)
[2016-11-25] MEDS: MELATONIN PO SCH (21:12)
[2016-11-26] MEDS: ZOSYN 3.375 GM in NS 50 ML IV SCH (03:57)
[2016-11-26 06:51] LABS: CALCIUM 8.1 mg/dL (8.8-10.2); POTASSIUM 4.1 mmol/L (3.5-5.1)
[2016-11-26] MEDS: SYMBICORT 160/4.5 MICROGM INHALER INH SCH ×2 (07:43→18:56)
[2016-11-26] MEDS: DUONEB (A & A) INH PRN ×3 (07:43→18:56)
[2016-11-26] MEDS ORDERED: XYLOCAINE 1%/EPI 1:100,000 ONE (08:30)
--- NOTE | 2016-11-26 09:44 | PROGRESS NOTE ---
DATE: 11/26/2016 SUBJECTIVE: She is about the same. She states her symptoms are improved. She anticipates removal of her right chest tube today. OBJECTIVE: Vital Signs: Blood pressure 101/51, heart rate 85, respirations 16, afebrile. Intake 750 mL. Output 750 mL. PHYSICAL EXAMINATION: No acute distress. Skin is warm and dry. Conjunctivae are pink. Neck veins are not visible. Heart: Regular. Lungs are equal. Abdomen is obese and soft. Bowel sounds are present. Extremities have 3+ edema primarily on the abdominal wall and upper thighs. LABORATORY DATA: Sodium 140, potassium 4.1, chloride 94, bicarbonate 37. BUN 35, creatinine 2.4. IMPRESSION: 1. Acute kidney injury. Little plant changer time. Her only diuretic at this point is spironolactone 50 mg. No changes. Her serum bicarbonate remains elevated indicating chloride depletion. Nothing further to add. cc: Shayan Roman MD
[2016-11-26] MEDS: NUCYNTA PO SCH ×2 (10:19→19:59)
[2016-11-26] MEDS: PROTONIX IV SCH (10:20)
[2016-11-26] MEDS: SODIUM CHLORIDE 0.9% INJ SCH (10:20)
[2016-11-26] MEDS: ALDACTONE PO SCH (10:20)
[2016-11-26] MEDS: LACTULOSE PO SCH ×2 (10:20→19:59)
--- NOTE | 2016-11-26 12:05 | OPERATIVE NOTE ---
PROCEDURE DATE: 11/26/2016 NAME OF PROCEDURE: Removal of right-sided Pleurx catheter. SURGEON: Carlitos Napoles MD. DIGITAL PHOTOGRAPHER: Rachael. PREOPERATIVE DIAGNOSIS: History of right pleural effusion. POSTOPERATIVE DIAGNOSIS: Resolved right pleural effusion. DESCRIPTION OF PROCEDURE: Satisfactory monitoring, anesthesia care was established. The right anterolateral chest was prepped and draped in a sterile fashion with the exit site exposed. We anesthetized the skin with 1% lidocaine with epinephrine. Incised the skin at the exit site. We then freed the cuff from the surrounding subcutaneous tissue. This allowed easy delivery of the pleural catheter out of the right pleural space. We then closed the skin that we had incised with a 4-0 Polysorb subcuticular stitch. Sterile dressing was applied. She tolerated it well. cc: Carlitos Napoles MD
[2016-11-26] MEDS: RELAFEN PO SCH ×2 (12:54→20:00)
[2016-11-26] MEDS: ZOSYN 2.25 GM in NS 50 ML IV SCH ×2 (12:57→18:13)
--- NOTE | 2016-11-26 14:43 | PROGRESS NOTE ---
DATE: 11/26/2016 SUBJECTIVE: The patient reports feeling fine. No complaints at this time. No shortness of breath. OBJECTIVE: Vital Signs: Temperature 97.9 degrees, heart rate 97, respiratory rate 18, blood pressure 119/52, O2 saturation 98% on 2 L nasal cannula. General Examination: This is a chronically ill-looking, morbidly-obese, 71-year-old female lying in bed, in no acute distress. HEENT: Head is normocephalic, atraumatic. Neck: Supple. No JVD noted because of neck girth. No carotid bruits. No lymphadenopathy. Cardiovascular: S1, S2 heard. No murmurs, gallops, or rubs. Regular rate and rhythm. Respiratory: Decreased breath sounds globally. The patient not using any accessory muscles or having work of breathing. Abdomen: Soft, obese, nontender to palpation. Bowel sounds present. No organomegaly. Extremities: No clubbing or cyanosis, 3+ lower extremity edema up to both knees, unchanged when compared with yesterday. Erythema in the right thigh is definitely much better. Neurological: The patient alert oriented x3. Moves 4 extremities. LABORATORY DATA: BMP shows creatinine 2.4, with a GFR 20. ASSESSMENT.: 1. Anasarca, secondary to liver disease. We have discontinued Lasix because of worsened renal dysfunction. Currently, this patient is receiving Aldactone. Will continue with same management. 2. Acute kidney injury. There has been a little bit increase in creatinine to 2.[address] Roman following this patient. No new recommendations from today. 3. Nonalcoholic liver cirrhosis, likely secondary to fatty liver disease. We had a long conversation with the yesterday about this problem, and our plan is to try to send this patient to [facility] to have a second opinion about her liver dysfunction. 4. By now, the patient cannot be on furosemide, but will continue with Aldactone. 5. Urinary tract infection. The urine culture positive for Klebsiella and Escherichia coli that is sensitive to cefazolin. Upon discharge we will switch to cephalexin. 6. Cellulitis of the right thigh, getting better. We will continue with the same management. 7. Normocytic anemia. We will continue to monitor. 8. Morbid obesity, aware. 9. Physical deconditioning. The patient has been in rehabilitation facility for almost 20 days, but because of her on current medical condition she was sent back. In any case, Physical Therapy is working with this patient and she will be, according to the , taken home. At this time, the family asked to set up home health services. I think this patient will be discharged either tomorrow or the day after. cc: Osiel Yusuf MD
[2016-11-26] MEDS: ZANAFLEX PO SCH (19:59)
[2016-11-26] MEDS: MELATONIN PO SCH (20:00)
[2016-11-27] MEDS: ZOSYN 2.25 GM in NS 50 ML IV SCH ×4 (01:43→20:22)
[2016-11-27 06:48] LABS: CALCIUM 8.6 mg/dL (8.8-10.2); POTASSIUM 4.9 mmol/L (3.5-5.1)
[2016-11-27] MEDS: DUONEB (A & A) INH PRN (07:35)
[2016-11-27] MEDS: SYMBICORT 160/4.5 MICROGM INHALER INH SCH ×2 (07:35→20:29)
[2016-11-27] MEDS: NUCYNTA PO SCH ×2 (09:23→20:22)
[2016-11-27] MEDS: ALDACTONE PO SCH (09:25)
[2016-11-27] MEDS: PROTONIX IV SCH (09:27)
[2016-11-27] MEDS: RELAFEN PO SCH (09:28)
[2016-11-27] MEDS: LACTULOSE PO SCH ×2 (09:28→20:26)
--- NOTE | 2016-11-27 11:14 | PROGRESS NOTE ---
DATE: 11/27/2016 SUBJECTIVE: She states she is getting better. She feels like therapy has been going well and she has been able to walk. Appetite is good. OBJECTIVE: Vital Signs: Blood pressure 106/64, heart rate 82, respiration 18, afebrile. Intake 900 mL. Output 750 mL. General: No acute distress. Skin: Warm and dry. Eyes: Conjunctivae are pink. Neck: Neck veins are not visible. Heart: Regular without gallops. Lungs: Have equal breath sounds. Shallow, distant, no crackles. Abdomen: Soft, nontender. Obese. Edema in the abdominal wall. Extremities: Have 2+ edema and bruising on the extremities. No clubbing or cyanosis. LABORATORY DATA: Sodium 141, potassium 4.9, chloride 96, bicarbonate 36, BUN 37, creatinine 2.3. Hemoglobin 9.2. IMPRESSION: 1. Volume overload. About the same. She is tolerating this well. No changes. 2. Electrolytes acceptable. 3. Acid-base: Still with contraction alkalosis. cc: Shayan Roman MD
[2016-11-27] MEDS ORDERED: BUPRENORPHINE 20 MCG TD SCH (11:59)
--- NOTE | 2016-11-27 13:46 | PROGRESS NOTE ---
DATE: 11/27/2016 SUBJECTIVE: 1. Patient reports feeling fine. Able to stand up today. Makes some steps around the bed. 2. No shortness of breath. No fever. OBJECTIVE: Vital Signs: Temperature 98.2 degrees, heart rate 82, respiratory rate 18, blood pressure 106/64, O2 saturation 93% 2 L nasal cannula. General examination: This is a chronically ill-looking, morbidly obese, 71-year-old female lying in bed in no acute distress. HEENT: Head is normocephalic, atraumatic. Anicteric sclerae and pale conjunctivae. Neck: Supple. No JVD noted because of the neck girth. No carotid bruits. No lymphadenopathy. Cardiovascular exam: S1, S2 heard. No murmurs, gallops, or rubs. Regular rate and rhythm. Respiratory exam: Decreased breath sounds globally. Patient is not using any accessory muscles or having work of breathing. Abdomen: Soft, obese,nontender to palpation. Bowel sounds present. No organomegaly. Extremity: No clubbing or cyanosis. There is 3+ lower extremity edema on both sides up to both knees, unchanged in comparing with yesterday. Erythema on the right side is definitely much better. Neurological exam: Patient alert and oriented x3. Moves 4 extremities. LABORATORY DATA: The creatinine is 2.3. ASSESSMENT AND PLAN: 1. Anasarca secondary to liver disease. Both lower extremities swelling is still the same because we have to discontinue Lasix because of renal dysfunction. In any case, the patient is still on Aldactone and will continue with same management. 2. Acute kidney injury. The creatinine is around the same number. In this case , 2.3, and yesterday was 2.4. I think that number may be his new baseline. Dr. Roman following this patient. No new recommendations from today. 3. Known alcoholic liver cirrhosis likely secondary to fatty liver disease. As we mentioned in previous notes, our goal is to try to send this patient to [facility] to go for a second opinion about her liver dysfunction as outpatient. 4. Urinary tract infection. Patient is on Zosyn, but can be switched to cephalexin upon discharge. 5. Cellulitis of the right thigh, getting better. We will continue with same management. 6. Normocytic anemia. We will continue to monitor, but the hemoglobin is stable. 7. Morbid obesity, aware. 8. Physical deconditioning. Patient working with physical therapy, and we had talked with the family and they agreed to go home with home health tomorrow morning. cc: Osiel Yusuf MD MTDD
[2016-11-27] MEDS: MELATONIN PO SCH (20:23)
[2016-11-27] MEDS: ZANAFLEX PO SCH (20:23)
[2016-11-28] MEDS: ZOSYN 2.25 GM in NS 50 ML IV SCH ×2 (01:39→07:43)
[2016-11-28 07:16] LABS: CALCIUM 8.4 mg/dL (8.8-10.2); POTASSIUM 4.5 mmol/L (3.5-5.1)
[2016-11-28] MEDS: SYMBICORT 160/4.5 MICROGM INHALER INH SCH (07:46)
[2016-11-28] MEDS: DUONEB (A & A) INH PRN ×2 (07:46→11:43)
[2016-11-28 07:48] VITALS: BP 151/77
[2016-11-28] MEDS: LACTULOSE PO SCH (08:28)
[2016-11-28] MEDS: ALDACTONE PO SCH (08:29)
[2016-11-28] MEDS: NUCYNTA PO SCH (08:29)
[2016-11-28] MEDS: SODIUM CHLORIDE 0.9% INJ SCH (08:29)
[2016-11-28] MEDS: PROTONIX IV SCH (08:29)
[2016-11-28] MEDS: NON-FORMULARY MED TOP SCH (11:30)
--- NOTE | 2016-11-29 10:35 | DISCHARGE SUMMARY ---
ADMISSION DATE: 11/19/2016 DISCHARGE DATE: 11/28/2016 CONSULTATIONS: 1. Dr. Bassett with cardiology. 2. Dr. Roman with nephrology. 3. Dr. Carlitos Napoles with general surgery. PERTINENT PROCEDURES: 1. Bilateral venous Dopplers. Limited study. There was no gross deep venous or superficial venous thrombosis noted in either lower extremity. 2. Chest x-ray showed overall improved respiratory effort at rest, stable exam. SURGICAL PROCEDURE: Removal of right-sided PleurX catheter by Dr. Carlitos Napoles. DISCHARGE DIAGNOSES: 1. Anasarca secondary to liver disease. The patient will continue on Lasix and Aldactone. Stable. 2. Acute kidney injury with little change. 3. Volume overload remains about the same. She is tolerating well. No changes per nephrology. Her electrolytes are acceptable. Acid base still with contraction alkalosis. Stable. 4. Known liver cirrhosis secondary to fatty liver disease. The goal is to get the patient to [facility] for second opinion about her liver dysfunction on an outpatient basis. 5. Urinary tract infection. The patient will be switched to oral antibiotics. 6. Cellulitis of the right thigh with improvement. 7. Normocytic anemia. Hemoglobin and hematocrit is stable. 8. Morbid obesity. Aware. Patient has been educated on diet and exercise. 9. Physical deconditioning. The patient has been working with physical therapy and had extensive talks with the family about rehabilitation again. However, they want to go home with home health. HOSPITAL COURSE: Ms. Hernández is a 71-year-old, female, well known to our service. She carries a past medical history of COPD on home O2 nebulizers, hypertension, cirrhosis of the liver secondary to fatty liver disease, morbid obesity, hypothyroidism, recently discharged from our facility on 11/04/2016 and sent to rehabilitation. On last admission, she was admitted because she had huge effusion that required the placement of a right PleurX catheter. She was severely deconditioned and required rehabilitation. While she was at the intermediate, they noticed lower extremity edema getting worse. Her extremities had been weeping. Workup revealed a white count of 14, hemoglobin and hematocrit of 11 and 35, BUN of 31, a creatinine of 2, AST of 420, ALT of 14, alkaline phosphatase of 115 and troponin of 0.109. Urinalysis was positive for nitrates, too numerous to count white cells. Chest x-ray did not show anything acute. She was admitted for Anasarca multifactorial related to her underlying liver disease. Initiated on IV Lasix. Initially started on a Lasix drip. Watched her creatinine and followed her creatinine closely. Serial cardiac enzymes. Consult for nephrology and cardiology. Started her on IV antibiotics and followed her cultures for her UTI, as well as a consult for GI. Dr. Gutiérrez did see the patient. He felt all that could be done was continue her diuretics and give her diuretics with her Aldactone and Lasix. Getting Dr. Roman involved to help adjust with diuretics and giving albumin infusion. He also explained in the past about her cirrhosis of the liver to her and her , as well as the primary care doctor who is taking care of her that nothing can be done regarding her cirrhosis of the liver at this point. She was assessed by cardiology for elevated enzyme. He was in agreement with her current management, and was there to assess if any specific further cardiac issues were to arise in regards to any coronary heart disease. The patient was diuresed with IV Lasix for a couple of days. Her bicarbonate did get worse. Her creatinine did not improve. She was taken off her diuretics and was only on spironolactone. She was also continued on salt water restriction. While she was inhouse, Dr. Carlitos Napoles did remove her PleurX catheter. She had resolved right pleural effusion. Her creatinine has been around 2.1- 2.4, BUN 35-37. Fluid volume status has remained about the same. Although she has tolerated that well, she will still need to remain on strict I's and O's. At discharge she is feeling better. She has been working with physical therapy. She has been able to get up and walk around. Her appetite is good. Dr. Oglesby did speak with her about going back to rehabilitation, however the patient and the are insistent on going home with home health. VITAL SIGNS: At time of discharge, temperature is 97.7 degrees, heart rate 94, respirations 18, blood pressure 151/77, O2 was 99% on 3 L nasal cannula. DISCHARGE DIET: 2 g sodium. DISCHARGE MEDICATIONS PER DR. OGLESBY: 1. DuoNeb 3 mL inhaled q. 6 hours p.r.n. 2. Dulcolax 10 mg [place] daily. 3. Symbicort 160/4.5 mcg inhaler one puff inhaled b.i.d. 4. Bumetanide 1 mg p.o. b.i.d. 5. Butrans 20 mcg TDWE. 6. Cephalexin 500 mg p.o. t.i.d. 7. Vitamin D 50,000 units p.o. 7 days. 8. Lasix 40 mg p.o. daily. 9. Lactulose 30 mL p.o. q. 12 hours titrate to have 3 bowel movements daily. 10. Synthroid 150 mcg p.o. daily. 11. Zofran 4 mg p.o. q. 6 hours p.r.n. 12. Mylicon 80 mg p.o. four times a day. 13. Aldactone 50 mg p.o. daily. 14. Nucynta 50 mg p.o. b.i.d. 15. Zanaflex 4 mg p.o. at bedtime. FOLLOWUP: Ms. Hernández is being discharged back home with home health. She will need to follow up with her primary care physician, Dr. Elías Oh. She will need to work with Dr. Gutiérrez to follow up with an outpatient GI specialist at [facility]. She will continue to follow Dr. Roman. She can return to the ED for any worsening of symptoms. Addendum: Patient seen and examined. Agree with MJ note. It reflects my assessment and plan. Patient and explained on depth about the importance of follow up with GI. I personally called GI service at [facility]. Patient will be given an appointment for a second opinion regarding his liver cirrhosis with anasarca which is the main reason patient keeps coming to hospital. Dictated by MJ Ruth for Osiel Yusuf MD cc: MD Elías Mcduffie MD [facility]
== END 2016-11-28 12:08 | disposition home health service (06) ==
LOC: SUPCPDRO → ED 12:29 → EDIPHOLD 21:02 → SUATTDRO 21:02 → 3N 11-20 11:14
PROVIDERS: ATTEND Internal Medicine